=== PATIENT | male | born 1945 | race Caucasian/White ===

== ENCOUNTER 2017-05-28 13:53 | Emergency (ER) | payer MEDICARE, OTHER ==
[~2017-05-28] VITALS: Ht 185.4 cm; Wt 127.0 kg
[~2017-05-28 13:53] MED LIST: ACET500; ALBU3IS; ALBU90OI; ALBU90OI INH; ALBU90OI6 INH; ALPHA LIPOIC A200 MG; AMLO10; ASCO500 PO; ASPI325EC PO; ASPI81CH PO; ATOR40TA; ATOR40TA PO; AZELASTINE137 MCG/0.; AZELASTINE137 MCG/0. NS; Adipex-P37.5 MG PO; Afrin15 ML; Ambien10 MG; Amiodarone HCl200 MG PO; Aspir 8181 MG PO; BETA.05TC; BISA10S PR; BUPR100 PO; BUPR150ER PO; BUPR75 PO; CARV6.25 PO; CETI5 PO; CILO100 PO; CLIN1TS; CLIN1TS TOP; CLOB.05TC; CLON1 PO; CLOP75 PO; CYCL10 PO; Carvedilol6.25 MG PO; Celexa10 MG PO; Cipro500 MG PO; Cortisporin Ear10 M1; DOCU100 PO; DULO60 PO; Desyrel50 MG PO; Doxycycline Hy100 MG PO; EPIN.3I; EPIN.3I IM; EPIPEN0.3 MG/0.3 IM; ERGO50000 PO; ESCI10 PO; FAMO20 PO; FLUSAL2505 INH; FURO20 PO; FURO40 PO; Flonase 0.05% N16 GM; GAVILAX17 G1 PO; GLIM4 PO; Glimepiride2 MG PO; Glucophage1000 MG PO; HYDACE10B; Hytrin2 MG PO; INSDET100 SQ; INSUASPI INJ; INSUASPI SC; INSUGL100V INJ; Ipratr-Albuterol3 ML INH; JARDIANCE10 MG PO; KENALOG; LEVSOD100 PO; LIDO5TP TOP; LIRA0.6P INJ; LISI20 PO; Levemir Fl100 UNIT/M; MAGOXI400; MAGOXI400 PO; MEDI-PATCH WIT1 EACH TP; MELOXICAM; METF500; METO25ER PO; METTREX2.5 PO; MINO100 PO; MOME.1TC INH; MORP15ER PO; NAC600 MG; NITR.4SL SL; NYST100P TOP; NYST100TC; NYSTATIN1 EAC1 MC; Norco 5-325 Ta1 EACH PO; OSTERA TABLET1 EACH PO; OXYACE5T PO; OXYM.05NI; PANT40; PANT40 PO; PLETAL100 MG PO; POTCHL20ER PO; PREG75; PREG75 PO; PROM12.5S PO; PROM25 PO; Percocet 5-3251 EACH PO; Prednisone20 MG PO; ROPI.25; ROPI.25 PO; ROPI1 PO; SELENIUM SULFI120 ML TP; SENN187 PO; SITA100T2 PO; SOTO80 PO; Senna8.6 M1 PO; Senna8.6 MG PO; Sotalol120 MG PO; TAMS.4ER PO; TERA5 PO; TIOT18; TIOT18 INH; TORSE20; TORSE20 PO; TOUJEO SOL300 UNIT/1; TOUJEO SOL300 UNIT/1 SC; TRAM50 PO; TRAZ50 PO; VITAMIN D2000 UNIT PO; Ventolin Soln3 ML INH; XARELTO15 MG PO; XARELTO20 MG; XARELTO20 MG PO; ZOLP5 PO; Zithromax250 MG PO; Zofran Odt4 MG PO; [UNRECOGNIZED DRUG - OTHER]
[2017-05-28 14:56] LABS: BASOPHILS ABSOLUTE AUTO 0.06 K/mm3 (0.00-0.23); BASOPHILS PERCENT AUTO 1 % (0-2); EOSINOPHILS ABSOLUTE AUTO 0.09 K/mm3 (0.00-0.68); EOSINOPHILS PERCENT AUTO 1 % (0-6); Hematocrit 42.4 % (37.0-53.0); Hemoglobin 12.9 g/dL (13.5-17.5); IMMATURE GRAN ABSOLUTE AUTO 0.04 K/mm3 (0.00-0.10); IMMATURE GRAN PERCENT AUTO 1 % (0-1); LYMPHOCYTES ABSOLUTE AUTO 1.16 K/mm3 (0.84-5.20); LYMPHOCYTES PERCENT AUTO 16 % (21-46); MONOCYTES ABSOLUTE AUTO 0.37 K/mm3 (0.16-1.47); MONOCYTES PERCENT AUTO 5 % (4-13); Mean Corpuscular HGB 27.9 pg (26.0-34.0); Mean Corpuscular HGB Conc 30.4 g/dL (31.5-36.5); Mean Corpuscular Volume 92 fL (80-100); Mean Platelet Volume 11.1 fL (9.1-12.4); NEUTROPHILS ABSOLUTE AUTO 5.76 K/mm3 (1.96-9.15); NEUTROPHILS PERCENT AUTO 77 % (41-73); Platelet Count 163 K/mm3 (150-400); RDW Coefficient Variation 15.7 % (11.7-14.2); RDW Standard Deviation 52.4 fL (35.1-46.3); Red Blood Cell Count 4.62 M/mm3 (4.30-5.90); White Blood Cell Count 7.48 K/mm3 (4.00-11.30)
[2017-05-28 15:18] LABS: Alanine Aminotransfer (ALT/SGP 34 U/L (12-78); Albumin, Blood 3.5 g/dL (3.4-5.0); Albumin/Globulin Ratio 0.9 (0.8-1.8); Alk Phos 138 U/L (50-136); Anion Gap 7 mmol/L (6-16); Aspartate Aminotrans (AST/SGOT 25 U/L (12-37); Bilirubin, Total 0.5 mg/dL (0.1-1.0); Blood Urea Nitrogen 19 mg/dL (8-24); Bun/Creatinine Ratio 16.2 (12.0-20.0); CO2, Blood 24 mmol/L (21-32); Calcium, Blood 8.8 mg/dL (8.5-10.1); Chloride, Blood 111 mmol/L (98-108); Creatinine, Blood 1.17 mg/dL (0.60-1.20); Globulin, Blood 3.7 g/dL (2.2-4.0); Glomerular Filtration Rate >60 (60-); Glucose, Blood 156 mg/dL (70-99); Potassium, Blood 4.5 mmol/L (3.5-5.5); Sodium, Blood 142 mmol/L (136-145); Total Protein, Blood 7.2 g/dL (6.4-8.2); Troponin I <0.015 ng/mL (0.000-0.040)
== END 2017-05-28 16:07 | disposition home or self-care (01) ==
LOC: ER 13:53
PROVIDERS: Emergency Medicine
DX: E87.70 Fluid overload, unspecified (principal); I48.91 Unspecified atrial fibrillation; I12.9 Hypertensive chronic kidney disease with stage 1 through stage 4 chronic kidney disease, or unspecified chronic kidney disease; E11.22 Type 2 diabetes mellitus with diabetic chronic kidney disease; E66.01 Morbid (severe) obesity due to excess calories; N18.9 Chronic kidney disease, unspecified; E78.5 Hyperlipidemia, unspecified; Z87.891 Personal history of nicotine dependence
CPT/HCPCS: 36415; 71046; 80053; 83880; 84484; 85025; 93005; 93010; 93971; 99284

== ENCOUNTER 2018-04-17 14:38 | Emergency (ER) | payer MEDICARE, OTHER ==
[~2018-04-17] VITALS: Ht 182.9 cm; Wt 127.5 kg
[~2018-04-17 14:38] MED LIST changes: -INSUASPI SC; +Novolog100 UNIT/1 SC
[2018-04-17 15:06] LABS: BASOPHILS ABSOLUTE AUTO 0.04 K/mm3 (0.00-0.23); BASOPHILS PERCENT AUTO 0 % (0-2); EOSINOPHILS PERCENT AUTO 1 % (0-6); Hematocrit 50.3 % (37.0-53.0); Hemoglobin 16.2 g/dL (13.5-17.5); IMMATURE GRAN ABSOLUTE AUTO 0.04 K/mm3 (0.00-0.10); IMMATURE GRAN PERCENT AUTO 0 % (0-1); LYMPHOCYTES ABSOLUTE AUTO 1.76 K/mm3 (0.84-5.20); LYMPHOCYTES PERCENT AUTO 19 % (21-46); MONOCYTES ABSOLUTE AUTO 0.45 K/mm3 (0.16-1.47); MONOCYTES PERCENT AUTO 5 % (4-13); Mean Corpuscular HGB 30.6 pg (26.0-34.0); Mean Corpuscular HGB Conc 32.2 g/dL (31.5-36.5); Mean Corpuscular Volume 95 fL (80-100); Mean Platelet Volume 11.1 fL (9.1-12.4); NEUTROPHILS PERCENT AUTO 74 % (41-73); Platelet Count 208 K/mm3 (150-400); RDW Coefficient Variation 14.4 % (11.7-14.2); RDW Standard Deviation 50.6 fL (35.1-46.3); Red Blood Cell Count 5.29 M/mm3 (4.30-5.90); White Blood Cell Count 9.19 K/mm3 (4.00-11.30)
[2018-04-17 15:23] LABS: Alanine Aminotransfer (ALT/SGP 33 U/L (12-78); Albumin, Blood 3.6 g/dL (3.4-5.0); Albumin/Globulin Ratio 0.9 (0.8-1.8); Alk Phos 111 U/L (50-136); Anion Gap 8 mmol/L (6-16); Aspartate Aminotrans (AST/SGOT 32 U/L (12-37); Bilirubin, Total 0.6 mg/dL (0.1-1.0); Blood Urea Nitrogen 27 mg/dL (8-24); Bun/Creatinine Ratio 20.9 (12.0-20.0); CO2, Blood 25 mmol/L (21-32); Calcium, Blood 8.9 mg/dL (8.5-10.1); Chloride, Blood 108 mmol/L (98-108); Creatinine, Blood 1.29 mg/dL (0.60-1.20); Globulin, Blood 4.1 g/dL (2.2-4.0); Glomerular Filtration Rate 58 (60-); Glucose, Blood 141 mg/dL (70-99); Potassium, Blood 4.6 mmol/L (3.5-5.5); Sodium, Blood 141 mmol/L (136-145); Total Protein, Blood 7.7 g/dL (6.4-8.2); Troponin I <0.015 ng/mL (0.000-0.040)
[2018-04-17] MEDS ORDERED: DOCU100 PO (15:41)
[2018-04-17] MEDS ORDERED: TRAZ50 PO (15:47)
== END 2018-04-17 16:43 | disposition home or self-care (01) ==
LOC: ER 14:38
PROVIDERS: Emergency Medicine
DX: R07.9 Chest pain, unspecified (principal); R42 Dizziness and giddiness; R53.83 Other fatigue; R53.81 Other malaise; I48.91 Unspecified atrial fibrillation; I25.10 Atherosclerotic heart disease of native coronary artery without angina pectoris; I12.9 Hypertensive chronic kidney disease with stage 1 through stage 4 chronic kidney disease, or unspecified chronic kidney disease; E11.22 Type 2 diabetes mellitus with diabetic chronic kidney disease; N18.9 Chronic kidney disease, unspecified; E78.5 Hyperlipidemia, unspecified; Z88.8 Allergy status to other drugs, medicaments and biological substances; Z88.0 Allergy status to penicillin; Z79.899 Other long term (current) drug therapy; Z79.4 Long term (current) use of insulin; Z87.891 Personal history of nicotine dependence
CPT/HCPCS: 71046; 80053; 84484; 85025; 93005; 93010; 99284-25

== ENCOUNTER 2018-08-24 07:11 | Day surgery (SDC) | payer MEDICARE, OTHER ==
[~2018-08-24] VITALS: Ht 182.9 cm; Wt 132.0 kg
[2018-08-24] MEDS ORDERED: CEPH500 PO (07:48)
[2018-08-24] MEDS ORDERED: TRULICITY1.5 MG/0.5 SC (07:49)
--- NOTE | 2018-08-24 10:47 | NUR ---
DR MCGILL TO ROOM DISCUSSING PLAN OF CARE. VSS. SRIRAM. R FEM SITE REMAINS CLEAR. CALL LIGHT WITHIN REACH. FAMILY AT BEDSIDE
--- NOTE | 2018-08-24 13:15 | NUR ---
PT AND FAMILY VERBALIZES UNDERSTANDING WRITTEN AND VERBAL ORDERS. DENIES QUESTIONS. ROSALINO. SRIRAM. R FEMORAL SITE CLEAR.
== END 2018-08-24 12:17 | disposition home or self-care (01) ==
LOC: MHTC 07:11
DX: I73.9 Peripheral vascular disease, unspecified (principal); I48.0 Paroxysmal atrial fibrillation; I25.10 Atherosclerotic heart disease of native coronary artery without angina pectoris; I10 Essential (primary) hypertension; E11.40 Type 2 diabetes mellitus with diabetic neuropathy, unspecified; E78.5 Hyperlipidemia, unspecified; F32.9 Major depressive disorder, single episode, unspecified; G47.33 Obstructive sleep apnea (adult) (pediatric); E66.01 Morbid (severe) obesity due to excess calories; Z99.89 Dependence on other enabling machines and devices; Z88.8 Allergy status to other drugs, medicaments and biological substances; Z91.030 Bee allergy status; Z88.0 Allergy status to penicillin; Z79.899 Other long term (current) drug therapy
CPT/HCPCS: 85347; 99152; 99153; C1725; C1760; C1769; C1876; C1887; C1894; C2623; J1644; J2250; J2405; J2720; J3010; J7030; Q9967

== ENCOUNTER → 2018-09-17 | Day surgery (SDC) | payer MEDICARE, OTHER ==
[~2018-09-17] VITALS: Ht 182.9 cm; Wt 130.0 kg
[~2018-09-17] MED LIST changes: +CEPH500 PO; +Cephalexin500 MG PO; +Medi-Lyte Tabl1 EACH PO; +PRAZ1 PO; +Pedi-Dri 100,0060 GM; +STRIVERDI RESPIM4 GM INH; +TOUJEO MAX300 UNIT/1 SC; +TRULICITY0.75 MG/0. SC; +TRULICITY1.5 MG/0.5 SC; +Triamcinolone A15 G2 EXT
== END ==
LOC: MHTC 03:04
DX: I77.9 Disorder of arteries and arterioles, unspecified (principal); Z88.8 Allergy status to other drugs, medicaments and biological substances; Z88.0 Allergy status to penicillin
CPT/HCPCS: 85347; 99152; 99153; C1714; C1725; C1760; C1769; C1884; C1887; C1894; C2623; J0360; J1644; J2060; J2250; J2405; J2720; J3010; J7030; J7040; Q9967

== ENCOUNTER 2018-11-12 09:53 | Day surgery (SDC) | payer MEDICARE, OTHER ==
[~2018-11-12] VITALS: Ht 182.9 cm; Wt 125.5 kg
--- NOTE | 2018-11-12 20:49 | NUR ---
Assumed care of pt from ROXANN Ogden. Pt with VSS. R groin site without bleed, without hematoma, without tenderness. Site soft. Angioseal in place, no further bleeding from site during time in which this RN assumed care. Pt alert and oriented, conversing appropriately in conversation, denies chest pain, denies chest pressure, denies SOB, denies dizziness or lightheadedness. Pt states "I am ready to just go home". Pt at bedside conversing with pt without concerns. Education provided to patient regarding discharge. Questions answered, pt verbalized understanding. Pt instructed when to follow up with Shanae per DC plan. Pt put follow up appointment date into her phone calendar. Vitals remained stable at time of discharge. IV removed, tele removed, pt wheeled to exit by this RN at 2039.
== END 2018-11-12 20:40 | disposition home or self-care (01) ==
LOC: MHTC 09:53 → PCU 16:43 → MHTC 20:40
PROC: 047L3Z1 Dilation of Left Femoral Artery using Drug-Coated Balloon, Percutaneous Approach (ICD-10-PCS; principal; 2018-11-12)
PROC: 047S3Z1 Dilation of Left Posterior Tibial Artery using Drug-Coated Balloon, Percutaneous Approach (ICD-10-PCS; principal; 2018-11-12)
PROC: 04CL3ZZ Extirpation of Matter from Left Femoral Artery, Percutaneous Approach (ICD-10-PCS; principal; 2018-11-12)
PROC: 04CS3ZZ Extirpation of Matter from Left Posterior Tibial Artery, Percutaneous Approach (ICD-10-PCS; principal; 2018-11-12)
PROC: 047Q3ZZ Dilation of Left Anterior Tibial Artery, Percutaneous Approach (ICD-10-PCS; principal; 2018-11-12)
DX: E11.51 Type 2 diabetes mellitus with diabetic peripheral angiopathy without gangrene (principal); E78.5 Hyperlipidemia, unspecified; I48.0 Paroxysmal atrial fibrillation; I25.10 Atherosclerotic heart disease of native coronary artery without angina pectoris; I10 Essential (primary) hypertension; E66.01 Morbid (severe) obesity due to excess calories; G47.33 Obstructive sleep apnea (adult) (pediatric); E11.42 Type 2 diabetes mellitus with diabetic polyneuropathy; G89.29 Other chronic pain; M54.5 Low back pain; I69.928 Other speech and language deficits following unspecified cerebrovascular disease; I69.992 Facial weakness following unspecified cerebrovascular disease; F32.9 Major depressive disorder, single episode, unspecified; Z95.1 Presence of aortocoronary bypass graft; Z88.8 Allergy status to other drugs, medicaments and biological substances; Z88.0 Allergy status to penicillin; Z88.5 Allergy status to narcotic agent; Z79.899 Other long term (current) drug therapy; Z79.01 Long term (current) use of anticoagulants; Z79.4 Long term (current) use of insulin
CPT/HCPCS: 36247; 37225; 37229; 75710; 75774; 82947; 85347; 99152; 99153; C1714; C1724; C1725; C1760; C1769; C1884; C1887; C1894; C2623; J1644; J2250; J2405; J3010; J7030; J7040; Q9967

== ENCOUNTER → 2019-02-27 | Outpatient (CLI) | payer MEDICARE, OTHER ==
[2019-02-27 10:51] LABS: BASOPHILS ABSOLUTE AUTO 0.04 K/mm3 (0.00-0.23); BASOPHILS PERCENT AUTO 1 % (0-2); EOSINOPHILS PERCENT AUTO 1 % (0-6); Hematocrit 43.7 % (37.0-53.0); Hemoglobin 14.1 g/dL (13.5-17.5); IMMATURE GRAN ABSOLUTE AUTO 0.03 K/mm3 (0.00-0.10); IMMATURE GRAN PERCENT AUTO 0 % (0-1); LYMPHOCYTES ABSOLUTE AUTO 0.88 K/mm3 (0.84-5.20); LYMPHOCYTES PERCENT AUTO 10 % (21-46); MONOCYTES ABSOLUTE AUTO 0.24 K/mm3 (0.16-1.47); MONOCYTES PERCENT AUTO 3 % (4-13); Mean Corpuscular HGB 29.2 pg (26.0-34.0); Mean Corpuscular HGB Conc 32.3 g/dL (31.5-36.5); Mean Corpuscular Volume 91 fL (80-100); Mean Platelet Volume 10.8 fL (9.1-12.4); NEUTROPHILS ABSOLUTE AUTO 7.53 K/mm3 (1.96-9.15); NEUTROPHILS PERCENT AUTO 85 % (41-73); Platelet Count 192 K/mm3 (150-400); RDW Coefficient Variation 14.6 % (11.7-14.2); RDW Standard Deviation 47.4 fL (35.1-46.3); Red Blood Cell Count 4.83 M/mm3 (4.30-5.90); White Blood Cell Count 8.82 K/mm3 (4.00-11.30)
[2019-02-27 11:04] LABS: Alanine Aminotransfer (ALT/SGP 19 U/L (12-78); Albumin, Blood 3.4 g/dL (3.4-5.0); Albumin/Globulin Ratio 0.8 (0.8-1.8); Alk Phos 106 U/L (40-126); Anion Gap 12 mmol/L (6-16); Aspartate Aminotrans (AST/SGOT 17 U/L (12-37); Bilirubin, Total 0.8 mg/dL (0.1-1.0); Blood Urea Nitrogen 16 mg/dL (8-24); Bun/Creatinine Ratio 11.8 (12.0-20.0); CO2, Blood 26 mmol/L (21-32); Chloride, Blood 104 mmol/L (98-108); Creatinine, Blood 1.36 mg/dL (0.60-1.20); Globulin, Blood 4.3 g/dL (2.2-4.0); Glomerular Filtration Rate 51 (60-); Glucose, Blood 146 mg/dL (70-99); Potassium, Blood 4.2 mmol/L (3.5-5.5); Sodium, Blood 142 mmol/L (136-145); Total Protein, Blood 7.7 g/dL (6.4-8.2)
[2019-02-27 11:07] LABS: Troponin I <0.017 ng/mL (0.000-0.040)
== END | disposition home or self-care (01) ==
LOC: LAB SHORT 10:43 → LAB EV 10:43
PROVIDERS: Physician Assistant Surgical
DX: R07.89 Other chest pain (principal)
CPT/HCPCS: 80053; 84484; 85025

== ENCOUNTER → 2019-03-07 | Outpatient (CLI) | payer MEDICARE, OTHER ==
[2019-03-07 16:46] LABS: BASOPHILS ABSOLUTE AUTO 0.03 K/mm3 (0.00-0.23); BASOPHILS PERCENT AUTO 0 % (0-2); EOSINOPHILS PERCENT AUTO 0 % (0-6); Hematocrit 42.9 % (37.0-53.0); Hemoglobin 14.2 g/dL (13.5-17.5); IMMATURE GRAN PERCENT AUTO 1 % (0-1); LYMPHOCYTES PERCENT AUTO 7 % (21-46); MONOCYTES ABSOLUTE AUTO 0.36 K/mm3 (0.16-1.47); MONOCYTES PERCENT AUTO 2 % (4-13); Mean Corpuscular HGB 29.2 pg (26.0-34.0); Mean Corpuscular HGB Conc 33.1 g/dL (31.5-36.5); Mean Corpuscular Volume 88 fL (80-100); Mean Platelet Volume 10.4 fL (9.1-12.4); NEUTROPHILS ABSOLUTE AUTO 17.66 K/mm3 (1.96-9.15); NEUTROPHILS PERCENT AUTO 90 % (41-73); Platelet Count 260 K/mm3 (150-400); RDW Coefficient Variation 15.3 % (11.7-14.2); RDW Standard Deviation 48.1 fL (35.1-46.3); Red Blood Cell Count 4.86 M/mm3 (4.30-5.90); White Blood Cell Count 19.55 K/mm3 (4.00-11.30)
[2019-03-07 16:57] LABS: Alanine Aminotransfer (ALT/SGP 21 U/L (12-78); Albumin, Blood 3.6 g/dL (3.4-5.0); Albumin/Globulin Ratio 0.9 (0.8-1.8); Alk Phos 109 U/L (40-126); Anion Gap 13 mmol/L (6-16); Aspartate Aminotrans (AST/SGOT 16 U/L (12-37); Bilirubin, Total 0.8 mg/dL (0.1-1.0); Blood Urea Nitrogen 20 mg/dL (8-24); Bun/Creatinine Ratio 12.3 (12.0-20.0); CO2, Blood 22 mmol/L (21-32); Calcium, Blood 8.9 mg/dL (8.5-10.1); Chloride, Blood 104 mmol/L (98-108); Creatinine, Blood 1.62 mg/dL (0.60-1.20); Globulin, Blood 4.1 g/dL (2.2-4.0); Glomerular Filtration Rate 42 (60-); Glucose, Blood 236 mg/dL (70-99); Potassium, Blood 4.2 mmol/L (3.5-5.5); Sodium, Blood 139 mmol/L (136-145); Total Protein, Blood 7.7 g/dL (6.4-8.2)
[2019-03-07 16:59] LABS: Troponin I <0.017 ng/mL (0.000-0.040)
== END ==
LOC: LAB SHORT 16:39 → LAB EV 16:39
PROVIDERS: Emergency Medicine
DX: R07.9 Chest pain, unspecified (principal); J22 Unspecified acute lower respiratory infection
CPT/HCPCS: 80053; 83880; 84484; 85025

== ENCOUNTER → 2019-03-15 | Outpatient (CLI) | payer MEDICARE, OTHER ==
[~2019-03-15] MED LIST changes: +CEFD300 PO; +CIPDEXSU BOTHEARS; +CLOB.05TO; +DONEPEZIL HCL10 MG PO; +Minipress1 MG PO; -Pedi-Dri 100,0060 GM; +Pedi-Dri 100,0060 GM TOP; +STIOLTO RESPIMAT4 GM INH; +TRAZ150T57 PO; +Xyzal5 MG PO
[2019-03-15 16:34] LABS: BASOPHILS ABSOLUTE AUTO 0.06 K/mm3 (0.00-0.23); BASOPHILS PERCENT AUTO 1 % (0-2); EOSINOPHILS ABSOLUTE AUTO 0.09 K/mm3 (0.00-0.68); EOSINOPHILS PERCENT AUTO 1 % (0-6); Hematocrit 44.9 % (37.0-53.0); Hemoglobin 14.9 g/dL (13.5-17.5); IMMATURE GRAN ABSOLUTE AUTO 0.07 K/mm3 (0.00-0.10); IMMATURE GRAN PERCENT AUTO 1 % (0-1); LYMPHOCYTES ABSOLUTE AUTO 1.47 K/mm3 (0.84-5.20); LYMPHOCYTES PERCENT AUTO 16 % (21-46); MONOCYTES ABSOLUTE AUTO 0.29 K/mm3 (0.16-1.47); MONOCYTES PERCENT AUTO 3 % (4-13); Mean Corpuscular HGB 29.5 pg (26.0-34.0); Mean Corpuscular HGB Conc 33.2 g/dL (31.5-36.5); Mean Corpuscular Volume 89 fL (80-100); Mean Platelet Volume 11.1 fL (9.1-12.4); NEUTROPHILS PERCENT AUTO 78 % (41-73); Platelet Count 258 K/mm3 (150-400); RDW Coefficient Variation 16.2 % (11.7-14.2); Red Blood Cell Count 5.05 M/mm3 (4.30-5.90); White Blood Cell Count 9.08 K/mm3 (4.00-11.30)
[2019-03-15 16:59] LABS: Alanine Aminotransfer (ALT/SGP 18 U/L (12-78); Albumin, Blood 3.9 g/dL (3.4-5.0); Albumin/Globulin Ratio 1.1 (0.8-1.8); Alk Phos 122 U/L (40-126); Anion Gap 10 mmol/L (6-16); Aspartate Aminotrans (AST/SGOT 22 U/L (12-37); Bilirubin, Total 0.5 mg/dL (0.1-1.0); Blood Urea Nitrogen 18 mg/dL (8-24); Bun/Creatinine Ratio 15.7 (12.0-20.0); CO2, Blood 25 mmol/L (21-32); Calcium, Blood 9.1 mg/dL (8.5-10.1); Chloride, Blood 107 mmol/L (98-108); Creatinine, Blood 1.15 mg/dL (0.60-1.20); Globulin, Blood 3.7 g/dL (2.2-4.0); Glomerular Filtration Rate >60 (60-); Glucose, Blood 190 mg/dL (70-99); Potassium, Blood 4.6 mmol/L (3.5-5.5); Sodium, Blood 142 mmol/L (136-145); Total Protein, Blood 7.6 g/dL (6.4-8.2)
[2019-03-15 17:06] LABS: Troponin I <0.017 ng/mL (0.000-0.040)
== END | disposition home or self-care (01) ==
LOC: LAB EV 16:30 → LAB SHORT 16:30
PROVIDERS: Physician Assistant
DX: R53.83 Other fatigue (principal)
CPT/HCPCS: 80053; 83880; 84484; 85025

== ENCOUNTER 2019-05-14 13:03 | Observation (INO) | payer OTHER, MEDICARE ==
[~2019-05-14] VITALS: Ht 185.4 cm; Wt 122.4 kg
[~2019-05-14 13:03] MED LIST changes: -CEFD300 PO; -CIPDEXSU BOTHEARS; -CLOB.05TO; -DONEPEZIL HCL10 MG PO; -Minipress1 MG PO; -STIOLTO RESPIMAT4 GM INH; -TRAZ150T57 PO; -Xyzal5 MG PO
[2019-05-14] MEDS ORDERED: CEFD300 PO (13:35)
[2019-05-14] MEDS ORDERED: ALBU90OI INH (13:35)
[2019-05-14 13:36] LABS: BASOPHILS ABSOLUTE AUTO 0.04 K/mm3 (0.00-0.23); BASOPHILS PERCENT AUTO 1 % (0-2); EOSINOPHILS ABSOLUTE AUTO 0.07 K/mm3 (0.00-0.68); EOSINOPHILS PERCENT AUTO 1 % (0-6); Hematocrit 44.6 % (37.0-53.0); Hemoglobin 14.2 g/dL (13.5-17.5); IMMATURE GRAN ABSOLUTE AUTO 0.03 K/mm3 (0.00-0.10); IMMATURE GRAN PERCENT AUTO 0 % (0-1); LYMPHOCYTES ABSOLUTE AUTO 1.44 K/mm3 (0.84-5.20); LYMPHOCYTES PERCENT AUTO 17 % (21-46); MONOCYTES PERCENT AUTO 5 % (4-13); Mean Corpuscular HGB Conc 31.8 g/dL (31.5-36.5); Mean Corpuscular Volume 94 fL (80-100); NEUTROPHILS ABSOLUTE AUTO 6.29 K/mm3 (1.96-9.15); NEUTROPHILS PERCENT AUTO 76 % (41-73); Platelet Count 194 K/mm3 (150-400); RDW Coefficient Variation 15.4 % (11.7-14.2); RDW Standard Deviation 53.9 fL (35.1-46.3); Red Blood Cell Count 4.74 M/mm3 (4.30-5.90); White Blood Cell Count 8.27 K/mm3 (4.00-11.30)
[2019-05-14] MEDS ORDERED: Norco 5-325 Ta1 EACH PO (13:36)
[2019-05-14] MEDS ORDERED: DONEPEZIL HCL10 MG PO (13:36)
[2019-05-14] MEDS ORDERED: CIPDEXSU BOTHEARS (13:36)
[2019-05-14] MEDS ORDERED: CLOB.05TO (13:36)
[2019-05-14] MEDS ORDERED: STIOLTO RESPIMAT4 GM INH (13:37)
[2019-05-14] MEDS ORDERED: Xyzal5 MG PO (13:37)
[2019-05-14] MEDS ORDERED: POTCHL20ER PO ×2 (13:37→16:40)
[2019-05-14 13:45] LABS: Alanine Aminotransfer (ALT/SGP 30 U/L (12-78); Albumin, Blood 3.4 g/dL (3.4-5.0); Albumin/Globulin Ratio 0.9 (0.8-1.8); Alk Phos 110 U/L (50-136); Anion Gap 7 mmol/L (6-16); Aspartate Aminotrans (AST/SGOT 14 U/L (12-37); Bilirubin, Total 0.4 mg/dL (0.1-1.0); Blood Urea Nitrogen 18 mg/dL (8-24); Bun/Creatinine Ratio 14.5 (12.0-20.0); CO2, Blood 24 mmol/L (21-32); Calcium, Blood 9.3 mg/dL (8.5-10.1); Chloride, Blood 110 mmol/L (98-108); Creatinine, Blood 1.24 mg/dL (0.60-1.20); Globulin, Blood 3.6 g/dL (2.2-4.0); Glomerular Filtration Rate >60 (60-); Glucose, Blood 185 mg/dL (70-99); Potassium, Blood 4.3 mmol/L (3.5-5.5); Sodium, Blood 141 mmol/L (136-145)
[2019-05-14] MEDS ORDERED: TRULICITY1.5 MG/0.5 SC (16:25)
[2019-05-14] MEDS ORDERED: TRAZ150T57 PO (16:26)
[2019-05-14] MEDS ORDERED: Minipress1 MG PO (16:27)
[2019-05-14] MEDS ORDERED: CYCL10 PO (16:37)
[2019-05-14 17:03] LABS: Source, Urine Clean Catch
[2019-05-14 17:07] LABS: Bilirubin, Urine Neg (Neg); Blood, Urine Neg (Neg); Glucose Qualitative, Urine 4+ (Neg); Ketones, Urine Neg (Neg); Leukocyte Esterase, Urine Neg (Neg); Nitrite, Urine Neg (Neg); Protein, Urine Neg (Neg); Urobilinogen, Urine NORM (Normal)
[2019-05-14 17:14] LABS: Appearance, Urine Clear (Clear); Color, Urine Yellow (P-Yellow)
--- NOTE | 2019-05-14 18:38 | NUR ---
SHIFT SUMMARY PATIENT TO THE FLOOR AT 1830. HE HAS HIS CURRENT BLOOD SUGAR MACHINE ON HIM. NO ACUTE CONCERNS AT THIS TIME. HIS CBG WAS MONITORED AT 92 ON HIS BLOOD SUGAR MACHINE. PATIENT IS ON OBSERVATION STATUS AT THIS TIME.
--- NOTE | 2019-05-15 03:56 | NUR ---
SHIFT SUMMARY A/O, ABLE TO MAKE NEEDS KNOWN. COOPERATIVE WITH CARE. CALLS AND ANSWERS QUESTIONS APPROPRIATELY. NEURO CHECKS REMAIN WNL; PUPILS PERRLA, ROUTE SALES SPECIALIST EQUAL BILATERALLY, AND EXHIBITING A STEADY GAIT UPON AMBULATION. NO C/O PAIN/DISCOMFORT. EXTERNAL BLOOD SUGAR MACHINE SHOWED INSULIN @ 134; RECIEVED 70 UNITS OF HOME INSULIN TUJEO THAT WAS VERIFIED BY PHARMACY. USED HOME CPAP MACHINE WHILE SLEEPING. NO ACUTE CHANGES NOTED. VSS/AFEBRILE. HYPERTENSIVE, HOWEVER ON TREND WITH PREVIOUS PRESSURES. BED IN LOWEST POSITION. CALL LIGHT AND BELONGINGS WITHIN REACH. WCTM. REPORT TO ONCOMING RN.
[2019-05-15] MEDS ORDERED: ASPI81CH PO (13:40)
--- NOTE | 2019-05-15 14:26 | NUR ---
discharge summary patient is pleasant, alert and oriented. iv removed. all discharge instructions are spoken through with the and the patient. patient denies any questions at time of discharge. he was wheeled out by the aid.
== END 2019-05-15 13:56 | disposition home or self-care (01) ==
LOC: ER 13:03 → MEDS 13:04
PROVIDERS: Emergency Medicine; ADMIT Internal Medicine
DX: G45.9 Transient cerebral ischemic attack, unspecified (principal); I48.20 Chronic atrial fibrillation, unspecified; I25.10 Atherosclerotic heart disease of native coronary artery without angina pectoris; E03.9 Hypothyroidism, unspecified; J44.9 Chronic obstructive pulmonary disease, unspecified; E11.22 Type 2 diabetes mellitus with diabetic chronic kidney disease; I12.9 Hypertensive chronic kidney disease with stage 1 through stage 4 chronic kidney disease, or unspecified chronic kidney disease; N18.2 Chronic kidney disease, stage 2 (mild); E78.5 Hyperlipidemia, unspecified; Z79.01 Long term (current) use of anticoagulants; Z95.1 Presence of aortocoronary bypass graft; Z79.4 Long term (current) use of insulin; Z79.82 Long term (current) use of aspirin; Z79.899 Other long term (current) drug therapy; Z88.8 Allergy status to other drugs, medicaments and biological substances; Z88.5 Allergy status to narcotic agent; Z88.0 Allergy status to penicillin; Z87.891 Personal history of nicotine dependence; E66.01 Morbid (severe) obesity due to excess calories; Z98.890 Other specified postprocedural states; Z68.35 Body mass index [BMI] 35.0-35.9, adult
CPT/HCPCS: 36415; 70450; 80053; 81003; 85025; 93005; 93010; 96372; 97161; 97530; 99285-25; G0378; J1650; J1815

== ENCOUNTER → 2019-05-27 | Outpatient (CLI) | payer OTHER, MEDICARE ==
[~2019-05-27] MED LIST changes: +CEFD300 PO; +CIPDEXSU BOTHEARS; +CLOB.05TO; +DONEPEZIL HCL10 MG PO; +Minipress1 MG PO; +STIOLTO RESPIMAT4 GM INH; +TRAZ150T57 PO; +Xyzal5 MG PO
== END | disposition home or self-care (01) ==
LOC: LAB 16:55 → LAB SHORT 16:55
DX: L08.0 Pyoderma (principal)
CPT/HCPCS: 87070; 87205

== ENCOUNTER 2019-11-11 11:17 | Emergency (ER) | payer OTHER, MEDICARE ==
[~2019-11-11] VITALS: Ht 185.4 cm; Wt 124.3 kg
[2019-11-11 12:18] LABS: Source, Urine Catheter
[2019-11-11 12:25] LABS: Appearance, Urine Clear (Clear); Bilirubin, Urine Neg (Neg); Blood, Urine Neg (Neg); Color, Urine Yellow (P-Yellow); Glucose Qualitative, Urine 4+ (Neg); Ketones, Urine 3+ (Neg); Leukocyte Esterase, Urine Neg (Neg); Nitrite, Urine Neg (Neg); Protein, Urine 2+ (Neg); Urobilinogen, Urine NORM (Normal)
[2019-11-11 12:31] LABS: BASOPHILS ABSOLUTE AUTO 0.03 K/mm3 (0.00-0.23); BASOPHILS PERCENT AUTO 0 % (0-2); EOSINOPHILS ABSOLUTE AUTO 0.08 K/mm3 (0.00-0.68); EOSINOPHILS PERCENT AUTO 1 % (0-6); Hematocrit 41.7 % (37.0-53.0); IMMATURE GRAN ABSOLUTE AUTO 0.05 K/mm3 (0.00-0.10); IMMATURE GRAN PERCENT AUTO 1 % (0-1); LYMPHOCYTES ABSOLUTE AUTO 0.85 K/mm3 (0.84-5.20); LYMPHOCYTES PERCENT AUTO 8 % (21-46); MONOCYTES ABSOLUTE AUTO 0.66 K/mm3 (0.16-1.47); MONOCYTES PERCENT AUTO 6 % (4-13); Mean Corpuscular HGB 28.4 pg (26.0-34.0); Mean Corpuscular HGB Conc 31.2 g/dL (31.5-36.5); Mean Corpuscular Volume 91 fL (80-100); Mean Platelet Volume 11.6 fL (9.1-12.4); NEUTROPHILS ABSOLUTE AUTO 9.17 K/mm3 (1.96-9.15); NEUTROPHILS PERCENT AUTO 85 % (41-73); Platelet Count 190 K/mm3 (150-400); RDW Coefficient Variation 15.9 % (11.7-14.2); RDW Standard Deviation 53.8 fL (35.1-46.3); Red Blood Cell Count 4.57 M/mm3 (4.30-5.90); White Blood Cell Count 10.84 K/mm3 (4.00-11.30)
[2019-11-11 12:41] LABS: White Blood Cells, Urine 0-2 /hpf (0-5)
[2019-11-11 12:42] LABS: Red Blood Cells, Urine 0-2 /hpf (0-2); Squamous Epithelial Cells Rare /hpf (Few)
[2019-11-11 12:43] LABS: Amorphous Light (0-Heavy); Bacteria Few /hpf
[2019-11-11 12:46] LABS: Alanine Aminotransfer (ALT/SGP 61 U/L (12-78); Albumin/Globulin Ratio 0.7 (0.8-1.8); Alk Phos 134 U/L (50-136); Anion Gap 9 mmol/L (6-16); Aspartate Aminotrans (AST/SGOT 33 U/L (12-37); Bilirubin, Total 1.2 mg/dL (0.1-1.0); Blood Urea Nitrogen 20 mg/dL (8-24); CO2, Blood 22 mmol/L (21-32); Calcium, Blood 9.5 mg/dL (8.5-10.1); Chloride, Blood 105 mmol/L (98-108); Creatinine, Blood 1.11 mg/dL (0.60-1.20); Globulin, Blood 4.4 g/dL (2.2-4.0); Glomerular Filtration Rate >60 (60-); Glucose, Blood 126 mg/dL (70-99); Potassium, Blood 4.4 mmol/L (3.5-5.5); Sodium, Blood 136 mmol/L (136-145); Total Protein, Blood 7.4 g/dL (6.4-8.2); Troponin I <0.015 ng/mL (0.000-0.040)
[2019-11-11] MEDS ORDERED: MINO50 PO (13:48)
[2019-11-11] MEDS ORDERED: HYDR1TAB94 PO (13:48)
== END 2019-11-11 16:20 | disposition home or self-care (01) ==
LOC: ER 11:17
PROVIDERS: Emergency Medicine
DX: R33.9 Retention of urine, unspecified (principal); Z88.0 Allergy status to penicillin; Z88.8 Allergy status to other drugs, medicaments and biological substances; Z88.5 Allergy status to narcotic agent; Z79.899 Other long term (current) drug therapy; Z79.4 Long term (current) use of insulin; Z79.82 Long term (current) use of aspirin; I12.9 Hypertensive chronic kidney disease with stage 1 through stage 4 chronic kidney disease, or unspecified chronic kidney disease; N18.9 Chronic kidney disease, unspecified; E11.22 Type 2 diabetes mellitus with diabetic chronic kidney disease; J44.9 Chronic obstructive pulmonary disease, unspecified; E78.5 Hyperlipidemia, unspecified; E11.51 Type 2 diabetes mellitus with diabetic peripheral angiopathy without gangrene; I73.9 Peripheral vascular disease, unspecified; G73.3 Myasthenic syndromes in other diseases classified elsewhere; I25.810 Atherosclerosis of coronary artery bypass graft(s) without angina pectoris; Z87.891 Personal history of nicotine dependence
CPT/HCPCS: 36415; 51702; 51798; 71045; 74176; 80053; 81001; 84484; 85025; 93005; 93010; 96360; 99284-25; A9270-GY; J7030

== ENCOUNTER 2020-01-17 00:58 | Day surgery (SDC) | payer MEDICARE, OTHER ==
[~2020-01-17 00:58] MED LIST changes: +HYDR1TAB94 PO; +MINO50 PO
== END 2020-01-17 23:20 | disposition home or self-care (01) ==
LOC: WOUND 00:58
DX: E11.621 Type 2 diabetes mellitus with foot ulcer (principal); L97.502 Non-pressure chronic ulcer of other part of unspecified foot with fat layer exposed; L97.312 Non-pressure chronic ulcer of right ankle with fat layer exposed; E11.22 Type 2 diabetes mellitus with diabetic chronic kidney disease; N18.3 Chronic kidney disease, stage 3 (moderate)
CPT/HCPCS: G0463

== ENCOUNTER 2020-01-24 00:24 | Day surgery (SDC) | payer MEDICARE, OTHER | END 2020-01-24 22:53 | disposition home or self-care (01) | LOC: WOUND 00:24 | DX: E11.621 Type 2 diabetes mellitus with foot ulcer (principal); L97.512 Non-pressure chronic ulcer of other part of right foot with fat layer exposed; E11.52 Type 2 diabetes mellitus with diabetic peripheral angiopathy with gangrene; I96 Gangrene, not elsewhere classified; I12.0 Hypertensive chronic kidney disease with stage 5 chronic kidney disease or end stage renal disease; E11.22 Type 2 diabetes mellitus with diabetic chronic kidney disease; N18.6 End stage renal disease; D63.1 Anemia in chronic kidney disease; E11.69 Type 2 diabetes mellitus with other specified complication; M86.9 Osteomyelitis, unspecified; I48.0 Paroxysmal atrial fibrillation; G47.33 Obstructive sleep apnea (adult) (pediatric); G89.29 Other chronic pain; M54.5 Low back pain; E78.5 Hyperlipidemia, unspecified; F32.9 Major depressive disorder, single episode, unspecified; M19.90 Unspecified osteoarthritis, unspecified site; I25.10 Atherosclerotic heart disease of native coronary artery without angina pectoris; E21.3 Hyperparathyroidism, unspecified; E66.01 Morbid (severe) obesity due to excess calories; Z68.34 Body mass index [BMI] 34.0-34.9, adult; Z86.73 Personal history of transient ischemic attack (TIA), and cerebral infarction without residual deficits; Z87.891 Personal history of nicotine dependence; Z88.0 Allergy status to penicillin; Z88.5 Allergy status to narcotic agent; Z88.8 Allergy status to other drugs, medicaments and biological substances; Z79.01 Long term (current) use of anticoagulants; Z79.4 Long term (current) use of insulin; Z79.51 Long term (current) use of inhaled steroids; Z79.82 Long term (current) use of aspirin; Z79.891 Long term (current) use of opiate analgesic; Z79.899 Other long term (current) drug therapy; Z95.1 Presence of aortocoronary bypass graft; Z99.89 Dependence on other enabling machines and devices ==

== ENCOUNTER 2020-01-31 00:36 | Day surgery (SDC) | payer MEDICARE, OTHER | END 2020-01-31 23:06 | disposition home or self-care (01) | LOC: WOUND 00:36 | DX: E11.621 Type 2 diabetes mellitus with foot ulcer (principal); L97.512 Non-pressure chronic ulcer of other part of right foot with fat layer exposed; E11.52 Type 2 diabetes mellitus with diabetic peripheral angiopathy with gangrene; I96 Gangrene, not elsewhere classified; I12.9 Hypertensive chronic kidney disease with stage 1 through stage 4 chronic kidney disease, or unspecified chronic kidney disease; E11.22 Type 2 diabetes mellitus with diabetic chronic kidney disease; N18.30 Chronic kidney disease, stage 3 unspecified; D63.1 Anemia in chronic kidney disease; E11.69 Type 2 diabetes mellitus with other specified complication; M86.9 Osteomyelitis, unspecified; E11.42 Type 2 diabetes mellitus with diabetic polyneuropathy; E11.319 Type 2 diabetes mellitus with unspecified diabetic retinopathy without macular edema; E21.3 Hyperparathyroidism, unspecified; Z88.0 Allergy status to penicillin; Z88.5 Allergy status to narcotic agent; Z88.8 Allergy status to other drugs, medicaments and biological substances; Z87.891 Personal history of nicotine dependence ==

== ENCOUNTER 2020-02-07 00:28 | Day surgery (SDC) | payer MEDICARE, OTHER | END 2020-02-07 22:47 | disposition home or self-care (01) | LOC: WOUND 00:28 | DX: E11.621 Type 2 diabetes mellitus with foot ulcer (principal); L97.512 Non-pressure chronic ulcer of other part of right foot with fat layer exposed; L97.312 Non-pressure chronic ulcer of right ankle with fat layer exposed; E11.22 Type 2 diabetes mellitus with diabetic chronic kidney disease; I12.9 Hypertensive chronic kidney disease with stage 1 through stage 4 chronic kidney disease, or unspecified chronic kidney disease; N18.30 Chronic kidney disease, stage 3 unspecified; D63.1 Anemia in chronic kidney disease; Z79.01 Long term (current) use of anticoagulants; Z79.4 Long term (current) use of insulin; Z79.899 Other long term (current) drug therapy | CPT/HCPCS: G0463 ==

== ENCOUNTER 2020-02-14 00:37 | Day surgery (SDC) | payer MEDICARE, OTHER | END 2020-02-14 22:42 | disposition home or self-care (01) | LOC: WOUND 00:37 | DX: E11.621 Type 2 diabetes mellitus with foot ulcer (principal); L97.512 Non-pressure chronic ulcer of other part of right foot with fat layer exposed; E11.52 Type 2 diabetes mellitus with diabetic peripheral angiopathy with gangrene; I96 Gangrene, not elsewhere classified; I12.0 Hypertensive chronic kidney disease with stage 5 chronic kidney disease or end stage renal disease; E11.22 Type 2 diabetes mellitus with diabetic chronic kidney disease; N18.6 End stage renal disease; D63.1 Anemia in chronic kidney disease; E11.40 Type 2 diabetes mellitus with diabetic neuropathy, unspecified; E11.69 Type 2 diabetes mellitus with other specified complication; M86.8X9 Other osteomyelitis, unspecified sites; I49.9 Cardiac arrhythmia, unspecified; N25.81 Secondary hyperparathyroidism of renal origin; Z88.0 Allergy status to penicillin; Z88.5 Allergy status to narcotic agent; Z88.8 Allergy status to other drugs, medicaments and biological substances; Z79.4 Long term (current) use of insulin; Z79.01 Long term (current) use of anticoagulants; Z79.82 Long term (current) use of aspirin; Z79.899 Other long term (current) drug therapy | CPT/HCPCS: G0463 ==

== ENCOUNTER 2020-02-28 00:55 | Day surgery (SDC) | payer MEDICARE, OTHER | END 2020-02-28 23:47 | disposition home or self-care (01) | LOC: WOUND 00:55 | DX: E11.621 Type 2 diabetes mellitus with foot ulcer (principal); L97.512 Non-pressure chronic ulcer of other part of right foot with fat layer exposed; E11.52 Type 2 diabetes mellitus with diabetic peripheral angiopathy with gangrene; I96 Gangrene, not elsewhere classified; I12.0 Hypertensive chronic kidney disease with stage 5 chronic kidney disease or end stage renal disease; E11.22 Type 2 diabetes mellitus with diabetic chronic kidney disease; N18.6 End stage renal disease; D63.1 Anemia in chronic kidney disease; N25.81 Secondary hyperparathyroidism of renal origin; I49.9 Cardiac arrhythmia, unspecified; Z88.0 Allergy status to penicillin; Z88.5 Allergy status to narcotic agent; Z88.8 Allergy status to other drugs, medicaments and biological substances; Z79.01 Long term (current) use of anticoagulants; Z79.4 Long term (current) use of insulin; Z79.82 Long term (current) use of aspirin; Z79.899 Other long term (current) drug therapy ==

== ENCOUNTER 2020-03-06 00:36 | Day surgery (SDC) | payer MEDICARE, OTHER ==
[~2020-03-06 00:36] MED LIST changes: -Amiodarone HCl200 MG PO; -LEVSOD100 PO; -Minipress1 MG PO; -Novolog100 UNIT/1 SC; -STIOLTO RESPIMAT4 GM INH; -TOUJEO MAX300 UNIT/1 SC; -TRAZ150T57 PO; -Xyzal5 MG PO
[2020-03-07] MEDS ORDERED: Amiodarone HCl200 MG PO (15:34)
[2020-03-07] MEDS ORDERED: PRAZ2 PO (15:35)
[2020-03-07] MEDS ORDERED: TRULICITY1.5 MG/0.1 SC (15:36)
[2020-03-07] MEDS ORDERED: PROZAC20 M2 PO (15:37)
[2020-03-07] MEDS ORDERED: HUMIRA(CF)40 MG/0.4 SC (15:37)
[2020-03-07] MEDS ORDERED: MODAFINIL PO (15:38)
[2020-03-07] MEDS ORDERED: OTEZLA30 MG PO (15:40)
[2020-03-07] MEDS ORDERED: XARELTO20 MG PO (15:43)
[2020-03-07] MEDS ORDERED: TOUJEO MAX300 UNIT/2 SC (15:44)
[2020-03-07] MEDS ORDERED: PREG100 PO (16:35)
[2020-03-07] MEDS ORDERED: JARDIANCE10 MG PO (16:36)
[2020-03-07] MEDS ORDERED: ATOR40TA PO (16:36)
[2020-03-07] MEDS ORDERED: LEVSOD100 PO (16:37)
[2020-03-07] MEDS ORDERED: NOVOLOG FL100 UNIT/3 SS (16:37)
[2020-03-07] MEDS ORDERED: DOCU100 PO (16:37)
[2020-03-07] MEDS ORDERED: ALBU90OI INH (16:38)
[2020-03-07] MEDS ORDERED: Norco 5-325 Ta1 EACH PO (16:39)
[2020-03-07] MEDS ORDERED: LEVOCETIRIZINE D5 MG PO (16:40)
[2020-03-07] MEDS ORDERED: TRAZ100 PO (16:41)
[2020-03-07] MEDS ORDERED: POTCHL20ER PO (16:42)
[2020-03-07] MEDS ORDERED: Aspir 8181 MG PO (16:43)
[2020-03-07] MEDS ORDERED: TORSE20 PO (16:46)
[2020-03-07] MEDS ORDERED: STIOLTO RESPIMAT4 G1 INH (16:50)
[2020-03-07] MEDS ORDERED: LIDO5TO TOP (16:51)
[2020-03-07] MEDS ORDERED: CLOBEX TOP (16:53)
[2020-03-07] MEDS ORDERED: NEOMYCIN-POLYMY10 ML BOTHEARS (16:56)
== END 2020-03-06 23:21 | disposition home or self-care (01) ==
LOC: WOUND 00:36
DX: E11.621 Type 2 diabetes mellitus with foot ulcer (principal); E11.51 Type 2 diabetes mellitus with diabetic peripheral angiopathy without gangrene; L97.502 Non-pressure chronic ulcer of other part of unspecified foot with fat layer exposed; Z79.4 Long term (current) use of insulin

== ENCOUNTER 2020-03-07 13:31 | Inpatient (IN) | payer OTHER, MEDICARE ==
[~2020-03-07] VITALS: Ht 185.4 cm; Wt 124.3 kg
[2020-03-07 14:21] LABS: BASOPHILS ABSOLUTE AUTO 0.04 K/mm3 (0.00-0.23); BASOPHILS PERCENT AUTO 1 % (0-2); EOSINOPHILS ABSOLUTE AUTO 0.08 K/mm3 (0.00-0.68); EOSINOPHILS PERCENT AUTO 1 % (0-6); Hematocrit 26.4 % (37.0-53.0); Hemoglobin 7.8 g/dL (13.5-17.5); IMMATURE GRAN ABSOLUTE AUTO 0.01 K/mm3 (0.00-0.10); IMMATURE GRAN PERCENT AUTO 0 % (0-1); LYMPHOCYTES ABSOLUTE AUTO 1.09 K/mm3 (0.84-5.20); LYMPHOCYTES PERCENT AUTO 19 % (21-46); MONOCYTES ABSOLUTE AUTO 0.29 K/mm3 (0.16-1.47); MONOCYTES PERCENT AUTO 5 % (4-13); Mean Corpuscular HGB 28.6 pg (26.0-34.0); Mean Corpuscular HGB Conc 29.5 g/dL (31.5-36.5); Mean Corpuscular Volume 97 fL (80-100); Mean Platelet Volume 10.8 fL (9.1-12.4); NEUTROPHILS ABSOLUTE AUTO 4.37 K/mm3 (1.96-9.15); NEUTROPHILS PERCENT AUTO 74 % (41-73); Platelet Count 190 K/mm3 (150-400); RDW Coefficient Variation 16.5 % (11.7-14.2); RDW Standard Deviation 58.9 fL (35.1-46.3); Red Blood Cell Count 2.73 M/mm3 (4.30-5.90); White Blood Cell Count 5.88 K/mm3 (4.00-11.30)
[2020-03-07 15:05] LABS: Alanine Aminotransfer (ALT/SGP 21 U/L (12-78); Albumin, Blood 2.9 g/dL (3.4-5.0); Alk Phos 76 U/L (50-136); Anion Gap 4 mmol/L (6-16); Aspartate Aminotrans (AST/SGOT 16 U/L (12-37); Bilirubin, Total 0.3 mg/dL (0.1-1.0); Blood Urea Nitrogen 24 mg/dL (8-24); Bun/Creatinine Ratio 19.5 (12.0-20.0); CO2, Blood 26 mmol/L (21-32); Calcium, Blood 8.7 mg/dL (8.5-10.1); Chloride, Blood 115 mmol/L (98-108); Creatinine, Blood 1.23 mg/dL (0.60-1.20); Globulin, Blood 2.8 g/dL (2.2-4.0); Glomerular Filtration Rate >60 (60-); Glucose, Blood 163 mg/dL (70-99); Potassium, Blood 4.8 mmol/L (3.5-5.5); Sodium, Blood 145 mmol/L (136-145); Total Protein, Blood 5.7 g/dL (6.4-8.2)
[2020-03-07] MEDS ORDERED: Amiodarone HCl200 MG PO (15:34)
[2020-03-07] MEDS ORDERED: PRAZ2 PO (15:35)
[2020-03-07] MEDS ORDERED: TRULICITY1.5 MG/0.1 SC (15:36)
[2020-03-07] MEDS ORDERED: PROZAC20 M2 PO (15:37)
[2020-03-07] MEDS ORDERED: HUMIRA(CF)40 MG/0.4 SC (15:37)
[2020-03-07] MEDS ORDERED: MODAFINIL PO (15:38)
[2020-03-07] MEDS ORDERED: OTEZLA30 MG PO (15:40)
[2020-03-07] MEDS ORDERED: XARELTO20 MG PO (15:43)
[2020-03-07] MEDS ORDERED: TOUJEO MAX300 UNIT/2 SC (15:44)
[2020-03-07] MEDS ORDERED: PREG100 PO (16:35)
[2020-03-07] MEDS ORDERED: JARDIANCE10 MG PO (16:36)
[2020-03-07] MEDS ORDERED: ATOR40TA PO (16:36)
[2020-03-07] MEDS ORDERED: LEVSOD100 PO (16:37)
[2020-03-07] MEDS ORDERED: DOCU100 PO (16:37)
[2020-03-07] MEDS ORDERED: NOVOLOG FL100 UNIT/3 SS (16:37)
[2020-03-07] MEDS ORDERED: ALBU90OI INH (16:38)
[2020-03-07] MEDS ORDERED: Norco 5-325 Ta1 EACH PO (16:39)
[2020-03-07] MEDS ORDERED: LEVOCETIRIZINE D5 MG PO (16:40)
[2020-03-07] MEDS ORDERED: TRAZ100 PO (16:41)
[2020-03-07] MEDS ORDERED: POTCHL20ER PO (16:42)
[2020-03-07] MEDS ORDERED: Aspir 8181 MG PO (16:43)
[2020-03-07] MEDS ORDERED: TORSE20 PO (16:46)
[2020-03-07] MEDS ORDERED: STIOLTO RESPIMAT4 G1 INH (16:50)
[2020-03-07] MEDS ORDERED: LIDO5TO TOP (16:51)
[2020-03-07] MEDS ORDERED: CLOBEX TOP (16:53)
[2020-03-07] MEDS ORDERED: NEOMYCIN-POLYMY10 ML BOTHEARS (16:56)
--- NOTE | 2020-03-07 18:43 | NUR ---
PATIENT ARRIVED FROM ED THIS HALF OF SHIFT, ABLE TO TRANSFER WITH STANDBY ASSIST FROM GURNEY TO BED, PATIENT ENDORSES FEELING DIZZY. PATIENT HR IN 40S-50S, IN JUNCTIONAL RHYTHYM PER TELE MONITOR REPORT. PATIENT TYPE AND SCREEN DONE, NO ORDERS FOR TRANSFUSION AT THIS TIME. PATIENT'S AT BEDSIDE. DR. HENDERSON CONSULTED, PLAN IS CLEAR LIQUIDS FOR BREAKFAST FOR GI EVAL TOMORROW. PATIENT HAS WOUND ON R FOOT THAT HE SEES THE WOUND CLINIC FOR, DRESSING DUE TO BE CHANGED TOMORROW.
--- NOTE | 2020-03-07 19:30 | NUR ---
ASSUMED CARE OF PATIENT, REPORT RECEIVED FROM SARAH HACKETT. PT SITTING UP IN BED, VISITING WITH WITH. NO ACUTE DISTRESS OBSERVED, DENIES ANY CHEST PAIN.
[2020-03-07 20:03] LABS: Hemoglobin 8.4 g/dL (13.5-17.5)
[2020-03-08 04:18] LABS: BASOPHILS ABSOLUTE AUTO 0.04 K/mm3 (0.00-0.23); BASOPHILS PERCENT AUTO 1 % (0-2); EOSINOPHILS ABSOLUTE AUTO 0.09 K/mm3 (0.00-0.68); EOSINOPHILS PERCENT AUTO 2 % (0-6); Hematocrit 26.3 % (37.0-53.0); Hemoglobin 7.9 g/dL (13.5-17.5); IMMATURE GRAN ABSOLUTE AUTO 0.01 K/mm3 (0.00-0.10); IMMATURE GRAN PERCENT AUTO 0 % (0-1); LYMPHOCYTES ABSOLUTE AUTO 1.79 K/mm3 (0.84-5.20); LYMPHOCYTES PERCENT AUTO 31 % (21-46); MONOCYTES PERCENT AUTO 5 % (4-13); Mean Corpuscular HGB 28.6 pg (26.0-34.0); Mean Corpuscular Volume 95 fL (80-100); Mean Platelet Volume 11.2 fL (9.1-12.4); NEUTROPHILS ABSOLUTE AUTO 3.47 K/mm3 (1.96-9.15); NEUTROPHILS PERCENT AUTO 61 % (41-73); Platelet Count 205 K/mm3 (150-400); RDW Coefficient Variation 16.4 % (11.7-14.2); RDW Standard Deviation 57.8 fL (35.1-46.3); Red Blood Cell Count 2.76 M/mm3 (4.30-5.90)
[2020-03-08 04:38] LABS: Alanine Aminotransfer (ALT/SGP 20 U/L (12-78); Albumin, Blood 2.9 g/dL (3.4-5.0); Alk Phos 69 U/L (50-136); Anion Gap 4 mmol/L (6-16); Aspartate Aminotrans (AST/SGOT 20 U/L (12-37); Bilirubin, Total 0.4 mg/dL (0.1-1.0); Blood Urea Nitrogen 23 mg/dL (8-24); Bun/Creatinine Ratio 18.7 (12.0-20.0); CO2, Blood 27 mmol/L (21-32); Chloride, Blood 114 mmol/L (98-108); Creatinine, Blood 1.23 mg/dL (0.60-1.20); Globulin, Blood 2.8 g/dL (2.2-4.0); Glomerular Filtration Rate >60 (60-); Glucose, Blood 115 mg/dL (70-99); Sodium, Blood 145 mmol/L (136-145); Total Protein, Blood 5.7 g/dL (6.4-8.2)
[2020-03-08 04:48] LABS: Percent Saturation 8.6 % (20.0-50.0)
--- NOTE | 2020-03-08 13:13 | NUR ---
Patient is sitting up in bed and alert. Patient tells me about his medical history and the events that led to his hospitalization and the plans for a procedure today. Patient shows me pictures of his foot wound at several different periods of time. Patient's rm is very busy so my visit is cut short. I normalize patient's experience, reinforce helpful attitudes and practices and provide a calming presence. Patient voices appreciation for the visit.
--- NOTE | 2020-03-08 14:12 | NUR ---
PT TRANSFERED TO [facility]IA [facility] FROM PCU. History, Chart, Medications and Allergies reviewed before start of procedure. Lungs clear T/O to Auscultation. Patient confirms NPO status and agrees with scheduled surgery. Pre-Op teaching done. Pt verbalizes understanding.
--- NOTE | 2020-03-08 14:49 | NUR ---
03/08/20 1449 CHIRAG JENSEN History, Chart, Medications and Allergies reviewed before start of procedure. 3-LEAD EKG REVIEWED WITH PHYSICIAN PRIOR TO START OF PROCEDURE. O2 VIA N/C INTACT THROUGHOUT SEDATION/PROCEDURE. MONITOR INTACT WITH CONTINUOUS PULSE OXIMETRY AND INTERMITTENT BP. MAC WITH DR. LEE.
--- NOTE | 2020-03-08 15:37 | NUR ---
PATIENT RETURNED FROM EGD, VSS, NO SIGNS OF ACUTE DISTRESS. PATIENT ALERT AND ORIENTED, CONVERSING WITH NURSING STAFF. WCTM.
--- NOTE | 2020-03-08 17:51 | NUR ---
NO ACUTE EVENTS THIS SHIFT. PATIENT ON ROOM AIR, VSS. PATIENT WORKED WITH PT/OT, AMBULATED WITH WALKER AROUND ROOM AND TO BATHROOM. PATIENT WENT FOR EGD TODAY, PER DAY SURGERY NURSE REPORT PATIENT HAD ABLASION DONE BY DR. HENDERSON. PATIENT RESTARTED ON ADA DIET, ORDER FOR SOD FERRIC ORDERED AND GIVEN. H&H REMAINS BELOW DESIRED RANGE. NO STOOL TODAY FROM PATIENT, NO ADDITIONAL SIGNS OF BLOOD LOSS. [facility].
[2020-03-09 04:19] LABS: BASOPHILS ABSOLUTE AUTO 0.05 K/mm3 (0.00-0.23); BASOPHILS PERCENT AUTO 1 % (0-2); EOSINOPHILS PERCENT AUTO 2 % (0-6); Hematocrit 26.9 % (37.0-53.0); Hemoglobin 7.9 g/dL (13.5-17.5); IMMATURE GRAN ABSOLUTE AUTO 0.01 K/mm3 (0.00-0.10); IMMATURE GRAN PERCENT AUTO 0 % (0-1); LYMPHOCYTES ABSOLUTE AUTO 1.57 K/mm3 (0.84-5.20); LYMPHOCYTES PERCENT AUTO 26 % (21-46); MONOCYTES ABSOLUTE AUTO 0.38 K/mm3 (0.16-1.47); MONOCYTES PERCENT AUTO 6 % (4-13); Mean Corpuscular HGB 28.2 pg (26.0-34.0); Mean Corpuscular HGB Conc 29.4 g/dL (31.5-36.5); Mean Corpuscular Volume 96 fL (80-100); Mean Platelet Volume 11.1 fL (9.1-12.4); NEUTROPHILS ABSOLUTE AUTO 3.97 K/mm3 (1.96-9.15); NEUTROPHILS PERCENT AUTO 65 % (41-73); Platelet Count 212 K/mm3 (150-400); RDW Coefficient Variation 16.2 % (11.7-14.2); RDW Standard Deviation 57.8 fL (35.1-46.3); White Blood Cell Count 6.08 K/mm3 (4.00-11.30)
[2020-03-09 04:37] LABS: Albumin, Blood 2.8 g/dL (3.4-5.0); Bilirubin, Total 0.2 mg/dL (0.1-1.0); Bun/Creatinine Ratio 14.7 (12.0-20.0); Calcium, Blood 8.7 mg/dL (8.5-10.1); Creatinine, Blood 1.29 mg/dL (0.60-1.20); Globulin, Blood 2.9 g/dL (2.2-4.0); Total Protein, Blood 5.7 g/dL (6.4-8.2)
--- NOTE | 2020-03-09 05:17 | NUR ---
SHIFT SUMMARY PT RESTED THROUGH NIGHT. INITIALLY WAS COMPLAINING OF SOME PAIN IN BLE R/T NEUROPATHY. GAVE PRN PAIN MEDS X1 WITH RELIEF. PT CBG 96 - HELD GLARGINE PER PT REQUEST. CONT PULSE OX ON - SATS >90% ON RA, WEARS HOME CPAP AT HOURS OF SLEEP. TELE NSR. VOIDING TO URINAL. NO BM. NO FURTHER C/O PAIN AFTER INITIAL PAIN. ALERT AND ORIENTED - STATES HE IS FEELING MUCH BETTER. PT DOES ASK THAT IF HE IS TO BE DISCHARGED TODAY, HE WOULD LIKE A LATER DISCHARGE, HIS WILL BE UNAVAILABLE TO PICK HIM UP UNTIL AFTER 3PM. CALL LIGHT WITHIN REACH, BED IN LOWEST POSITION. WILL CONTINUE TO MONITOR.
--- NOTE | 2020-03-09 07:09 | NUR ---
ASSUMED PATIENT CARE. PATIENT RESTING COMFORTABLY IN BED, NO SIGNS OF ACUTE DISTRESS, WCTM.
--- NOTE | 2020-03-09 18:32 | NUR ---
NO ACUTE EVENTS THIS SHIFT. PATIENT RECEIVED X1 RBCs THIS SHIFT, TOLERATED WELL. PATIENT ENDORSED FEELING ANXIOUS THIS SHIFT, NEW ORDER FOR ATIVAN GIVEN FROM DR. RODRIGUEZ. PATIENT'S HOME MED INHALER BROUGHT IN BY THIS SHIFT, SENT TO PHARMACY FOR VERIFICATION. PATIENT HYPERTENSIVE AT TIMES, PRN BP CONTROL MEDS NOT INDICATED PER ORDER PARAMETERS GIVEN. PATIENT REFUSED WORK WITH PT/OT TODAY, THIS RN ENCOURAGED AMBULATION AND PO INTAKE THIS SHIFT. PATIENT DID NOT REQUIRE INSULIN DOSING TODAY PER SLIDING SCALE. NO SIGNS OF DISCHARGE FROM FOOT WOUND.
--- NOTE | 2020-03-10 05:28 | NUR ---
SHIFT SUMMARY PT RESTED COMFORTABLY THROUGH NIGHT. ALERT AND ORIENTED. BLOOD SUGAR 112 - HELD LONG ACTING INSULIN PER PT REQUEST. CPAP AT NIGHT. PT REFUSING TO WEAR THE CONTINUOUS PULSE OX, AND PER DAY RN, REFUSING TO WORK WITH PT WELL. VOIDING TO URINAL - >1000ML. NO BM. MORNING HGB 7.9. ATIVAN X1, PAIN MEDS X1. PLANS TO CHANGE R FOOT WOUND - WILL RELAY TO DAY RN. CALL LIGHT WITHIN REACH, BED IN LOWEST POSITION. WILL CONTINUE TO MONITOR.
--- NOTE | 2020-03-10 07:21 | NUR ---
Bedside report received from ROXANN Holly. The pt awakens easily, vital signs noted stable. He is wearing his home CPAP. RN reports that the continuous oxymetry was often alarming during the night for hypoxia. No oxygen bleed in to pt's home CPAP. When awakened, the hypoxia resolves, I am told in report. The pt eventually refused the continuous oxymetry to be on due to the constant noise and disruption to his sleep. I explained to the patient this morning this morning that the continuous oxymetry is a helpful tool to assess hypoxia which may occur during sleep, particularly due to the pt's anemia at this time. Explained that if oxygen is needed, we will apply it into the CPAP. The pt did not refuse it at this time. He is lying in a darkened room, still wearing the CPAP. was placed on at this time,
[2020-03-10 11:12] LABS: BASOPHILS ABSOLUTE AUTO 0.05 K/mm3 (0.00-0.23); BASOPHILS PERCENT AUTO 1 % (0-2); EOSINOPHILS ABSOLUTE AUTO 0.11 K/mm3 (0.00-0.68); EOSINOPHILS PERCENT AUTO 2 % (0-6); Hemoglobin 10.8 g/dL (13.5-17.5); IMMATURE GRAN ABSOLUTE AUTO 0.02 K/mm3 (0.00-0.10); IMMATURE GRAN PERCENT AUTO 0 % (0-1); LYMPHOCYTES ABSOLUTE AUTO 1.39 K/mm3 (0.84-5.20); LYMPHOCYTES PERCENT AUTO 19 % (21-46); MONOCYTES PERCENT AUTO 7 % (4-13); Mean Corpuscular HGB 28.8 pg (26.0-34.0); Mean Corpuscular HGB Conc 30.9 g/dL (31.5-36.5); Mean Corpuscular Volume 93 fL (80-100); NEUTROPHILS ABSOLUTE AUTO 5.23 K/mm3 (1.96-9.15); NEUTROPHILS PERCENT AUTO 72 % (41-73); RDW Coefficient Variation 16.6 % (11.7-14.2); RDW Standard Deviation 56.7 fL (35.1-46.3); Red Blood Cell Count 3.75 M/mm3 (4.30-5.90)
[2020-03-10 11:15] LABS: Mean Platelet Volume 11.5 fL (9.1-12.4); Platelet Count 204 K/mm3 (150-400)
--- NOTE | 2020-03-10 14:06 | NUR ---
Call from Dr. Valdez to confirm pt's home medications.
[2020-03-10] MEDS ORDERED: LORA.5 PO (15:10)
--- NOTE | 2020-03-10 15:32 | NUR ---
The pt has had been alert, oriented, and cooperative today. STates had a normal bowel movement this morning. Good appetite. Follow up labs were much improved this afternoon. Wound care dressing change on lateral side of right foot completed this morning. states he will be back at the wound clinic on Friday, and to see Dr. Jolly for a revascularization procedure. He is happy to be going home today. Spoke with Jhon Murillo regarding the possible desaturization of oxygen levels, and the pt's home CPAP machine is the type which automatically increases pressures if needed to respond to the pt's apnea. The pt was monitored today twice while napping, and noted that his hypoxemic episodes were to 86%, and very short lived as the machine was responding and brought his levels back up again quickly. Discharge instructions were reviewed with the patient and his . IV was removed, and his was assisting him with dressing. She will be driving him home, she said.
--- NOTE | 2020-03-10 19:33 | NUR ---
Pt was called and notified that he needs to take Ferrous Sulfate 325mg twice daily. Offered to call in Rx. Pt Lucy stated that she had just picked up some Iron at the [facility] and read it off over the phone to me. It was Ferrous 325mg tablets. Informed her and pt that he needs to take one tablet twice a day. Stated understanding. Denies questions.
[2020-03-11] MEDS ORDERED: Miralax17 GM PO (21:14)
[2020-03-15] MEDS ORDERED: XARELTO20 MG PO (15:56)
[2020-03-15] MEDS ORDERED: NYSTOP15 GM TOP (15:57)
[2020-03-15] MEDS ORDERED: MIRALAX17 GM PO (15:57)
[2020-03-15] MEDS ORDERED: TRAZ50 PO (15:58)
[2020-03-15] MEDS ORDERED: NOVOLOG FL100 UNIT/3 SC (15:59)
[2020-03-15] MEDS ORDERED: APREMILAST PO (15:59)
[2020-03-15] MEDS ORDERED: Nitrostat0.3 MG SL (16:01)
[2020-03-15] MEDS ORDERED: DOXY100 PO (16:02)
== END 2020-03-10 15:45 | disposition home health service (06) | DRG 378 ==
LOC: ER 13:31 → PCU 15:28
PROVIDERS: Emergency Medicine; Internal Medicine; Internal Medicine Gastroenterology; ADMIT Student in an Organized Health Care Education/Training Program
PROC: 0W3P8ZZ Control Bleeding in Gastrointestinal Tract, Via Natural or Artificial Opening Endoscopic (ICD-10-PCS; principal; 2020-03-08 14:30)
DX: K31.811 Angiodysplasia of stomach and duodenum with bleeding (principal); D62 Acute posthemorrhagic anemia; E66.2 Morbid (severe) obesity with alveolar hypoventilation; Z86.73 Personal history of transient ischemic attack (TIA), and cerebral infarction without residual deficits; Z79.4 Long term (current) use of insulin; Z95.1 Presence of aortocoronary bypass graft; I35.0 Nonrheumatic aortic (valve) stenosis; N18.30 Chronic kidney disease, stage 3 unspecified; E03.9 Hypothyroidism, unspecified; E78.5 Hyperlipidemia, unspecified; I48.0 Paroxysmal atrial fibrillation; I12.9 Hypertensive chronic kidney disease with stage 1 through stage 4 chronic kidney disease, or unspecified chronic kidney disease; K44.9 Diaphragmatic hernia without obstruction or gangrene; I25.10 Atherosclerotic heart disease of native coronary artery without angina pectoris; E11.51 Type 2 diabetes mellitus with diabetic peripheral angiopathy without gangrene; J44.9 Chronic obstructive pulmonary disease, unspecified; Z79.01 Long term (current) use of anticoagulants; Z68.36 Body mass index [BMI] 36.0-36.9, adult; Z87.891 Personal history of nicotine dependence
CPT/HCPCS: 36415; 36430; 70450; 80053; 82728; 82947; 83540; 83550; 84484; 85014; 85018; 85025; 86850; 86900; 86901; 86923; 93005; 93010; 94640; 94762; 97110; 97116; 97162; 97165; 97530; 99285-25; A9270-GY; J2405; J2704; J2916; J7120; P9016; U0004

== ENCOUNTER 2020-03-11 17:57 | Emergency (ER) | payer OTHER, MEDICARE ==
[~2020-03-11] VITALS: Ht 185.4 cm; Wt 124.3 kg
[~2020-03-11 17:57] MED LIST changes: +Amiodarone HCl200 MG PO; +CLOBEX TOP; +HUMIRA(CF)40 MG/0.4 SC; +LEVOCETIRIZINE D5 MG PO; +LEVSOD100 PO; +LIDO5TO TOP; +LORA.5 PO; +MODAFINIL PO; +NEOMYCIN-POLYMY10 ML BOTHEARS; +NOVOLOG FL100 UNIT/3 SS; +OTEZLA30 MG PO; +PRAZ2 PO; +PREG100 PO; +PROZAC20 M2 PO; +STIOLTO RESPIMAT4 G1 INH; +TOUJEO MAX300 UNIT/2 SC; +TRAZ100 PO; +TRULICITY1.5 MG/0.1 SC
[2020-03-11 18:51] LABS: BASOPHILS ABSOLUTE AUTO 0.03 K/mm3 (0.00-0.23); BASOPHILS PERCENT AUTO 0 % (0-2); EOSINOPHILS ABSOLUTE AUTO 0.05 K/mm3 (0.00-0.68); EOSINOPHILS PERCENT AUTO 1 % (0-6); Hematocrit 34.4 % (37.0-53.0); Hemoglobin 10.1 g/dL (13.5-17.5); IMMATURE GRAN ABSOLUTE AUTO 0.06 K/mm3 (0.00-0.10); IMMATURE GRAN PERCENT AUTO 1 % (0-1); LYMPHOCYTES ABSOLUTE AUTO 0.89 K/mm3 (0.84-5.20); LYMPHOCYTES PERCENT AUTO 10 % (21-46); MONOCYTES ABSOLUTE AUTO 0.55 K/mm3 (0.16-1.47); MONOCYTES PERCENT AUTO 6 % (4-13); Mean Corpuscular HGB 28.6 pg (26.0-34.0); Mean Corpuscular HGB Conc 29.4 g/dL (31.5-36.5); NEUTROPHILS ABSOLUTE AUTO 7.07 K/mm3 (1.96-9.15); NEUTROPHILS PERCENT AUTO 82 % (41-73); Platelet Count 226 K/mm3 (150-400); RDW Coefficient Variation 16.9 % (11.7-14.2); RDW Standard Deviation 59.9 fL (35.1-46.3); Red Blood Cell Count 3.53 M/mm3 (4.30-5.90); White Blood Cell Count 8.65 K/mm3 (4.00-11.30)
[2020-03-11 19:03] LABS: Mean Corpuscular Volume 98 fL (80-100)
[2020-03-11 19:05] LABS: International Normalized Ratio 1.01; Prothrombin Time Results 10.8 Sec (9.7-11.5)
[2020-03-11 19:15] LABS: Alanine Aminotransfer (ALT/SGP 21 U/L (12-78); Albumin, Blood 3.2 g/dL (3.4-5.0); Alk Phos 98 U/L (50-136); Anion Gap 3 mmol/L (6-16); Aspartate Aminotrans (AST/SGOT 16 U/L (12-37); Bilirubin, Total 0.3 mg/dL (0.1-1.0); Blood Urea Nitrogen 23 mg/dL (8-24); Bun/Creatinine Ratio 15.9 (12.0-20.0); CO2, Blood 29 mmol/L (21-32); Calcium, Blood 9.2 mg/dL (8.5-10.1); Chloride, Blood 114 mmol/L (98-108); Creatinine, Blood 1.45 mg/dL (0.60-1.20); Globulin, Blood 3.3 g/dL (2.2-4.0); Glomerular Filtration Rate 50 (60-); Glucose, Blood 197 mg/dL (70-99); Potassium, Blood 4.3 mmol/L (3.5-5.5); Sodium, Blood 146 mmol/L (136-145); Total Protein, Blood 6.5 g/dL (6.4-8.2); Troponin I <0.015 ng/mL (0.000-0.040)
[2020-03-11] MEDS ORDERED: Miralax17 GM PO (21:14)
[2020-03-15] MEDS ORDERED: XARELTO20 MG PO (15:56)
[2020-03-15] MEDS ORDERED: NYSTOP15 GM TOP (15:57)
[2020-03-15] MEDS ORDERED: MIRALAX17 GM PO (15:57)
[2020-03-15] MEDS ORDERED: TRAZ50 PO (15:58)
[2020-03-15] MEDS ORDERED: APREMILAST PO (15:59)
[2020-03-15] MEDS ORDERED: NOVOLOG FL100 UNIT/3 SC (15:59)
[2020-03-15] MEDS ORDERED: Nitrostat0.3 MG SL (16:01)
[2020-03-15] MEDS ORDERED: DOXY100 PO (16:02)
== END 2020-03-11 21:53 | disposition home or self-care (01) ==
LOC: ER 17:57
PROVIDERS: Physician Assistant
DX: D64.9 Anemia, unspecified (principal); Z79.4 Long term (current) use of insulin; Z79.82 Long term (current) use of aspirin; Z79.899 Other long term (current) drug therapy
CPT/HCPCS: 80053; 84484; 85025; 85610; 86850; 86900; 86901; 93005; 93010; 96360; 96361; 99285-25; J7030

== ENCOUNTER 2020-03-13 01:09 | Day surgery (SDC) | payer OTHER, MEDICARE ==
[~2020-03-13 01:09] MED LIST changes: +Miralax17 GM PO
[2020-03-15] MEDS ORDERED: XARELTO20 MG PO (15:56)
[2020-03-15] MEDS ORDERED: NYSTOP15 GM TOP (15:57)
[2020-03-15] MEDS ORDERED: MIRALAX17 GM PO (15:57)
[2020-03-15] MEDS ORDERED: TRAZ50 PO (15:58)
[2020-03-15] MEDS ORDERED: NOVOLOG FL100 UNIT/3 SC (15:59)
[2020-03-15] MEDS ORDERED: APREMILAST PO (15:59)
[2020-03-15] MEDS ORDERED: Nitrostat0.3 MG SL (16:01)
[2020-03-15] MEDS ORDERED: DOXY100 PO (16:02)
== END 2020-03-13 23:10 | disposition home or self-care (01) ==
LOC: WOUND 01:09
DX: E11.621 Type 2 diabetes mellitus with foot ulcer (principal); E11.51 Type 2 diabetes mellitus with diabetic peripheral angiopathy without gangrene; L97.512 Non-pressure chronic ulcer of other part of right foot with fat layer exposed; E11.22 Type 2 diabetes mellitus with diabetic chronic kidney disease; I12.9 Hypertensive chronic kidney disease with stage 1 through stage 4 chronic kidney disease, or unspecified chronic kidney disease; N18.30 Chronic kidney disease, stage 3 unspecified; E11.40 Type 2 diabetes mellitus with diabetic neuropathy, unspecified; Z79.4 Long term (current) use of insulin; Z87.891 Personal history of nicotine dependence; Z79.899 Other long term (current) drug therapy
CPT/HCPCS: G0463

== ENCOUNTER 2020-03-16 06:12 | Day surgery (SDC) | payer MEDICARE, OTHER ==
[~2020-03-16] VITALS: Ht 182.9 cm; Wt 125.0 kg
[~2020-03-16 06:12] MED LIST changes: +APREMILAST PO; +DOXY100 PO; +MIRALAX17 GM PO; +NOVOLOG FL100 UNIT/3 SC; +NYSTOP15 GM TOP; +Nitrostat0.3 MG SL
[2020-03-16] MEDS ORDERED: ELIQUIS5 M2 PO (11:25)
--- NOTE | 2020-03-16 12:49 | NUR ---
DISCHARGE PT REMAINED A&OX3 AND DENIED ANY PAIN DURING RECOVERY. LEFT GROIN SITE REMAINS CDI/NO HEMATOMA NOTED. IV DC'D WITH CANULA INTACT. PT ABLE TO DRESS WITH HELP FROM SPOUSE. DISCHARGE PAPERWORK GONE OVER WITH PT AND SPOUSE. PT AND SPOUSE VERBALLY STATED THE UNDERSTANDING OF THE DISCHARGE PAPERWORK AND DENIED ANY QUESTIONS ABOUT THE EDUCATION. PRESCRIPTIONS CALLED INTO [facility] ON [address]. PT WHEELED OUT BY CHARU Zaman RN.
== END 2020-03-16 12:00 | disposition home or self-care (01) ==
LOC: MHTC 06:12
DX: E11.51 Type 2 diabetes mellitus with diabetic peripheral angiopathy without gangrene (principal); I70.213 Atherosclerosis of native arteries of extremities with intermittent claudication, bilateral legs; E11.621 Type 2 diabetes mellitus with foot ulcer; L97.419 Non-pressure chronic ulcer of right heel and midfoot with unspecified severity; I70.234 Atherosclerosis of native arteries of right leg with ulceration of heel and midfoot; I25.10 Atherosclerotic heart disease of native coronary artery without angina pectoris; I10 Essential (primary) hypertension; E78.5 Hyperlipidemia, unspecified; I48.0 Paroxysmal atrial fibrillation; G47.33 Obstructive sleep apnea (adult) (pediatric); E11.40 Type 2 diabetes mellitus with diabetic neuropathy, unspecified; G89.29 Other chronic pain; M54.5 Low back pain; F32.9 Major depressive disorder, single episode, unspecified; E66.01 Morbid (severe) obesity due to excess calories; Z68.37 Body mass index [BMI] 37.0-37.9, adult; Z86.73 Personal history of transient ischemic attack (TIA), and cerebral infarction without residual deficits; Z95.1 Presence of aortocoronary bypass graft; Z87.891 Personal history of nicotine dependence; Z88.0 Allergy status to penicillin; Z88.5 Allergy status to narcotic agent; Z88.8 Allergy status to other drugs, medicaments and biological substances; Z91.030 Bee allergy status; Z79.01 Long term (current) use of anticoagulants; Z79.4 Long term (current) use of insulin; Z79.899 Other long term (current) drug therapy
CPT/HCPCS: 82947; 85347; 99152; 99153; C1725; C1760; C1769; C1874; C1885; C1887; C1894; J1644; J2250; J3010; J7030; J7042; Q9967

== ENCOUNTER 2020-03-20 02:10 | Day surgery (SDC) | payer OTHER, MEDICARE ==
[~2020-03-20 02:10] MED LIST changes: +ELIQUIS5 M2 PO
== END 2020-03-20 23:19 | disposition home or self-care (01) ==
LOC: WOUND 02:10
DX: E11.621 Type 2 diabetes mellitus with foot ulcer (principal); L97.512 Non-pressure chronic ulcer of other part of right foot with fat layer exposed; E11.52 Type 2 diabetes mellitus with diabetic peripheral angiopathy with gangrene; I96 Gangrene, not elsewhere classified; E11.40 Type 2 diabetes mellitus with diabetic neuropathy, unspecified; E11.69 Type 2 diabetes mellitus with other specified complication; M86.8X9 Other osteomyelitis, unspecified sites; I12.0 Hypertensive chronic kidney disease with stage 5 chronic kidney disease or end stage renal disease; E11.22 Type 2 diabetes mellitus with diabetic chronic kidney disease; N18.6 End stage renal disease; D63.1 Anemia in chronic kidney disease; N25.81 Secondary hyperparathyroidism of renal origin; Z88.0 Allergy status to penicillin; Z88.8 Allergy status to other drugs, medicaments and biological substances; Z79.82 Long term (current) use of aspirin; Z79.4 Long term (current) use of insulin; Z79.01 Long term (current) use of anticoagulants; Z79.899 Other long term (current) drug therapy

== ENCOUNTER 2020-04-03 00:21 | Day surgery (SDC) | payer MEDICARE, OTHER | END 2020-04-03 22:55 | disposition home or self-care (01) | LOC: WOUND 00:21 | DX: E11.621 Type 2 diabetes mellitus with foot ulcer (principal); L97.502 Non-pressure chronic ulcer of other part of unspecified foot with fat layer exposed; E11.51 Type 2 diabetes mellitus with diabetic peripheral angiopathy without gangrene; I12.9 Hypertensive chronic kidney disease with stage 1 through stage 4 chronic kidney disease, or unspecified chronic kidney disease; E11.22 Type 2 diabetes mellitus with diabetic chronic kidney disease; N18.30 Chronic kidney disease, stage 3 unspecified; Z79.899 Other long term (current) drug therapy; Z79.4 Long term (current) use of insulin | CPT/HCPCS: G0463 ==

== ENCOUNTER 2020-04-10 14:24 | Emergency (ER) | payer MEDICARE, OTHER ==
[~2020-04-10] VITALS: Ht 185.4 cm; Wt 122.5 kg
[2020-04-10 16:24] LABS: BASOPHILS ABSOLUTE AUTO 0.04 K/mm3 (0.00-0.23); BASOPHILS PERCENT AUTO 0 % (0-2); EOSINOPHILS ABSOLUTE AUTO 0.21 K/mm3 (0.00-0.68); EOSINOPHILS PERCENT AUTO 2 % (0-6); Hematocrit 40.3 % (37.0-53.0); Hemoglobin 12.2 g/dL (13.5-17.5); IMMATURE GRAN ABSOLUTE AUTO 0.05 K/mm3 (0.00-0.10); IMMATURE GRAN PERCENT AUTO 1 % (0-1); LYMPHOCYTES ABSOLUTE AUTO 0.89 K/mm3 (0.84-5.20); LYMPHOCYTES PERCENT AUTO 10 % (21-46); MONOCYTES ABSOLUTE AUTO 0.54 K/mm3 (0.16-1.47); MONOCYTES PERCENT AUTO 6 % (4-13); Mean Corpuscular HGB 29.3 pg (26.0-34.0); Mean Corpuscular HGB Conc 30.3 g/dL (31.5-36.5); Mean Corpuscular Volume 97 fL (80-100); Mean Platelet Volume 12.1 fL (9.1-12.4); NEUTROPHILS ABSOLUTE AUTO 7.64 K/mm3 (1.96-9.15); NEUTROPHILS PERCENT AUTO 82 % (41-73); Platelet Count 169 K/mm3 (150-400); RDW Coefficient Variation 16.1 % (11.7-14.2); RDW Standard Deviation 58.5 fL (35.1-46.3); Red Blood Cell Count 4.17 M/mm3 (4.30-5.90); White Blood Cell Count 9.37 K/mm3 (4.00-11.30)
[2020-04-10 16:41] LABS: Alanine Aminotransfer (ALT/SGP 40 U/L (12-78); Albumin/Globulin Ratio 0.8 (0.8-1.8); Alk Phos 102 U/L (50-136); Anion Gap 7 mmol/L (6-16); Aspartate Aminotrans (AST/SGOT 35 U/L (12-37); Bilirubin, Total 0.8 mg/dL (0.1-1.0); Blood Urea Nitrogen 18 mg/dL (8-24); CO2, Blood 25 mmol/L (21-32); Calcium, Blood 8.9 mg/dL (8.5-10.1); Chloride, Blood 109 mmol/L (98-108); Globulin, Blood 3.7 g/dL (2.2-4.0); Glomerular Filtration Rate >60 (60-); Glucose, Blood 158 mg/dL (70-99); Potassium, Blood 4.4 mmol/L (3.5-5.5); Sodium, Blood 141 mmol/L (136-145); Total Protein, Blood 6.7 g/dL (6.4-8.2)
[2020-04-10 18:45] LABS: Source, Urine Clean Catch
[2020-04-10 18:51] LABS: Appearance, Urine Clear (Clear); Bilirubin, Urine Neg (Neg); Blood, Urine Neg (Neg); Color, Urine Yellow (P-Yellow); Glucose Qualitative, Urine 4+ (Neg); Ketones, Urine 1+ (Neg); Leukocyte Esterase, Urine Neg (Neg); Nitrite, Urine Neg (Neg); Protein, Urine 1+ (Neg); Urobilinogen, Urine NORM (Normal)
== END 2020-04-10 19:55 | disposition home or self-care (01) ==
LOC: ER 14:24
PROVIDERS: Emergency Medicine
DX: M25.551 Pain in right hip (principal); M25.511 Pain in right shoulder; R55 Syncope and collapse; E11.22 Type 2 diabetes mellitus with diabetic chronic kidney disease; N18.30 Chronic kidney disease, stage 3 unspecified; I48.0 Paroxysmal atrial fibrillation; I25.10 Atherosclerotic heart disease of native coronary artery without angina pectoris; J44.9 Chronic obstructive pulmonary disease, unspecified; E11.51 Type 2 diabetes mellitus with diabetic peripheral angiopathy without gangrene; E03.9 Hypothyroidism, unspecified; E78.5 Hyperlipidemia, unspecified; Z79.01 Long term (current) use of anticoagulants; Z79.82 Long term (current) use of aspirin; Z79.4 Long term (current) use of insulin; Z79.899 Other long term (current) drug therapy; Z88.8 Allergy status to other drugs, medicaments and biological substances; Z88.0 Allergy status to penicillin; Z86.73 Personal history of transient ischemic attack (TIA), and cerebral infarction without residual deficits; Z87.891 Personal history of nicotine dependence; W18.30XA Fall on same level, unspecified, initial encounter
CPT/HCPCS: 36415; 51701; 70450; 72125; 73030; 73502; 74177; 80053; 85025; 93005; 93010; 96374-59; 96375-59; 99285-25; J1170; J2270; J2405; Q9967

== ENCOUNTER 2020-05-18 09:56 | Day surgery (SDC) | payer MEDICARE, OTHER ==
[~2020-05-18] VITALS: Ht 185.4 cm; Wt 120.0 kg
--- NOTE | 2020-05-18 16:32 | NUR ---
PT UP AND DRESSED WITH ASSIST. VOIDED 400 ML'S CLEAR YELLOW URINE. R FEM SITE STABLE. SALINE LOCK REMOVED WITH CATHETER INTACT. DISCHARGE GONE OVER WITH AND PT, BOTH VERBALIZE UNDERSTANING OF INSTRUCTIONS. PT TO PRIVATE VEHICLE PER W/C WITH ONE STAFF.
[2020-06-01] MEDS ORDERED: XARELTO20 MG PO (13:28)
== END 2020-05-18 16:00 | disposition home or self-care (01) ==
LOC: MHTC 09:56
DX: E11.51 Type 2 diabetes mellitus with diabetic peripheral angiopathy without gangrene (principal); L97.929 Non-pressure chronic ulcer of unspecified part of left lower leg with unspecified severity; L97.919 Non-pressure chronic ulcer of unspecified part of right lower leg with unspecified severity; I70.249 Atherosclerosis of native arteries of left leg with ulceration of unspecified site; I70.239 Atherosclerosis of native arteries of right leg with ulceration of unspecified site; I11.0 Hypertensive heart disease with heart failure; I50.9 Heart failure, unspecified; G47.30 Sleep apnea, unspecified; Z88.5 Allergy status to narcotic agent; Z88.0 Allergy status to penicillin; Z88.8 Allergy status to other drugs, medicaments and biological substances; Z79.82 Long term (current) use of aspirin; Z79.01 Long term (current) use of anticoagulants; Z79.4 Long term (current) use of insulin
CPT/HCPCS: 37224; 37229; 37232; 75716; 75774; 85347; 99152; 99153; C1714; C1725; C1760; C1769; C1887; C1894; C2623; J1644; J2250; J2405; J3010; J7030; J7050; Q9967

== ENCOUNTER 2020-06-09 10:48 | Day surgery (SDC) | payer MEDICARE, OTHER ==
[~2020-06-09] VITALS: Ht 185.4 cm; Wt 117.8 kg
== END 2020-06-09 12:51 | disposition home or self-care (01) ==
LOC: ORSCSDS 10:48
PROVIDERS: Internal Medicine Gastroenterology
PROC: 0DJD8ZZ Inspection of Lower Intestinal Tract, Via Natural or Artificial Opening Endoscopic (ICD-10-PCS; principal; 2020-06-09 12:00)
DX: D50.0 Iron deficiency anemia secondary to blood loss (chronic) (principal); G47.33 Obstructive sleep apnea (adult) (pediatric); E66.01 Morbid (severe) obesity due to excess calories; Z68.34 Body mass index [BMI] 34.0-34.9, adult; I48.91 Unspecified atrial fibrillation; I25.10 Atherosclerotic heart disease of native coronary artery without angina pectoris; J44.9 Chronic obstructive pulmonary disease, unspecified; I49.9 Cardiac arrhythmia, unspecified; N18.30 Chronic kidney disease, stage 3 unspecified; K21.9 Gastro-esophageal reflux disease without esophagitis; Z86.73 Personal history of transient ischemic attack (TIA), and cerebral infarction without residual deficits; E78.5 Hyperlipidemia, unspecified; I48.0 Paroxysmal atrial fibrillation; Z79.4 Long term (current) use of insulin; Z79.01 Long term (current) use of anticoagulants; Z79.82 Long term (current) use of aspirin; Z79.899 Other long term (current) drug therapy
CPT/HCPCS: 82947; J2704; J7120

== ENCOUNTER 2020-06-14 11:30 | Day surgery (SDC) | payer MEDICARE, OTHER ==
[~2020-06-14] VITALS: Ht 185.4 cm; Wt 119.8 kg
--- NOTE | 2020-06-14 13:13 | NUR ---
06/14/20 1313 JOLENE DICKSON PROCEDURE COMPLETED BY DR. LEE AFTER INFORMED CONSENT WAS OBTAINED, PATIENT VS REMAIN STABLE, PER DR. LEE ANATOMY OF THE PATIENT MADE THE NEEDLE PLACEMENT CHALLENGING HOWEVER PLACEMENT WAS SUCCESSFUL AND THE PATIENT TOLERATERD THE PROCEDURE WELL, DISCHARGE INSTRUCTIONS PROVIDED
== END 2020-06-14 12:56 | disposition home or self-care (01) ==
LOC: ORSCSDS 11:30
PROVIDERS: Anesthesiology
PROC: 3E0R33Z Introduction of Anti-inflammatory into Spinal Canal, Percutaneous Approach (ICD-10-PCS; principal; 2020-06-14 12:30)
DX: M51.16 Intervertebral disc disorders with radiculopathy, lumbar region (principal); I10 Essential (primary) hypertension; M54.5 Low back pain; I48.91 Unspecified atrial fibrillation; K21.9 Gastro-esophageal reflux disease without esophagitis; E11.9 Type 2 diabetes mellitus without complications; I25.10 Atherosclerotic heart disease of native coronary artery without angina pectoris; E66.01 Morbid (severe) obesity due to excess calories; Z68.35 Body mass index [BMI] 35.0-35.9, adult; Z79.01 Long term (current) use of anticoagulants; Z79.899 Other long term (current) drug therapy
CPT/HCPCS: J1040

== ENCOUNTER 2020-07-08 17:11 | Emergency (ER) | payer MEDICARE, OTHER ==
[~2020-07-08] VITALS: Ht 185.4 cm; Wt 120.2 kg
[2020-07-08] MEDS ORDERED: ELIQUIS5 MG PO (17:54)
[2020-07-08] MEDS ORDERED: Prozac20 MG PO (17:55)
[2020-07-08] MEDS ORDERED: HUMIRA PEN40 MG/0.2 IM (17:57)
[2020-07-08] MEDS ORDERED: FERSU300 PO (17:59)
[2020-07-08] MEDS ORDERED: STRIVERDI RESPIM4 G1 INH (18:00)
[2020-07-08] MEDS ORDERED: CEFD300 PO (18:37)
== END 2020-07-08 20:10 | disposition home or self-care (01) ==
LOC: ER 17:11
DX: T83.84XA Pain due to genitourinary prosthetic devices, implants and grafts, initial encounter (principal); J44.9 Chronic obstructive pulmonary disease, unspecified; E03.9 Hypothyroidism, unspecified; E11.22 Type 2 diabetes mellitus with diabetic chronic kidney disease; N18.30 Chronic kidney disease, stage 3 unspecified; I48.0 Paroxysmal atrial fibrillation; Z88.0 Allergy status to penicillin; Z88.4 Allergy status to anesthetic agent; Z88.5 Allergy status to narcotic agent; I25.810 Atherosclerosis of coronary artery bypass graft(s) without angina pectoris; Z95.1 Presence of aortocoronary bypass graft
CPT/HCPCS: 99283-25; J7030

== ENCOUNTER 2020-07-28 00:38 | Day surgery (SDC) | payer OTHER, MEDICARE ==
[~2020-07-28 00:38] MED LIST changes: +ELIQUIS5 MG PO; +FERSU300 PO; +HUMIRA PEN40 MG/0.2 IM; +Prozac20 MG PO; +STRIVERDI RESPIM4 G1 INH
== END 2020-07-28 22:49 | disposition home or self-care (01) ==
LOC: WOUND 00:38
DX: E11.621 Type 2 diabetes mellitus with foot ulcer (principal); L97.422 Non-pressure chronic ulcer of left heel and midfoot with fat layer exposed; L97.529 Non-pressure chronic ulcer of other part of left foot with unspecified severity; E11.51 Type 2 diabetes mellitus with diabetic peripheral angiopathy without gangrene; I73.9 Peripheral vascular disease, unspecified; Z88.0 Allergy status to penicillin; Z88.5 Allergy status to narcotic agent; Z87.891 Personal history of nicotine dependence
CPT/HCPCS: A9270; G0463

== ENCOUNTER 2020-08-04 00:33 | Day surgery (SDC) | payer MEDICARE, OTHER | END 2020-08-04 22:57 | disposition home or self-care (01) | LOC: WOUND 00:33 | DX: E11.621 Type 2 diabetes mellitus with foot ulcer (principal); L97.422 Non-pressure chronic ulcer of left heel and midfoot with fat layer exposed; L97.528 Non-pressure chronic ulcer of other part of left foot with other specified severity; L89.622 Pressure ulcer of left heel, stage 2; I73.9 Peripheral vascular disease, unspecified; S90.822D Blister (nonthermal), left foot, subsequent encounter; X58.XXXD Exposure to other specified factors, subsequent encounter | CPT/HCPCS: 87071; 87075; 87077; 87186; 87205; A9270 ==

== ENCOUNTER 2020-08-08 01:33 | Day surgery (SDC) | payer MEDICARE, OTHER | END 2020-08-08 23:15 | disposition home or self-care (01) | LOC: WOUND 01:33 | DX: E11.621 Type 2 diabetes mellitus with foot ulcer (principal); L97.422 Non-pressure chronic ulcer of left heel and midfoot with fat layer exposed; L97.522 Non-pressure chronic ulcer of other part of left foot with fat layer exposed; L89.622 Pressure ulcer of left heel, stage 2; S90.822D Blister (nonthermal), left foot, subsequent encounter; X58.XXXD Exposure to other specified factors, subsequent encounter; I73.9 Peripheral vascular disease, unspecified | CPT/HCPCS: A9270 ==

== ENCOUNTER 2020-09-01 02:05 | Day surgery (SDC) | payer OTHER, MEDICARE | END 2020-09-01 23:09 | disposition home or self-care (01) | LOC: WOUND 02:05 | DX: E11.621 Type 2 diabetes mellitus with foot ulcer (principal); L97.422 Non-pressure chronic ulcer of left heel and midfoot with fat layer exposed; L89.622 Pressure ulcer of left heel, stage 2; S90.822D Blister (nonthermal), left foot, subsequent encounter; X58.XXXD Exposure to other specified factors, subsequent encounter; I73.9 Peripheral vascular disease, unspecified | CPT/HCPCS: A9270 ==

== ENCOUNTER 2020-09-08 00:44 | Day surgery (SDC) | payer OTHER, MEDICARE | END 2020-09-08 23:06 | disposition home or self-care (01) | LOC: WOUND 00:44 | DX: E11.621 Type 2 diabetes mellitus with foot ulcer (principal); L97.422 Non-pressure chronic ulcer of left heel and midfoot with fat layer exposed; L97.522 Non-pressure chronic ulcer of other part of left foot with fat layer exposed; L89.622 Pressure ulcer of left heel, stage 2; S90.822D Blister (nonthermal), left foot, subsequent encounter; X58.XXXD Exposure to other specified factors, subsequent encounter; I73.9 Peripheral vascular disease, unspecified | CPT/HCPCS: A9270 ==

== ENCOUNTER 2020-09-15 00:24 | Day surgery (SDC) | payer OTHER, MEDICARE | END 2020-09-15 22:41 | disposition home or self-care (01) | LOC: WOUND 00:24 | DX: E11.621 Type 2 diabetes mellitus with foot ulcer (principal); L97.422 Non-pressure chronic ulcer of left heel and midfoot with fat layer exposed; L97.522 Non-pressure chronic ulcer of other part of left foot with fat layer exposed; L89.622 Pressure ulcer of left heel, stage 2; S90.822D Blister (nonthermal), left foot, subsequent encounter; X58.XXXD Exposure to other specified factors, subsequent encounter; I73.9 Peripheral vascular disease, unspecified | CPT/HCPCS: A9270 ==

== ENCOUNTER 2020-09-18 07:50 | Day surgery (SDC) | payer OTHER | END 2020-09-18 23:01 | disposition home or self-care (01) | LOC: HBO 07:50 | DX: L89.622 Pressure ulcer of left heel, stage 2 (principal); E11.621 Type 2 diabetes mellitus with foot ulcer; L97.509 Non-pressure chronic ulcer of other part of unspecified foot with unspecified severity; S90.822D Blister (nonthermal), left foot, subsequent encounter; X58.XXXD Exposure to other specified factors, subsequent encounter; I73.9 Peripheral vascular disease, unspecified | CPT/HCPCS: 82947; G0277 ==

== ENCOUNTER 2020-09-19 03:10 | Day surgery (SDC) | payer OTHER, MEDICARE | END 2020-09-19 23:05 | disposition home or self-care (01) | LOC: HBO 03:10 | DX: E11.621 Type 2 diabetes mellitus with foot ulcer (principal); L89.622 Pressure ulcer of left heel, stage 2; S90.822D Blister (nonthermal), left foot, subsequent encounter; X58.XXXD Exposure to other specified factors, subsequent encounter; I73.9 Peripheral vascular disease, unspecified | CPT/HCPCS: 82947; G0277 ==

== ENCOUNTER 2020-09-20 03:30 | Day surgery (SDC) | payer OTHER, MEDICARE | END 2020-09-20 23:27 | disposition home or self-care (01) | LOC: HBO 03:30 | DX: E11.621 Type 2 diabetes mellitus with foot ulcer (principal); L97.509 Non-pressure chronic ulcer of other part of unspecified foot with unspecified severity; L89.622 Pressure ulcer of left heel, stage 2; S90.822D Blister (nonthermal), left foot, subsequent encounter; X58.XXXD Exposure to other specified factors, subsequent encounter; I73.9 Peripheral vascular disease, unspecified | CPT/HCPCS: 82947; G0277 ==

== ENCOUNTER 2020-09-21 03:52 | Day surgery (SDC) | payer OTHER, MEDICARE | END 2020-09-21 23:45 | disposition home or self-care (01) | LOC: HBO 03:52 | DX: E11.621 Type 2 diabetes mellitus with foot ulcer (principal); L97.509 Non-pressure chronic ulcer of other part of unspecified foot with unspecified severity; L89.622 Pressure ulcer of left heel, stage 2; S90.822D Blister (nonthermal), left foot, subsequent encounter; X58.XXXD Exposure to other specified factors, subsequent encounter; I73.9 Peripheral vascular disease, unspecified | CPT/HCPCS: 82947; G0277 ==

== ENCOUNTER 2020-09-22 00:51 | Day surgery (SDC) | payer OTHER, MEDICARE | END 2020-09-22 23:10 | disposition home or self-care (01) | LOC: HBO 00:51 | DX: E11.621 Type 2 diabetes mellitus with foot ulcer (principal); L97.522 Non-pressure chronic ulcer of other part of left foot with fat layer exposed; L89.622 Pressure ulcer of left heel, stage 2; I73.9 Peripheral vascular disease, unspecified | CPT/HCPCS: 82947; G0277 ==

== ENCOUNTER 2020-09-22 00:54 | Day surgery (SDC) | payer OTHER, MEDICARE | END 2020-09-22 23:10 | disposition home or self-care (01) | LOC: WOUND 00:54 | DX: E11.621 Type 2 diabetes mellitus with foot ulcer (principal); L97.522 Non-pressure chronic ulcer of other part of left foot with fat layer exposed; L97.422 Non-pressure chronic ulcer of left heel and midfoot with fat layer exposed; L89.622 Pressure ulcer of left heel, stage 2; I73.9 Peripheral vascular disease, unspecified | CPT/HCPCS: A9270 ==

== ENCOUNTER 2020-09-26 04:45 | Day surgery (SDC) | payer OTHER, MEDICARE | END 2020-09-26 23:43 | disposition home or self-care (01) | LOC: HBO 04:45 | DX: E11.621 Type 2 diabetes mellitus with foot ulcer (principal); L97.522 Non-pressure chronic ulcer of other part of left foot with fat layer exposed; L89.622 Pressure ulcer of left heel, stage 2; I73.9 Peripheral vascular disease, unspecified; T70.0XXA Otitic barotrauma, initial encounter | CPT/HCPCS: 82947; G0277 ==

== ENCOUNTER 2020-09-29 04:14 | Day surgery (SDC) | payer OTHER, MEDICARE | END 2020-09-29 23:09 | disposition home or self-care (01) | LOC: WOUND 04:14 | DX: E11.621 Type 2 diabetes mellitus with foot ulcer (principal); L97.525 Non-pressure chronic ulcer of other part of left foot with muscle involvement without evidence of necrosis; L97.422 Non-pressure chronic ulcer of left heel and midfoot with fat layer exposed; L97.522 Non-pressure chronic ulcer of other part of left foot with fat layer exposed; I73.9 Peripheral vascular disease, unspecified; T70.0XXA Otitic barotrauma, initial encounter | CPT/HCPCS: A9270 ==

== ENCOUNTER 2020-09-29 04:16 | Day surgery (SDC) | payer OTHER, MEDICARE | END 2020-09-29 23:09 | disposition home or self-care (01) | LOC: HBO 04:16 | DX: E11.621 Type 2 diabetes mellitus with foot ulcer (principal); L97.522 Non-pressure chronic ulcer of other part of left foot with fat layer exposed; L89.622 Pressure ulcer of left heel, stage 2; I73.9 Peripheral vascular disease, unspecified; T70.0XXA Otitic barotrauma, initial encounter | CPT/HCPCS: 82947 ==

== ENCOUNTER 2020-10-02 00:32 | Day surgery (SDC) | payer OTHER, MEDICARE | END 2020-10-02 23:01 | disposition home or self-care (01) | LOC: HBO 00:32 | DX: E11.621 Type 2 diabetes mellitus with foot ulcer (principal); L97.522 Non-pressure chronic ulcer of other part of left foot with fat layer exposed; L89.622 Pressure ulcer of left heel, stage 2; I73.9 Peripheral vascular disease, unspecified; T70.0XXA Otitic barotrauma, initial encounter | CPT/HCPCS: 82947; G0277 ==

== ENCOUNTER 2020-10-03 02:09 | Day surgery (SDC) | payer OTHER, MEDICARE | END 2020-10-03 22:51 | disposition home or self-care (01) | LOC: HBO 02:09 | DX: E11.621 Type 2 diabetes mellitus with foot ulcer (principal); L97.522 Non-pressure chronic ulcer of other part of left foot with fat layer exposed; L89.622 Pressure ulcer of left heel, stage 2; I73.9 Peripheral vascular disease, unspecified; T70.0XXA Otitic barotrauma, initial encounter | CPT/HCPCS: 82947; G0277 ==

== ENCOUNTER 2020-10-04 02:17 | Day surgery (SDC) | payer OTHER, MEDICARE | END 2020-10-04 23:51 | disposition home or self-care (01) | LOC: HBO 02:17 | DX: E11.621 Type 2 diabetes mellitus with foot ulcer (principal); L97.522 Non-pressure chronic ulcer of other part of left foot with fat layer exposed; L89.622 Pressure ulcer of left heel, stage 2; I73.9 Peripheral vascular disease, unspecified; T70.0XXA Otitic barotrauma, initial encounter | CPT/HCPCS: 82947; G0277 ==

== ENCOUNTER 2020-10-05 03:45 | Day surgery (SDC) | payer OTHER, MEDICARE | END 2020-10-05 22:50 | disposition home or self-care (01) | LOC: HBO 03:45 | DX: E11.621 Type 2 diabetes mellitus with foot ulcer (principal); L89.622 Pressure ulcer of left heel, stage 2; L97.522 Non-pressure chronic ulcer of other part of left foot with fat layer exposed; I73.9 Peripheral vascular disease, unspecified; T70.0XXA Otitic barotrauma, initial encounter | CPT/HCPCS: 82947; G0277 ==

== ENCOUNTER 2020-10-06 04:07 | Day surgery (SDC) | payer OTHER, MEDICARE | END 2020-10-07 00:34 | disposition home or self-care (01) | LOC: HBO 04:07 | DX: E11.621 Type 2 diabetes mellitus with foot ulcer (principal); L97.525 Non-pressure chronic ulcer of other part of left foot with muscle involvement without evidence of necrosis; L97.522 Non-pressure chronic ulcer of other part of left foot with fat layer exposed; L89.522 Pressure ulcer of left ankle, stage 2; I73.9 Peripheral vascular disease, unspecified; T70.0XXA Otitic barotrauma, initial encounter | CPT/HCPCS: 82947; G0277 ==

== ENCOUNTER 2020-10-06 04:11 | Day surgery (SDC) | payer OTHER, MEDICARE | END 2020-10-07 00:34 | disposition home or self-care (01) | LOC: WOUND 04:11 | DX: E11.621 Type 2 diabetes mellitus with foot ulcer (principal); L97.525 Non-pressure chronic ulcer of other part of left foot with muscle involvement without evidence of necrosis; L97.522 Non-pressure chronic ulcer of other part of left foot with fat layer exposed; L89.622 Pressure ulcer of left heel, stage 2; I73.9 Peripheral vascular disease, unspecified; T70.0XXA Otitic barotrauma, initial encounter | CPT/HCPCS: A9270 ==

== ENCOUNTER 2020-10-09 00:20 | Day surgery (SDC) | payer OTHER, MEDICARE | END 2020-10-09 23:17 | disposition home or self-care (01) | LOC: HBO 00:20 | DX: E11.621 Type 2 diabetes mellitus with foot ulcer (principal); L97.522 Non-pressure chronic ulcer of other part of left foot with fat layer exposed; L97.525 Non-pressure chronic ulcer of other part of left foot with muscle involvement without evidence of necrosis; L89.622 Pressure ulcer of left heel, stage 2; I73.9 Peripheral vascular disease, unspecified; T70.0XXA Otitic barotrauma, initial encounter | CPT/HCPCS: 82947; G0277 ==

== ENCOUNTER 2020-10-10 00:16 | Day surgery (SDC) | payer OTHER, MEDICARE | END 2020-10-11 22:50 | disposition home or self-care (01) | LOC: HBO 00:16 | DX: E11.621 Type 2 diabetes mellitus with foot ulcer (principal); L97.525 Non-pressure chronic ulcer of other part of left foot with muscle involvement without evidence of necrosis; L89.622 Pressure ulcer of left heel, stage 2; E11.51 Type 2 diabetes mellitus with diabetic peripheral angiopathy without gangrene; T70.0XXA Otitic barotrauma, initial encounter | CPT/HCPCS: 82947; G0277 ==

== ENCOUNTER 2020-10-11 04:37 | Day surgery (SDC) | payer OTHER, MEDICARE | END 2020-10-11 22:50 | disposition home or self-care (01) | LOC: HBO 04:37 | DX: E11.621 Type 2 diabetes mellitus with foot ulcer (principal); L97.522 Non-pressure chronic ulcer of other part of left foot with fat layer exposed; L97.525 Non-pressure chronic ulcer of other part of left foot with muscle involvement without evidence of necrosis; L89.622 Pressure ulcer of left heel, stage 2; I73.9 Peripheral vascular disease, unspecified; T70.0XXA Otitic barotrauma, initial encounter | CPT/HCPCS: 82947; G0277 ==

== ENCOUNTER 2020-10-13 04:43 | Day surgery (SDC) | payer OTHER, MEDICARE | END 2020-10-13 23:51 | disposition home or self-care (01) | LOC: WOUND 04:43 | DX: E11.621 Type 2 diabetes mellitus with foot ulcer (principal); L97.525 Non-pressure chronic ulcer of other part of left foot with muscle involvement without evidence of necrosis; L89.622 Pressure ulcer of left heel, stage 2; L97.522 Non-pressure chronic ulcer of other part of left foot with fat layer exposed; I73.9 Peripheral vascular disease, unspecified; T70.0XXA Otitic barotrauma, initial encounter | CPT/HCPCS: A9270 ==

== ENCOUNTER 2020-10-20 01:50 | Day surgery (SDC) | payer OTHER, MEDICARE | END 2020-10-20 12:00 | disposition home or self-care (01) | LOC: WOUND 01:50 | DX: E11.621 Type 2 diabetes mellitus with foot ulcer (principal); L97.422 Non-pressure chronic ulcer of left heel and midfoot with fat layer exposed; L97.525 Non-pressure chronic ulcer of other part of left foot with muscle involvement without evidence of necrosis; L89.623 Pressure ulcer of left heel, stage 3; I73.9 Peripheral vascular disease, unspecified; T70.0XXA Otitic barotrauma, initial encounter; R07.9 Chest pain, unspecified | CPT/HCPCS: A9270 ==

== ENCOUNTER 2020-10-27 04:57 | Day surgery (SDC) | payer OTHER, MEDICARE | END 2020-10-27 23:42 | disposition home or self-care (01) | LOC: WOUND 04:57 | DX: E11.621 Type 2 diabetes mellitus with foot ulcer (principal); L97.422 Non-pressure chronic ulcer of left heel and midfoot with fat layer exposed; L97.522 Non-pressure chronic ulcer of other part of left foot with fat layer exposed; I73.9 Peripheral vascular disease, unspecified; R07.9 Chest pain, unspecified | CPT/HCPCS: A9270 ==

== ENCOUNTER 2020-11-03 00:42 | Day surgery (SDC) | payer OTHER, MEDICARE | END 2020-11-03 23:00 | disposition home or self-care (01) | LOC: WOUND 00:42 | DX: E11.621 Type 2 diabetes mellitus with foot ulcer (principal); L97.525 Non-pressure chronic ulcer of other part of left foot with muscle involvement without evidence of necrosis; L97.422 Non-pressure chronic ulcer of left heel and midfoot with fat layer exposed; L97.522 Non-pressure chronic ulcer of other part of left foot with fat layer exposed | CPT/HCPCS: A9270 ==

== ENCOUNTER 2020-11-10 01:22 | Day surgery (SDC) | payer OTHER, MEDICARE | END 2020-11-10 22:46 | disposition home or self-care (01) | LOC: WOUND 01:22 | DX: E11.621 Type 2 diabetes mellitus with foot ulcer (principal); L97.525 Non-pressure chronic ulcer of other part of left foot with muscle involvement without evidence of necrosis; L97.422 Non-pressure chronic ulcer of left heel and midfoot with fat layer exposed; E11.51 Type 2 diabetes mellitus with diabetic peripheral angiopathy without gangrene; R07.9 Chest pain, unspecified | CPT/HCPCS: A9270 ==

== ENCOUNTER 2020-11-14 08:00 | Day surgery (SDC) | payer OTHER, MEDICARE | END 2020-11-14 23:59 | disposition home or self-care (01) | LOC: HBO 08:00 | DX: E11.621 Type 2 diabetes mellitus with foot ulcer (principal); L89.622 Pressure ulcer of left heel, stage 2; L97.522 Non-pressure chronic ulcer of other part of left foot with fat layer exposed; L97.525 Non-pressure chronic ulcer of other part of left foot with muscle involvement without evidence of necrosis; R07.9 Chest pain, unspecified; E11.51 Type 2 diabetes mellitus with diabetic peripheral angiopathy without gangrene; Z79.4 Long term (current) use of insulin | CPT/HCPCS: 82947; G0277 ==

== ENCOUNTER 2020-11-17 01:32 | Day surgery (SDC) | payer OTHER, MEDICARE | END 2020-11-17 12:00 | disposition home or self-care (01) | LOC: HBO 01:32 | DX: E11.621 Type 2 diabetes mellitus with foot ulcer (principal); L97.525 Non-pressure chronic ulcer of other part of left foot with muscle involvement without evidence of necrosis; L97.522 Non-pressure chronic ulcer of other part of left foot with fat layer exposed; L89.622 Pressure ulcer of left heel, stage 2; R07.9 Chest pain, unspecified; I73.9 Peripheral vascular disease, unspecified | CPT/HCPCS: 82947; G0277 ==

== ENCOUNTER 2020-11-17 01:42 | Day surgery (SDC) | payer OTHER, MEDICARE | END 2020-11-17 12:00 | disposition home or self-care (01) | LOC: WOUND 01:42 | DX: E11.621 Type 2 diabetes mellitus with foot ulcer (principal); L97.525 Non-pressure chronic ulcer of other part of left foot with muscle involvement without evidence of necrosis; L89.622 Pressure ulcer of left heel, stage 2; L73.9 Follicular disorder, unspecified; R07.9 Chest pain, unspecified; Z88.0 Allergy status to penicillin; Z88.8 Allergy status to other drugs, medicaments and biological substances | CPT/HCPCS: A9270 ==

== ENCOUNTER 2020-11-20 02:39 | Day surgery (SDC) | payer OTHER, MEDICARE | END 2020-11-20 23:46 | disposition home or self-care (01) | LOC: HBO 02:39 | DX: E11.621 Type 2 diabetes mellitus with foot ulcer (principal); L97.528 Non-pressure chronic ulcer of other part of left foot with other specified severity; L89.622 Pressure ulcer of left heel, stage 2; I73.9 Peripheral vascular disease, unspecified; R07.9 Chest pain, unspecified | CPT/HCPCS: 82947; G0277 ==

== ENCOUNTER 2020-11-22 01:25 | Day surgery (SDC) | payer OTHER, MEDICARE | END 2020-11-22 22:46 | disposition home or self-care (01) | LOC: HBO 01:25 | DX: E11.621 Type 2 diabetes mellitus with foot ulcer (principal); L97.528 Non-pressure chronic ulcer of other part of left foot with other specified severity; L89.622 Pressure ulcer of left heel, stage 2; R07.9 Chest pain, unspecified; E11.51 Type 2 diabetes mellitus with diabetic peripheral angiopathy without gangrene | CPT/HCPCS: 82947; G0277 ==

== ENCOUNTER 2020-11-23 02:07 | Day surgery (SDC) | payer OTHER, MEDICARE | END 2020-11-23 22:42 | disposition home or self-care (01) | LOC: HBO 02:07 | DX: E11.621 Type 2 diabetes mellitus with foot ulcer (principal); L97.528 Non-pressure chronic ulcer of other part of left foot with other specified severity; L89.622 Pressure ulcer of left heel, stage 2; I73.9 Peripheral vascular disease, unspecified; R07.9 Chest pain, unspecified | CPT/HCPCS: 82947; G0277 ==

== ENCOUNTER 2020-11-24 01:06 | Day surgery (SDC) | payer OTHER | END 2020-11-24 23:17 | disposition home or self-care (01) | LOC: HBO 01:06 | DX: E11.621 Type 2 diabetes mellitus with foot ulcer (principal); L89.622 Pressure ulcer of left heel, stage 2; L97.528 Non-pressure chronic ulcer of other part of left foot with other specified severity; E11.51 Type 2 diabetes mellitus with diabetic peripheral angiopathy without gangrene; R07.9 Chest pain, unspecified | CPT/HCPCS: 82947; A9270; G0277 ==

== ENCOUNTER 2020-11-24 01:10 | Day surgery (SDC) | payer OTHER, MEDICARE | END 2020-11-24 23:17 | disposition home or self-care (01) | LOC: WOUND 01:10 | DX: E11.621 Type 2 diabetes mellitus with foot ulcer (principal); L97.422 Non-pressure chronic ulcer of left heel and midfoot with fat layer exposed; L97.525 Non-pressure chronic ulcer of other part of left foot with muscle involvement without evidence of necrosis; L97.522 Non-pressure chronic ulcer of other part of left foot with fat layer exposed; E11.51 Type 2 diabetes mellitus with diabetic peripheral angiopathy without gangrene; R07.9 Chest pain, unspecified | CPT/HCPCS: A9270 ==

== ENCOUNTER 2020-11-27 08:40 | Day surgery (SDC) | payer OTHER | END 2020-11-27 23:03 | disposition home or self-care (01) | LOC: HBO 08:40 | DX: E11.621 Type 2 diabetes mellitus with foot ulcer (principal); L97.528 Non-pressure chronic ulcer of other part of left foot with other specified severity; L89.622 Pressure ulcer of left heel, stage 2; E11.51 Type 2 diabetes mellitus with diabetic peripheral angiopathy without gangrene | CPT/HCPCS: 82947; G0277 ==

== ENCOUNTER 2020-11-28 04:14 | Day surgery (SDC) | payer OTHER, MEDICARE | END 2020-11-28 22:50 | disposition home or self-care (01) | LOC: HBO 04:14 | DX: E11.621 Type 2 diabetes mellitus with foot ulcer (principal); L97.528 Non-pressure chronic ulcer of other part of left foot with other specified severity; L89.622 Pressure ulcer of left heel, stage 2; E11.51 Type 2 diabetes mellitus with diabetic peripheral angiopathy without gangrene | CPT/HCPCS: 82947; G0277 ==

== ENCOUNTER 2020-11-29 01:19 | Day surgery (SDC) | payer OTHER | END 2020-11-29 23:07 | disposition home or self-care (01) | LOC: HBO 01:19 | DX: E11.621 Type 2 diabetes mellitus with foot ulcer (principal); L97.528 Non-pressure chronic ulcer of other part of left foot with other specified severity; L89.622 Pressure ulcer of left heel, stage 2; E11.51 Type 2 diabetes mellitus with diabetic peripheral angiopathy without gangrene | CPT/HCPCS: 82947; G0277 ==

== ENCOUNTER 2020-11-30 01:59 | Day surgery (SDC) | payer OTHER, MEDICARE | END 2020-11-30 23:00 | disposition home or self-care (01) | LOC: HBO 01:59 | DX: E11.621 Type 2 diabetes mellitus with foot ulcer (principal); L97.528 Non-pressure chronic ulcer of other part of left foot with other specified severity; L89.622 Pressure ulcer of left heel, stage 2; E11.51 Type 2 diabetes mellitus with diabetic peripheral angiopathy without gangrene | CPT/HCPCS: 82947; G0277 ==

== ENCOUNTER 2020-12-01 00:20 | Day surgery (SDC) | payer OTHER, MEDICARE | END 2020-12-01 23:00 | disposition home or self-care (01) | LOC: HBO 00:20 | DX: E11.621 Type 2 diabetes mellitus with foot ulcer (principal); L97.528 Non-pressure chronic ulcer of other part of left foot with other specified severity; L89.622 Pressure ulcer of left heel, stage 2; E11.51 Type 2 diabetes mellitus with diabetic peripheral angiopathy without gangrene | CPT/HCPCS: 82947; G0277 ==

== ENCOUNTER 2020-12-01 00:25 | Day surgery (SDC) | payer OTHER, MEDICARE | END 2020-12-01 23:00 | disposition home or self-care (01) | LOC: WOUND 00:25 | DX: E11.621 Type 2 diabetes mellitus with foot ulcer (principal); L97.528 Non-pressure chronic ulcer of other part of left foot with other specified severity; L89.622 Pressure ulcer of left heel, stage 2; E11.51 Type 2 diabetes mellitus with diabetic peripheral angiopathy without gangrene | CPT/HCPCS: A9270 ==

== ENCOUNTER 2020-12-04 00:08 | Day surgery (SDC) | payer OTHER | END 2020-12-04 22:55 | disposition home or self-care (01) | LOC: HBO 00:08 | DX: E11.621 Type 2 diabetes mellitus with foot ulcer (principal); L97.528 Non-pressure chronic ulcer of other part of left foot with other specified severity; L97.429 Non-pressure chronic ulcer of left heel and midfoot with unspecified severity; E11.51 Type 2 diabetes mellitus with diabetic peripheral angiopathy without gangrene; L89.622 Pressure ulcer of left heel, stage 2 | CPT/HCPCS: 82947; G0277 ==

== ENCOUNTER 2020-12-07 08:00 | Day surgery (SDC) | payer OTHER | END 2020-12-07 23:59 | disposition home or self-care (01) | LOC: HBO 08:00 → EDSTATUS 13:59 → HBO 23:59 | DX: E11.621 Type 2 diabetes mellitus with foot ulcer (principal); L97.528 Non-pressure chronic ulcer of other part of left foot with other specified severity; L89.622 Pressure ulcer of left heel, stage 2; E11.51 Type 2 diabetes mellitus with diabetic peripheral angiopathy without gangrene | CPT/HCPCS: 82947; G0277 ==

== ENCOUNTER 2020-12-08 01:11 | Day surgery (SDC) | payer OTHER | END 2020-12-08 23:40 | disposition home or self-care (01) | LOC: HBO 01:11 | DX: E11.621 Type 2 diabetes mellitus with foot ulcer (principal); L97.528 Non-pressure chronic ulcer of other part of left foot with other specified severity; L89.622 Pressure ulcer of left heel, stage 2; E11.51 Type 2 diabetes mellitus with diabetic peripheral angiopathy without gangrene | CPT/HCPCS: 82947; G0277 ==

== ENCOUNTER 2020-12-08 01:22 | Day surgery (SDC) | payer OTHER | END 2020-12-08 23:40 | disposition home or self-care (01) | LOC: WOUND 01:22 | DX: E11.621 Type 2 diabetes mellitus with foot ulcer (principal); L97.528 Non-pressure chronic ulcer of other part of left foot with other specified severity; L97.428 Non-pressure chronic ulcer of left heel and midfoot with other specified severity; L89.622 Pressure ulcer of left heel, stage 2; E11.51 Type 2 diabetes mellitus with diabetic peripheral angiopathy without gangrene | CPT/HCPCS: A9270 ==

== ENCOUNTER 2020-12-11 02:18 | Day surgery (SDC) | payer OTHER | END 2020-12-11 12:00 | disposition home or self-care (01) | LOC: HBO 02:18 | DX: E11.621 Type 2 diabetes mellitus with foot ulcer (principal); L97.528 Non-pressure chronic ulcer of other part of left foot with other specified severity; L89.622 Pressure ulcer of left heel, stage 2; E11.51 Type 2 diabetes mellitus with diabetic peripheral angiopathy without gangrene | CPT/HCPCS: 82947; G0277 ==

== ENCOUNTER 2020-12-12 02:02 | Day surgery (SDC) | payer OTHER | END 2020-12-12 23:00 | disposition home or self-care (01) | LOC: HBO 02:02 | DX: E11.621 Type 2 diabetes mellitus with foot ulcer (principal); L97.528 Non-pressure chronic ulcer of other part of left foot with other specified severity; L89.622 Pressure ulcer of left heel, stage 2; E11.51 Type 2 diabetes mellitus with diabetic peripheral angiopathy without gangrene | CPT/HCPCS: 82947; G0277 ==

== ENCOUNTER 2020-12-12 08:59 | Day surgery (SDC) | payer OTHER | END 2020-12-12 23:00 | disposition home or self-care (01) | LOC: WOUND 08:59 | DX: E11.621 Type 2 diabetes mellitus with foot ulcer (principal); L97.528 Non-pressure chronic ulcer of other part of left foot with other specified severity; L89.622 Pressure ulcer of left heel, stage 2; E11.51 Type 2 diabetes mellitus with diabetic peripheral angiopathy without gangrene | CPT/HCPCS: G0463 ==

== ENCOUNTER 2020-12-13 02:21 | Day surgery (SDC) | payer OTHER, MEDICARE | END 2020-12-13 23:15 | disposition home or self-care (01) | LOC: HBO 02:21 | DX: E11.621 Type 2 diabetes mellitus with foot ulcer (principal); L97.528 Non-pressure chronic ulcer of other part of left foot with other specified severity; L89.622 Pressure ulcer of left heel, stage 2; E11.51 Type 2 diabetes mellitus with diabetic peripheral angiopathy without gangrene | CPT/HCPCS: 82947; G0277 ==

== ENCOUNTER 2020-12-14 04:06 | Day surgery (SDC) | payer OTHER | END 2020-12-14 23:32 | disposition home or self-care (01) | LOC: HBO 04:06 | DX: E11.621 Type 2 diabetes mellitus with foot ulcer (principal); L97.528 Non-pressure chronic ulcer of other part of left foot with other specified severity; L89.622 Pressure ulcer of left heel, stage 2; E11.51 Type 2 diabetes mellitus with diabetic peripheral angiopathy without gangrene | CPT/HCPCS: 82947; G0277 ==

== ENCOUNTER 2020-12-15 00:53 | Day surgery (SDC) | payer OTHER, MEDICARE | END 2020-12-15 23:57 | disposition home or self-care (01) | LOC: HBO 00:53 | DX: E11.621 Type 2 diabetes mellitus with foot ulcer (principal); L97.528 Non-pressure chronic ulcer of other part of left foot with other specified severity; L89.622 Pressure ulcer of left heel, stage 2; E11.51 Type 2 diabetes mellitus with diabetic peripheral angiopathy without gangrene | CPT/HCPCS: 82947; G0277 ==

== ENCOUNTER 2020-12-15 00:58 | Day surgery (SDC) | payer OTHER, MEDICARE | END 2020-12-15 23:57 | disposition home or self-care (01) | LOC: WOUND 00:58 | DX: E11.621 Type 2 diabetes mellitus with foot ulcer (principal); L97.522 Non-pressure chronic ulcer of other part of left foot with fat layer exposed; L89.622 Pressure ulcer of left heel, stage 2; E11.51 Type 2 diabetes mellitus with diabetic peripheral angiopathy without gangrene | CPT/HCPCS: 82947; A9270 ==

== ENCOUNTER 2020-12-18 02:10 | Day surgery (SDC) | payer OTHER, MEDICARE | END 2020-12-18 23:44 | disposition home or self-care (01) | LOC: HBO 02:10 | DX: E11.621 Type 2 diabetes mellitus with foot ulcer (principal); L97.528 Non-pressure chronic ulcer of other part of left foot with other specified severity; L89.622 Pressure ulcer of left heel, stage 2; E11.51 Type 2 diabetes mellitus with diabetic peripheral angiopathy without gangrene | CPT/HCPCS: 82947; G0277 ==

== ENCOUNTER 2020-12-19 00:23 | Day surgery (SDC) | payer OTHER, MEDICARE | END 2020-12-19 22:47 | disposition home or self-care (01) | LOC: WOUND 00:23 → HBO 13:53 → WOUND 16:30 | DX: E11.621 Type 2 diabetes mellitus with foot ulcer (principal); L97.525 Non-pressure chronic ulcer of other part of left foot with muscle involvement without evidence of necrosis; E11.51 Type 2 diabetes mellitus with diabetic peripheral angiopathy without gangrene | CPT/HCPCS: A9270 ==

== ENCOUNTER 2020-12-25 02:51 | Day surgery (SDC) | payer OTHER, MEDICARE ==
[2020-12-25] MEDS ORDERED: CIPRODEX BOTHEYES (13:35)
[2020-12-25] MEDS ORDERED: CIPRODEX UD (13:36)
[2020-12-25] MEDS ORDERED: VOLTAREN UD (13:38)
[2020-12-25] MEDS ORDERED: GABA100 PO (13:40)
[2020-12-25] MEDS ORDERED: LINE600 PO (13:42)
[2020-12-25] MEDS ORDERED: Ativan1 MG PO (13:42)
[2020-12-25] MEDS ORDERED: METR500 PO (13:44)
[2020-12-25] MEDS ORDERED: [UNRECOGNIZED DRUG - OTHER] BOTHEYES (13:45)
[2020-12-25] MEDS ORDERED: NEOSPORIN BOTHEYES (13:46)
[2020-12-25] MEDS ORDERED: NITR.4SL SL (13:47)
[2020-12-25] MEDS ORDERED: Percocet 5-3251 EACH PO (13:48)
[2020-12-25] MEDS ORDERED: SENN187 PO (13:51)
[2020-12-25] MEDS ORDERED: Triamcinolone A15 G3 TOP (13:52)
[2020-12-25] MEDS ORDERED: SKYRIZI75 MG/0.81 SC (13:53)
== END 2020-12-25 23:19 | disposition home or self-care (01) ==
LOC: HBO 02:51
DX: E11.621 Type 2 diabetes mellitus with foot ulcer (principal); L97.528 Non-pressure chronic ulcer of other part of left foot with other specified severity; L89.622 Pressure ulcer of left heel, stage 2; E11.51 Type 2 diabetes mellitus with diabetic peripheral angiopathy without gangrene
CPT/HCPCS: 82947; G0277; G0463

== ENCOUNTER 2020-12-26 08:22 | Day surgery (SDC) | payer MEDICARE, OTHER ==
[~2020-12-26] VITALS: Ht 188 cm; Wt 124.5 kg
[~2020-12-26 08:22] MED LIST changes: +Ativan1 MG PO; +CIPRODEX BOTHEYES; +CIPRODEX UD; +GABA100 PO; +LINE600 PO; +METR500 PO; +NEOSPORIN BOTHEYES; +SKYRIZI75 MG/0.81 SC; +Triamcinolone A15 G3 TOP; +VOLTAREN UD; +[UNRECOGNIZED DRUG - OTHER] BOTHEYES
--- NOTE | 2020-12-26 08:45 | NUR ---
To recovery room via wheelchair.
--- NOTE | 2020-12-26 09:15 | NUR ---
c/o 08/05 left foot pain. oxycodone 10 mg po given per TAMIKO Jolly.
--- NOTE | 2020-12-26 09:59 | NUR ---
left foot pain 05/07.
--- NOTE | 2020-12-26 10:29 | NUR ---
CBG 145. PT TO PARER.
--- NOTE | 2020-12-26 13:25 | NUR ---
PT ARRIVED BACK TO RECOVERY ROOM IN BED. RIGHT FEMORAL GROIN SITE SOFT NON-TENDER WITH NO HEMATOMA, NO PULSATILE BLEEDING AND INTACT DRESSING. LEFT PT PEDAL ACCES SITE SOFT NON-TENDER WITH NO HEMATOMA AND NO PULSATILE BLEEDING AND INTACT DRESSING. PT DENIES CHEST PAIN. RIGHT DP PULSE DOPPLER. CALL LIGHT IN REACH.
--- NOTE | 2020-12-26 14:28 | NUR ---
FULL REPORT PROVIDED ROXANN CAPELLAN TO ASSUME CARE OF PT IN RECOVERY ROOM.
--- NOTE | 2020-12-26 15:18 | NUR ---
PT C/O PAIN IN LEFT FOOT AND ASKING FOR IT TO BE DRESSED. OXYCODONE GIVEN PER ORDER AND WOUND CENTER CALLED FOR INFORMATION AND SUPPLIES ON WHAT DRESSING PT USES.
--- NOTE | 2020-12-26 15:35 | NUR ---
NEW DRESSING PLACED ON LEFT FOOT PER WOUND CENTER ORDERS.
--- NOTE | 2020-12-26 16:17 | NUR ---
PT UP AND DRESSED WITH MINIMAL ASSISTANCE. SALINE LOCK REMOVED WITH CATHETER INTACT. PT TO PRIVATE VEHICLE PER W/C WITH ONE STAFF. DISCHARGE INSTRUCTIONS REVIEWED WITH PT AND WITH DAUGHTER AT VEHICLE. BOTH VERBALIZE UNDERSTANDING OF INSTRUCTIONS.
== END 2020-12-26 16:15 | disposition home or self-care (01) ==
LOC: MHTC 08:22
DX: E11.51 Type 2 diabetes mellitus with diabetic peripheral angiopathy without gangrene (principal); I70.245 Atherosclerosis of native arteries of left leg with ulceration of other part of foot; E11.621 Type 2 diabetes mellitus with foot ulcer; L97.526 Non-pressure chronic ulcer of other part of left foot with bone involvement without evidence of necrosis; I65.23 Occlusion and stenosis of bilateral carotid arteries; I65.03 Occlusion and stenosis of bilateral vertebral arteries; I11.0 Hypertensive heart disease with heart failure; I50.9 Heart failure, unspecified; E78.5 Hyperlipidemia, unspecified; I25.10 Atherosclerotic heart disease of native coronary artery without angina pectoris; E66.01 Morbid (severe) obesity due to excess calories; I48.0 Paroxysmal atrial fibrillation; Z86.73 Personal history of transient ischemic attack (TIA), and cerebral infarction without residual deficits; Z95.1 Presence of aortocoronary bypass graft; Z88.8 Allergy status to other drugs, medicaments and biological substances; Z88.0 Allergy status to penicillin; Z79.82 Long term (current) use of aspirin; Z79.4 Long term (current) use of insulin; Z79.01 Long term (current) use of anticoagulants; Z68.36 Body mass index [BMI] 36.0-36.9, adult
CPT/HCPCS: 76937; 82947; 85347; 99152; 99153; A9270; C1725; C1760; C1769; C1876; C1885; C1887; C1894; C2623; J0360; J1644; J2250; J2405; J3010; J7030; Q9967

== ENCOUNTER 2020-12-29 02:38 | Day surgery (SDC) | payer OTHER, MEDICARE | END 2020-12-29 23:31 | disposition home or self-care (01) | LOC: HBO 02:38 | DX: E11.621 Type 2 diabetes mellitus with foot ulcer (principal); L97.528 Non-pressure chronic ulcer of other part of left foot with other specified severity; L89.622 Pressure ulcer of left heel, stage 2; E11.51 Type 2 diabetes mellitus with diabetic peripheral angiopathy without gangrene | CPT/HCPCS: 82947; G0277 ==

== ENCOUNTER 2020-12-29 02:57 | Day surgery (SDC) | payer OTHER, MEDICARE | END 2020-12-29 23:32 | disposition home or self-care (01) | LOC: WOUND 02:57 | DX: E11.621 Type 2 diabetes mellitus with foot ulcer (principal); L97.528 Non-pressure chronic ulcer of other part of left foot with other specified severity; L89.622 Pressure ulcer of left heel, stage 2; E11.51 Type 2 diabetes mellitus with diabetic peripheral angiopathy without gangrene; Z88.0 Allergy status to penicillin; Z88.5 Allergy status to narcotic agent; Z88.8 Allergy status to other drugs, medicaments and biological substances | CPT/HCPCS: A9270 ==

== ENCOUNTER 2021-01-02 02:36 | Day surgery (SDC) | payer OTHER, MEDICARE | END 2021-01-02 23:00 | disposition home or self-care (01) | LOC: HBO 02:36 | DX: E11.621 Type 2 diabetes mellitus with foot ulcer (principal); L97.528 Non-pressure chronic ulcer of other part of left foot with other specified severity; L89.622 Pressure ulcer of left heel, stage 2; E11.51 Type 2 diabetes mellitus with diabetic peripheral angiopathy without gangrene | CPT/HCPCS: 82947; G0277 ==

== ENCOUNTER 2021-01-02 08:15 | Day surgery (SDC) | payer OTHER, MEDICARE | END 2021-01-02 23:00 | disposition home or self-care (01) | LOC: WOUND 08:15 | DX: E11.621 Type 2 diabetes mellitus with foot ulcer (principal); L97.528 Non-pressure chronic ulcer of other part of left foot with other specified severity; L89.622 Pressure ulcer of left heel, stage 2; E11.51 Type 2 diabetes mellitus with diabetic peripheral angiopathy without gangrene | CPT/HCPCS: G0463 ==

== ENCOUNTER 2021-01-03 02:16 | Day surgery (SDC) | payer OTHER, MEDICARE | END 2021-01-03 23:49 | disposition home or self-care (01) | LOC: HBO 02:16 | DX: E11.621 Type 2 diabetes mellitus with foot ulcer (principal); L97.528 Non-pressure chronic ulcer of other part of left foot with other specified severity; L89.622 Pressure ulcer of left heel, stage 2; E11.51 Type 2 diabetes mellitus with diabetic peripheral angiopathy without gangrene | CPT/HCPCS: 82947; G0277 ==

== ENCOUNTER 2021-01-04 01:37 | Day surgery (SDC) | payer OTHER, MEDICARE | END 2021-01-04 23:05 | disposition home or self-care (01) | LOC: HBO 01:37 | DX: E11.621 Type 2 diabetes mellitus with foot ulcer (principal); L97.528 Non-pressure chronic ulcer of other part of left foot with other specified severity; L89.622 Pressure ulcer of left heel, stage 2; E11.51 Type 2 diabetes mellitus with diabetic peripheral angiopathy without gangrene | CPT/HCPCS: 82947; G0277 ==

== ENCOUNTER 2021-01-05 01:10 | Day surgery (SDC) | payer OTHER, MEDICARE | END 2021-01-05 23:09 | disposition home or self-care (01) | LOC: HBO 01:10 | DX: E11.621 Type 2 diabetes mellitus with foot ulcer (principal); L97.528 Non-pressure chronic ulcer of other part of left foot with other specified severity; E11.51 Type 2 diabetes mellitus with diabetic peripheral angiopathy without gangrene; L89.622 Pressure ulcer of left heel, stage 2 | CPT/HCPCS: G0277 ==

== ENCOUNTER 2021-01-05 01:15 | Day surgery (SDC) | payer OTHER, MEDICARE | END 2021-01-05 23:09 | disposition home or self-care (01) | LOC: WOUND 01:15 | DX: E11.621 Type 2 diabetes mellitus with foot ulcer (principal); L97.528 Non-pressure chronic ulcer of other part of left foot with other specified severity; E11.51 Type 2 diabetes mellitus with diabetic peripheral angiopathy without gangrene; L89.622 Pressure ulcer of left heel, stage 2 | CPT/HCPCS: 82947; A9270 ==

== ENCOUNTER 2021-01-08 00:28 | Day surgery (SDC) | payer OTHER, MEDICARE | END 2021-01-08 23:06 | disposition home or self-care (01) | LOC: HBO 00:28 | DX: E11.621 Type 2 diabetes mellitus with foot ulcer (principal); L97.528 Non-pressure chronic ulcer of other part of left foot with other specified severity; E11.51 Type 2 diabetes mellitus with diabetic peripheral angiopathy without gangrene; L89.622 Pressure ulcer of left heel, stage 2 | CPT/HCPCS: 82947; G0277 ==

== ENCOUNTER 2021-01-09 01:48 | Day surgery (SDC) | payer OTHER, MEDICARE | END 2021-01-09 22:49 | disposition home or self-care (01) | LOC: HBO 01:48 | DX: E11.621 Type 2 diabetes mellitus with foot ulcer (principal); L89.622 Pressure ulcer of left heel, stage 2; L97.528 Non-pressure chronic ulcer of other part of left foot with other specified severity; I73.9 Peripheral vascular disease, unspecified | CPT/HCPCS: 82947; G0277 ==

== ENCOUNTER 2021-01-10 00:42 | Day surgery (SDC) | payer OTHER, MEDICARE | END 2021-01-10 23:55 | disposition home or self-care (01) | LOC: HBO 00:42 | DX: E11.621 Type 2 diabetes mellitus with foot ulcer (principal); L97.528 Non-pressure chronic ulcer of other part of left foot with other specified severity; L89.622 Pressure ulcer of left heel, stage 2; E11.51 Type 2 diabetes mellitus with diabetic peripheral angiopathy without gangrene | CPT/HCPCS: 82947; G0277 ==

== ENCOUNTER 2021-01-11 03:05 | Day surgery (SDC) | payer OTHER, MEDICARE | END 2021-01-11 23:15 | disposition home or self-care (01) | LOC: HBO 03:05 | DX: E11.621 Type 2 diabetes mellitus with foot ulcer (principal); L97.528 Non-pressure chronic ulcer of other part of left foot with other specified severity; L89.622 Pressure ulcer of left heel, stage 2; E11.51 Type 2 diabetes mellitus with diabetic peripheral angiopathy without gangrene | CPT/HCPCS: 82947; G0277 ==

== ENCOUNTER 2021-01-12 01:32 | Day surgery (SDC) | payer OTHER, MEDICARE | END 2021-01-12 23:25 | disposition home or self-care (01) | LOC: HBO 01:32 | DX: E11.621 Type 2 diabetes mellitus with foot ulcer (principal); L97.528 Non-pressure chronic ulcer of other part of left foot with other specified severity; L89.622 Pressure ulcer of left heel, stage 2; E11.51 Type 2 diabetes mellitus with diabetic peripheral angiopathy without gangrene | CPT/HCPCS: 82947; G0277 ==

== ENCOUNTER 2021-01-12 01:36 | Day surgery (SDC) | payer OTHER, MEDICARE | END 2021-01-12 23:25 | disposition home or self-care (01) | LOC: WOUND 01:36 | DX: E11.621 Type 2 diabetes mellitus with foot ulcer (principal); L97.525 Non-pressure chronic ulcer of other part of left foot with muscle involvement without evidence of necrosis; L89.622 Pressure ulcer of left heel, stage 2; E11.51 Type 2 diabetes mellitus with diabetic peripheral angiopathy without gangrene | CPT/HCPCS: 82947; A9270 ==

== ENCOUNTER 2021-01-18 01:13 | Day surgery (SDC) | payer OTHER, MEDICARE | END 2021-01-18 23:05 | disposition home or self-care (01) | LOC: HBO 01:13 | DX: E11.621 Type 2 diabetes mellitus with foot ulcer (principal); L97.528 Non-pressure chronic ulcer of other part of left foot with other specified severity; L89.622 Pressure ulcer of left heel, stage 2; E11.51 Type 2 diabetes mellitus with diabetic peripheral angiopathy without gangrene | CPT/HCPCS: 82947; G0277 ==

== ENCOUNTER 2021-01-19 04:21 | Day surgery (SDC) | payer OTHER, MEDICARE | END 2021-01-19 23:18 | disposition home or self-care (01) | LOC: WOUND 04:21 | DX: E11.621 Type 2 diabetes mellitus with foot ulcer (principal); L97.525 Non-pressure chronic ulcer of other part of left foot with muscle involvement without evidence of necrosis; L89.622 Pressure ulcer of left heel, stage 2; E11.51 Type 2 diabetes mellitus with diabetic peripheral angiopathy without gangrene | CPT/HCPCS: 82947; A9270 ==

== ENCOUNTER 2021-01-19 04:23 | Day surgery (SDC) | payer OTHER, MEDICARE | END 2021-01-19 23:19 | disposition home or self-care (01) | LOC: HBO 04:23 | DX: E11.621 Type 2 diabetes mellitus with foot ulcer (principal); L97.528 Non-pressure chronic ulcer of other part of left foot with other specified severity; L89.622 Pressure ulcer of left heel, stage 2; E11.51 Type 2 diabetes mellitus with diabetic peripheral angiopathy without gangrene | CPT/HCPCS: 82947; G0277 ==

== ENCOUNTER 2021-01-22 04:40 | Day surgery (SDC) | payer OTHER, MEDICARE | END 2021-01-22 23:37 | disposition home or self-care (01) | LOC: HBO 04:40 | DX: E11.621 Type 2 diabetes mellitus with foot ulcer (principal); L97.528 Non-pressure chronic ulcer of other part of left foot with other specified severity; L89.622 Pressure ulcer of left heel, stage 2; E11.51 Type 2 diabetes mellitus with diabetic peripheral angiopathy without gangrene | CPT/HCPCS: 82947; G0277 ==

== ENCOUNTER 2021-01-23 02:43 | Day surgery (SDC) | payer OTHER, MEDICARE | END 2021-01-23 22:44 | disposition home or self-care (01) | LOC: HBO 02:43 | DX: E11.621 Type 2 diabetes mellitus with foot ulcer (principal); L97.528 Non-pressure chronic ulcer of other part of left foot with other specified severity; L89.622 Pressure ulcer of left heel, stage 2; E11.51 Type 2 diabetes mellitus with diabetic peripheral angiopathy without gangrene | CPT/HCPCS: 82947; G0277 ==

== ENCOUNTER 2021-01-24 02:29 | Day surgery (SDC) | payer OTHER, MEDICARE | END 2021-01-24 22:57 | disposition home or self-care (01) | LOC: HBO 02:29 | DX: E11.621 Type 2 diabetes mellitus with foot ulcer (principal); L97.528 Non-pressure chronic ulcer of other part of left foot with other specified severity; L89.622 Pressure ulcer of left heel, stage 2; E11.51 Type 2 diabetes mellitus with diabetic peripheral angiopathy without gangrene | CPT/HCPCS: 82947; G0277 ==

== ENCOUNTER 2021-01-25 00:38 | Day surgery (SDC) | payer OTHER, MEDICARE | END 2021-01-25 23:04 | disposition home or self-care (01) | LOC: HBO 00:38 | DX: E11.621 Type 2 diabetes mellitus with foot ulcer (principal); L97.528 Non-pressure chronic ulcer of other part of left foot with other specified severity; E11.51 Type 2 diabetes mellitus with diabetic peripheral angiopathy without gangrene; L89.622 Pressure ulcer of left heel, stage 2 | CPT/HCPCS: 82947; G0277 ==

== ENCOUNTER 2021-01-26 00:34 | Day surgery (SDC) | payer OTHER, MEDICARE | END 2021-01-26 12:00 | disposition home or self-care (01) | LOC: HBO 00:34 | DX: E11.621 Type 2 diabetes mellitus with foot ulcer (principal); L97.528 Non-pressure chronic ulcer of other part of left foot with other specified severity; E11.51 Type 2 diabetes mellitus with diabetic peripheral angiopathy without gangrene; L89.622 Pressure ulcer of left heel, stage 2 | CPT/HCPCS: 82947; G0277 ==

== ENCOUNTER 2021-01-26 00:39 | Day surgery (SDC) | payer OTHER, MEDICARE | END 2021-01-26 12:00 | disposition home or self-care (01) | LOC: WOUND 00:39 | DX: E11.621 Type 2 diabetes mellitus with foot ulcer (principal); L97.525 Non-pressure chronic ulcer of other part of left foot with muscle involvement without evidence of necrosis; L89.622 Pressure ulcer of left heel, stage 2; E11.51 Type 2 diabetes mellitus with diabetic peripheral angiopathy without gangrene; Z88.0 Allergy status to penicillin; Z88.5 Allergy status to narcotic agent; Z88.8 Allergy status to other drugs, medicaments and biological substances | CPT/HCPCS: A9270 ==

== ENCOUNTER 2021-01-29 05:21 | Day surgery (SDC) | payer OTHER, MEDICARE | END 2021-01-29 22:52 | disposition home or self-care (01) | LOC: HBO 05:21 | DX: E11.621 Type 2 diabetes mellitus with foot ulcer (principal); L97.528 Non-pressure chronic ulcer of other part of left foot with other specified severity; L89.622 Pressure ulcer of left heel, stage 2; E11.51 Type 2 diabetes mellitus with diabetic peripheral angiopathy without gangrene | CPT/HCPCS: 82947; G0277 ==

== ENCOUNTER 2021-01-30 00:29 | Day surgery (SDC) | payer OTHER, MEDICARE | END 2021-01-30 23:28 | disposition home or self-care (01) | LOC: HBO 00:29 | DX: E11.621 Type 2 diabetes mellitus with foot ulcer (principal); L97.528 Non-pressure chronic ulcer of other part of left foot with other specified severity; L89.622 Pressure ulcer of left heel, stage 2; E11.51 Type 2 diabetes mellitus with diabetic peripheral angiopathy without gangrene | CPT/HCPCS: 82947; G0277 ==

== ENCOUNTER 2021-01-31 01:55 | Day surgery (SDC) | payer OTHER, MEDICARE | END 2021-01-31 23:05 | disposition home or self-care (01) | LOC: HBO 01:55 | DX: E11.621 Type 2 diabetes mellitus with foot ulcer (principal); L97.528 Non-pressure chronic ulcer of other part of left foot with other specified severity; L89.622 Pressure ulcer of left heel, stage 2; E11.51 Type 2 diabetes mellitus with diabetic peripheral angiopathy without gangrene | CPT/HCPCS: 82947; G0277 ==

== ENCOUNTER 2021-02-02 01:16 | Day surgery (SDC) | payer OTHER, MEDICARE | END 2021-02-02 23:48 | disposition home or self-care (01) | LOC: HBO 01:16 | DX: E11.621 Type 2 diabetes mellitus with foot ulcer (principal); L97.528 Non-pressure chronic ulcer of other part of left foot with other specified severity; L89.622 Pressure ulcer of left heel, stage 2; E11.51 Type 2 diabetes mellitus with diabetic peripheral angiopathy without gangrene | CPT/HCPCS: 82947; G0277 ==

== ENCOUNTER 2021-02-02 01:18 | Day surgery (SDC) | payer OTHER, MEDICARE | END 2021-02-02 23:49 | disposition home or self-care (01) | LOC: WOUND 01:18 | DX: E11.621 Type 2 diabetes mellitus with foot ulcer (principal); L97.525 Non-pressure chronic ulcer of other part of left foot with muscle involvement without evidence of necrosis; L89.622 Pressure ulcer of left heel, stage 2; E11.51 Type 2 diabetes mellitus with diabetic peripheral angiopathy without gangrene | CPT/HCPCS: A9270 ==

== ENCOUNTER 2021-02-05 02:51 | Day surgery (SDC) | payer OTHER, MEDICARE | END 2021-02-05 22:54 | disposition home or self-care (01) | LOC: HBO 02:51 | PROC: 5A05121 Extracorporeal Hyperbaric Oxygenation, Intermittent (ICD-10-PCS; principal; 2021-02-05) | DX: E11.621 Type 2 diabetes mellitus with foot ulcer (principal); L89.622 Pressure ulcer of left heel, stage 2; L97.528 Non-pressure chronic ulcer of other part of left foot with other specified severity; E11.51 Type 2 diabetes mellitus with diabetic peripheral angiopathy without gangrene | CPT/HCPCS: 82947; G0277 ==

== ENCOUNTER 2021-02-06 01:14 | Day surgery (SDC) | payer OTHER, MEDICARE | END 2021-02-06 23:04 | disposition home or self-care (01) | LOC: HBO 01:14 | DX: E11.621 Type 2 diabetes mellitus with foot ulcer (principal); L97.528 Non-pressure chronic ulcer of other part of left foot with other specified severity; L89.622 Pressure ulcer of left heel, stage 2; E11.51 Type 2 diabetes mellitus with diabetic peripheral angiopathy without gangrene | CPT/HCPCS: 82947; G0277 ==

== ENCOUNTER 2021-02-07 05:10 | Day surgery (SDC) | payer OTHER | END 2021-02-07 22:48 | disposition home or self-care (01) | LOC: HBO 05:10 | DX: E11.621 Type 2 diabetes mellitus with foot ulcer (principal); L97.528 Non-pressure chronic ulcer of other part of left foot with other specified severity; L89.622 Pressure ulcer of left heel, stage 2; E11.51 Type 2 diabetes mellitus with diabetic peripheral angiopathy without gangrene | CPT/HCPCS: 82947; G0277 ==

== ENCOUNTER 2021-02-08 00:55 | Day surgery (SDC) | payer OTHER, MEDICARE | END 2021-02-08 23:01 | disposition home or self-care (01) | LOC: HBO 00:55 | DX: E11.621 Type 2 diabetes mellitus with foot ulcer (principal); L97.528 Non-pressure chronic ulcer of other part of left foot with other specified severity; L89.622 Pressure ulcer of left heel, stage 2; E11.51 Type 2 diabetes mellitus with diabetic peripheral angiopathy without gangrene | CPT/HCPCS: 82947; G0277 ==

== ENCOUNTER 2021-02-09 04:16 | Day surgery (SDC) | payer OTHER, MEDICARE | END 2021-02-09 23:48 | disposition home or self-care (01) | LOC: WOUND 04:16 | DX: E11.621 Type 2 diabetes mellitus with foot ulcer (principal); L97.525 Non-pressure chronic ulcer of other part of left foot with muscle involvement without evidence of necrosis; L89.622 Pressure ulcer of left heel, stage 2; E11.51 Type 2 diabetes mellitus with diabetic peripheral angiopathy without gangrene | CPT/HCPCS: A9270; Q4133 ==

== ENCOUNTER 2021-02-12 03:47 | Day surgery (SDC) | payer OTHER, MEDICARE | END 2021-02-12 12:00 | disposition home or self-care (01) | LOC: HBO 03:47 | DX: E11.621 Type 2 diabetes mellitus with foot ulcer (principal); L97.528 Non-pressure chronic ulcer of other part of left foot with other specified severity; L89.622 Pressure ulcer of left heel, stage 2; E11.51 Type 2 diabetes mellitus with diabetic peripheral angiopathy without gangrene | CPT/HCPCS: 82947; G0277 ==

== ENCOUNTER 2021-02-14 04:34 | Day surgery (SDC) | payer OTHER, MEDICARE | END 2021-02-14 23:00 | disposition home or self-care (01) | LOC: HBO 04:34 | DX: E11.621 Type 2 diabetes mellitus with foot ulcer (principal); L89.622 Pressure ulcer of left heel, stage 2; L97.528 Non-pressure chronic ulcer of other part of left foot with other specified severity; I73.9 Peripheral vascular disease, unspecified | CPT/HCPCS: 82947; G0277 ==

== ENCOUNTER 2021-02-16 03:11 | Day surgery (SDC) | payer OTHER, MEDICARE | END 2021-02-16 22:55 | disposition home or self-care (01) | LOC: HBO 03:11 | DX: E11.621 Type 2 diabetes mellitus with foot ulcer (principal); L97.528 Non-pressure chronic ulcer of other part of left foot with other specified severity; L89.622 Pressure ulcer of left heel, stage 2; E11.51 Type 2 diabetes mellitus with diabetic peripheral angiopathy without gangrene | CPT/HCPCS: 82947; G0277 ==

== ENCOUNTER 2021-02-19 05:35 | Day surgery (SDC) | payer OTHER, MEDICARE | END 2021-02-19 22:51 | disposition home or self-care (01) | LOC: HBO 05:35 | DX: E11.621 Type 2 diabetes mellitus with foot ulcer (principal); L97.528 Non-pressure chronic ulcer of other part of left foot with other specified severity; L89.622 Pressure ulcer of left heel, stage 2; E11.51 Type 2 diabetes mellitus with diabetic peripheral angiopathy without gangrene | CPT/HCPCS: 82947; G0277 ==

== ENCOUNTER 2021-02-20 04:38 | Day surgery (SDC) | payer OTHER, MEDICARE ==
[2021-03-06] MEDS ORDERED: TRULICITY0.75 MG/01 (22:29)
[2021-03-06] MEDS ORDERED: FEROUS SULFATE PO (22:34)
[2021-03-06] MEDS ORDERED: PROAIR DIGIHAL90 MCG INH (22:42)
== END 2021-02-20 22:43 | disposition home or self-care (01) ==
LOC: HBO 04:38
DX: E11.621 Type 2 diabetes mellitus with foot ulcer (principal); L97.528 Non-pressure chronic ulcer of other part of left foot with other specified severity; L89.622 Pressure ulcer of left heel, stage 2; E11.51 Type 2 diabetes mellitus with diabetic peripheral angiopathy without gangrene
CPT/HCPCS: 82947; G0277

== ENCOUNTER 2021-02-23 05:22 | Day surgery (SDC) | payer OTHER, MEDICARE ==
[2021-03-06] MEDS ORDERED: TRULICITY0.75 MG/01 (22:29)
[2021-03-06] MEDS ORDERED: FEROUS SULFATE PO (22:34)
[2021-03-06] MEDS ORDERED: PROAIR DIGIHAL90 MCG INH (22:42)
== END 2021-02-23 23:36 | disposition home or self-care (01) ==
LOC: HBO 05:22
DX: E11.621 Type 2 diabetes mellitus with foot ulcer (principal); L97.528 Non-pressure chronic ulcer of other part of left foot with other specified severity; L89.622 Pressure ulcer of left heel, stage 2; E11.51 Type 2 diabetes mellitus with diabetic peripheral angiopathy without gangrene
CPT/HCPCS: 82947; G0277

== ENCOUNTER 2021-02-23 05:32 | Day surgery (SDC) | payer OTHER, MEDICARE ==
[2021-03-06] MEDS ORDERED: TRULICITY0.75 MG/01 (22:29)
[2021-03-06] MEDS ORDERED: FEROUS SULFATE PO (22:34)
[2021-03-06] MEDS ORDERED: PROAIR DIGIHAL90 MCG INH (22:42)
== END 2021-02-23 23:37 | disposition home or self-care (01) ==
LOC: WOUND 05:32
DX: E11.621 Type 2 diabetes mellitus with foot ulcer (principal); L97.528 Non-pressure chronic ulcer of other part of left foot with other specified severity; L89.622 Pressure ulcer of left heel, stage 2; E11.51 Type 2 diabetes mellitus with diabetic peripheral angiopathy without gangrene
CPT/HCPCS: A9270; G0463

== ENCOUNTER 2021-02-28 08:55 | Day surgery (SDC) | payer OTHER, MEDICARE ==
[2021-03-06] MEDS ORDERED: TRULICITY0.75 MG/01 (22:29)
[2021-03-06] MEDS ORDERED: FEROUS SULFATE PO (22:34)
[2021-03-06] MEDS ORDERED: PROAIR DIGIHAL90 MCG INH (22:42)
== END 2021-02-28 12:00 | disposition home or self-care (01) ==
LOC: HBO 08:55
DX: E11.621 Type 2 diabetes mellitus with foot ulcer (principal); L97.528 Non-pressure chronic ulcer of other part of left foot with other specified severity; L89.622 Pressure ulcer of left heel, stage 2; E11.51 Type 2 diabetes mellitus with diabetic peripheral angiopathy without gangrene
CPT/HCPCS: 82947; G0277

== ENCOUNTER 2021-03-02 05:27 | Day surgery (SDC) | payer OTHER, MEDICARE ==
[2021-03-06] MEDS ORDERED: TRULICITY0.75 MG/01 (22:29)
[2021-03-06] MEDS ORDERED: FEROUS SULFATE PO (22:34)
[2021-03-06] MEDS ORDERED: PROAIR DIGIHAL90 MCG INH (22:42)
== END 2021-03-02 23:37 | disposition home or self-care (01) ==
LOC: HBO 05:27
DX: E11.621 Type 2 diabetes mellitus with foot ulcer (principal); L97.528 Non-pressure chronic ulcer of other part of left foot with other specified severity; L89.622 Pressure ulcer of left heel, stage 2; E11.51 Type 2 diabetes mellitus with diabetic peripheral angiopathy without gangrene
CPT/HCPCS: 82947; G0277

== ENCOUNTER 2021-03-02 05:33 | Day surgery (SDC) | payer OTHER, MEDICARE ==
[2021-03-06] MEDS ORDERED: TRULICITY0.75 MG/01 (22:29)
[2021-03-06] MEDS ORDERED: FEROUS SULFATE PO (22:34)
[2021-03-06] MEDS ORDERED: PROAIR DIGIHAL90 MCG INH (22:42)
== END 2021-03-02 23:37 | disposition home or self-care (01) ==
LOC: WOUND 05:33
DX: E11.621 Type 2 diabetes mellitus with foot ulcer (principal); L97.525 Non-pressure chronic ulcer of other part of left foot with muscle involvement without evidence of necrosis; L89.622 Pressure ulcer of left heel, stage 2; E11.51 Type 2 diabetes mellitus with diabetic peripheral angiopathy without gangrene
CPT/HCPCS: A9270; Q4133

== ENCOUNTER 2021-03-08 05:29 | Day surgery (SDC) | payer OTHER, MEDICARE ==
[~2021-03-08 05:29] MED LIST changes: +FEROUS SULFATE PO; +PROAIR DIGIHAL90 MCG INH; +TRULICITY0.75 MG/01
== END 2021-03-08 23:30 | disposition home or self-care (01) ==
LOC: HBO 05:29
DX: E11.621 Type 2 diabetes mellitus with foot ulcer (principal); L97.528 Non-pressure chronic ulcer of other part of left foot with other specified severity; E11.51 Type 2 diabetes mellitus with diabetic peripheral angiopathy without gangrene; L89.622 Pressure ulcer of left heel, stage 2
CPT/HCPCS: 82947; G0277

== ENCOUNTER 2021-03-09 04:31 | Day surgery (SDC) | payer OTHER, MEDICARE | END 2021-03-09 23:33 | disposition home or self-care (01) | LOC: WOUND 04:31 | PROC: XHRPXF7 Replacement of Skin with Bioengineered Allogeneic Construct, External Approach, New Technology Group 7 (ICD-10-PCS; principal; 2021-03-09) | DX: E11.51 Type 2 diabetes mellitus with diabetic peripheral angiopathy without gangrene (principal); L97.525 Non-pressure chronic ulcer of other part of left foot with muscle involvement without evidence of necrosis; L98.495 Non-pressure chronic ulcer of skin of other sites with muscle involvement without evidence of necrosis; I70.25 Atherosclerosis of native arteries of other extremities with ulceration; L89.622 Pressure ulcer of left heel, stage 2 | CPT/HCPCS: A9270; Q4133 ==

== ENCOUNTER 2021-03-09 04:32 | Day surgery (SDC) | payer OTHER, MEDICARE | END 2021-03-09 23:33 | disposition home or self-care (01) | LOC: HBO 04:32 | DX: E11.621 Type 2 diabetes mellitus with foot ulcer (principal); L97.528 Non-pressure chronic ulcer of other part of left foot with other specified severity; L89.622 Pressure ulcer of left heel, stage 2; E11.51 Type 2 diabetes mellitus with diabetic peripheral angiopathy without gangrene | CPT/HCPCS: 82947; G0277 ==

== ENCOUNTER 2021-03-13 03:18 | Day surgery (SDC) | payer OTHER, MEDICARE | END 2021-03-13 23:38 | disposition home or self-care (01) | LOC: HBO 03:18 | DX: E11.621 Type 2 diabetes mellitus with foot ulcer (principal); L97.528 Non-pressure chronic ulcer of other part of left foot with other specified severity; L89.622 Pressure ulcer of left heel, stage 2; E11.51 Type 2 diabetes mellitus with diabetic peripheral angiopathy without gangrene | CPT/HCPCS: 82947; G0277 ==

== ENCOUNTER 2021-03-14 03:15 | Day surgery (SDC) | payer OTHER, MEDICARE | END 2021-03-14 23:51 | disposition home or self-care (01) | LOC: HBO 03:15 | DX: E11.621 Type 2 diabetes mellitus with foot ulcer (principal); L97.528 Non-pressure chronic ulcer of other part of left foot with other specified severity; L89.622 Pressure ulcer of left heel, stage 2; E11.51 Type 2 diabetes mellitus with diabetic peripheral angiopathy without gangrene | CPT/HCPCS: 82947; G0277 ==

== ENCOUNTER 2021-03-15 03:44 | Day surgery (SDC) | payer OTHER, MEDICARE | END 2021-03-15 22:50 | disposition home or self-care (01) | LOC: HBO 03:44 | DX: E11.621 Type 2 diabetes mellitus with foot ulcer (principal); L97.528 Non-pressure chronic ulcer of other part of left foot with other specified severity; L89.622 Pressure ulcer of left heel, stage 2; E11.51 Type 2 diabetes mellitus with diabetic peripheral angiopathy without gangrene | CPT/HCPCS: 82947; G0277 ==

== ENCOUNTER 2021-03-16 04:22 | Day surgery (SDC) | payer OTHER, MEDICARE | END 2021-03-16 22:57 | disposition home or self-care (01) | LOC: HBO 04:22 | DX: E11.621 Type 2 diabetes mellitus with foot ulcer (principal); L97.528 Non-pressure chronic ulcer of other part of left foot with other specified severity; L89.622 Pressure ulcer of left heel, stage 2; E11.51 Type 2 diabetes mellitus with diabetic peripheral angiopathy without gangrene | CPT/HCPCS: 82947; G0277 ==

== ENCOUNTER 2021-03-16 05:19 | Day surgery (SDC) | payer OTHER, MEDICARE | END 2021-03-16 22:57 | disposition home or self-care (01) | LOC: WOUND 05:19 | DX: E11.621 Type 2 diabetes mellitus with foot ulcer (principal); L97.528 Non-pressure chronic ulcer of other part of left foot with other specified severity; L89.622 Pressure ulcer of left heel, stage 2; E11.51 Type 2 diabetes mellitus with diabetic peripheral angiopathy without gangrene | CPT/HCPCS: A9270; Q4133 ==

== ENCOUNTER 2021-03-26 03:00 | Day surgery (SDC) | payer OTHER | END 2021-03-26 22:53 | disposition home or self-care (01) | LOC: HBO 03:00 | DX: E11.621 Type 2 diabetes mellitus with foot ulcer (principal); L89.622 Pressure ulcer of left heel, stage 2; L97.528 Non-pressure chronic ulcer of other part of left foot with other specified severity; I73.9 Peripheral vascular disease, unspecified | CPT/HCPCS: 82947; G0277; G0463 ==

== ENCOUNTER 2021-03-27 08:28 | Day surgery (SDC) | payer OTHER, MEDICARE | END 2021-03-27 22:56 | disposition home or self-care (01) | LOC: HBO 08:28 | DX: E11.621 Type 2 diabetes mellitus with foot ulcer (principal); L97.528 Non-pressure chronic ulcer of other part of left foot with other specified severity; L89.622 Pressure ulcer of left heel, stage 2; E11.51 Type 2 diabetes mellitus with diabetic peripheral angiopathy without gangrene | CPT/HCPCS: 82947; G0277 ==

== ENCOUNTER 2021-03-28 02:12 | Day surgery (SDC) | payer OTHER, MEDICARE | END 2021-03-28 23:11 | disposition home or self-care (01) | LOC: HBO 02:12 | DX: E11.621 Type 2 diabetes mellitus with foot ulcer (principal); L97.528 Non-pressure chronic ulcer of other part of left foot with other specified severity; L89.622 Pressure ulcer of left heel, stage 2; E11.51 Type 2 diabetes mellitus with diabetic peripheral angiopathy without gangrene | CPT/HCPCS: 82947; G0277 ==

== ENCOUNTER 2021-03-29 01:02 | Day surgery (SDC) | payer OTHER, MEDICARE | END 2021-03-29 23:35 | disposition home or self-care (01) | LOC: HBO 01:02 | DX: E11.621 Type 2 diabetes mellitus with foot ulcer (principal); L97.528 Non-pressure chronic ulcer of other part of left foot with other specified severity; L89.622 Pressure ulcer of left heel, stage 2; E11.51 Type 2 diabetes mellitus with diabetic peripheral angiopathy without gangrene | CPT/HCPCS: 82947; G0277 ==

== ENCOUNTER 2021-03-30 01:33 | Day surgery (SDC) | payer OTHER, MEDICARE | END 2021-03-30 12:00 | disposition home or self-care (01) | LOC: HBO 01:33 | DX: E11.621 Type 2 diabetes mellitus with foot ulcer (principal); L97.525 Non-pressure chronic ulcer of other part of left foot with muscle involvement without evidence of necrosis; L89.622 Pressure ulcer of left heel, stage 2; E11.51 Type 2 diabetes mellitus with diabetic peripheral angiopathy without gangrene | CPT/HCPCS: 82947; A9270; G0277; Q4133 ==

== ENCOUNTER 2021-03-30 08:00 | Day surgery (SDC) | payer OTHER, MEDICARE | END 2021-03-30 23:59 | disposition home or self-care (01) | LOC: WOUND 08:00 | DX: E11.621 Type 2 diabetes mellitus with foot ulcer (principal); L97.528 Non-pressure chronic ulcer of other part of left foot with other specified severity; L89.622 Pressure ulcer of left heel, stage 2; E11.51 Type 2 diabetes mellitus with diabetic peripheral angiopathy without gangrene | CPT/HCPCS: A9270; Q4133 ==

== ENCOUNTER 2021-04-02 03:47 | Day surgery (SDC) | payer OTHER, MEDICARE | END 2021-04-02 12:00 | disposition home or self-care (01) | LOC: HBO 03:47 | DX: E11.621 Type 2 diabetes mellitus with foot ulcer (principal); L97.528 Non-pressure chronic ulcer of other part of left foot with other specified severity; L89.622 Pressure ulcer of left heel, stage 2; E11.51 Type 2 diabetes mellitus with diabetic peripheral angiopathy without gangrene | CPT/HCPCS: 82947; G0277 ==

== ENCOUNTER 2021-04-03 05:49 | Day surgery (SDC) | payer OTHER, MEDICARE | END 2021-04-03 22:53 | disposition home or self-care (01) | LOC: HBO 05:49 | DX: E11.621 Type 2 diabetes mellitus with foot ulcer (principal); L97.528 Non-pressure chronic ulcer of other part of left foot with other specified severity; L89.622 Pressure ulcer of left heel, stage 2; E11.51 Type 2 diabetes mellitus with diabetic peripheral angiopathy without gangrene | CPT/HCPCS: 82947; G0277 ==

== ENCOUNTER 2021-04-06 03:03 | Day surgery (SDC) | payer OTHER, MEDICARE | END 2021-04-06 23:04 | disposition home or self-care (01) | LOC: WOUND 03:03 | DX: E11.621 Type 2 diabetes mellitus with foot ulcer (principal); L97.528 Non-pressure chronic ulcer of other part of left foot with other specified severity; L89.622 Pressure ulcer of left heel, stage 2; E11.51 Type 2 diabetes mellitus with diabetic peripheral angiopathy without gangrene | CPT/HCPCS: G0463 ==

== ENCOUNTER 2021-04-09 02:44 | Day surgery (SDC) | payer OTHER, MEDICARE | END 2021-04-09 22:51 | disposition home or self-care (01) | LOC: HBO 02:44 | DX: E11.621 Type 2 diabetes mellitus with foot ulcer (principal); L97.528 Non-pressure chronic ulcer of other part of left foot with other specified severity; L89.622 Pressure ulcer of left heel, stage 2; E11.51 Type 2 diabetes mellitus with diabetic peripheral angiopathy without gangrene | CPT/HCPCS: 82947; G0277 ==

== ENCOUNTER 2021-04-10 00:45 | Day surgery (SDC) | payer OTHER, MEDICARE | END 2021-04-10 23:06 | disposition home or self-care (01) | LOC: HBO 00:45 | DX: E11.621 Type 2 diabetes mellitus with foot ulcer (principal); L97.528 Non-pressure chronic ulcer of other part of left foot with other specified severity; L89.622 Pressure ulcer of left heel, stage 2; E11.51 Type 2 diabetes mellitus with diabetic peripheral angiopathy without gangrene | CPT/HCPCS: 82947; G0277 ==

== ENCOUNTER 2021-04-11 02:45 | Day surgery (SDC) | payer OTHER, MEDICARE | END 2021-04-11 23:06 | disposition home or self-care (01) | LOC: HBO 02:45 | DX: E11.621 Type 2 diabetes mellitus with foot ulcer (principal); L97.528 Non-pressure chronic ulcer of other part of left foot with other specified severity; L89.622 Pressure ulcer of left heel, stage 2; E11.51 Type 2 diabetes mellitus with diabetic peripheral angiopathy without gangrene | CPT/HCPCS: 82947; G0277 ==

== ENCOUNTER 2021-04-12 01:20 | Day surgery (SDC) | payer OTHER, MEDICARE | END 2021-04-12 23:31 | disposition home or self-care (01) | LOC: HBO 01:20 | DX: E11.621 Type 2 diabetes mellitus with foot ulcer (principal); L97.528 Non-pressure chronic ulcer of other part of left foot with other specified severity; L89.622 Pressure ulcer of left heel, stage 2; E11.51 Type 2 diabetes mellitus with diabetic peripheral angiopathy without gangrene | CPT/HCPCS: 82947; G0277 ==

== ENCOUNTER 2021-04-13 04:49 | Day surgery (SDC) | payer OTHER, MEDICARE | END 2021-04-13 23:54 | disposition home or self-care (01) | LOC: HBO 04:49 | DX: E11.621 Type 2 diabetes mellitus with foot ulcer (principal); L97.528 Non-pressure chronic ulcer of other part of left foot with other specified severity; L89.622 Pressure ulcer of left heel, stage 2; E11.51 Type 2 diabetes mellitus with diabetic peripheral angiopathy without gangrene | CPT/HCPCS: 82947; G0277 ==

== ENCOUNTER 2021-04-13 05:09 | Day surgery (SDC) | payer OTHER, MEDICARE | END 2021-04-13 23:54 | disposition home or self-care (01) | LOC: WOUND 05:09 | DX: E11.621 Type 2 diabetes mellitus with foot ulcer (principal); L97.522 Non-pressure chronic ulcer of other part of left foot with fat layer exposed; L89.622 Pressure ulcer of left heel, stage 2; E11.51 Type 2 diabetes mellitus with diabetic peripheral angiopathy without gangrene | CPT/HCPCS: A9270 ==

== ENCOUNTER 2021-04-16 03:25 | Day surgery (SDC) | payer OTHER, MEDICARE | END 2021-04-16 22:43 | disposition home or self-care (01) | LOC: HBO 03:25 | DX: E11.621 Type 2 diabetes mellitus with foot ulcer (principal); L97.528 Non-pressure chronic ulcer of other part of left foot with other specified severity; L89.622 Pressure ulcer of left heel, stage 2; E11.51 Type 2 diabetes mellitus with diabetic peripheral angiopathy without gangrene | CPT/HCPCS: 82947; G0277 ==

== ENCOUNTER 2021-04-17 04:14 | Day surgery (SDC) | payer OTHER, MEDICARE | END 2021-04-17 12:00 | disposition home or self-care (01) | LOC: HBO 04:14 | DX: E11.621 Type 2 diabetes mellitus with foot ulcer (principal); L97.528 Non-pressure chronic ulcer of other part of left foot with other specified severity; L89.622 Pressure ulcer of left heel, stage 2; E11.51 Type 2 diabetes mellitus with diabetic peripheral angiopathy without gangrene | CPT/HCPCS: 82947; G0277 ==

== ENCOUNTER 2021-04-19 00:42 | Day surgery (SDC) | payer OTHER, MEDICARE | END 2021-04-19 22:43 | disposition home or self-care (01) | LOC: HBO 00:42 | DX: E11.621 Type 2 diabetes mellitus with foot ulcer (principal); L97.528 Non-pressure chronic ulcer of other part of left foot with other specified severity; L89.622 Pressure ulcer of left heel, stage 2; E11.51 Type 2 diabetes mellitus with diabetic peripheral angiopathy without gangrene | CPT/HCPCS: 82947; G0277 ==

== ENCOUNTER 2021-05-04 07:35 | Day surgery (SDC) | payer OTHER, MEDICARE | END 2021-05-04 23:57 | disposition home or self-care (01) | LOC: WOUND 07:35 | DX: E11.621 Type 2 diabetes mellitus with foot ulcer (principal); L97.529 Non-pressure chronic ulcer of other part of left foot with unspecified severity; L89.622 Pressure ulcer of left heel, stage 2; E11.51 Type 2 diabetes mellitus with diabetic peripheral angiopathy without gangrene | CPT/HCPCS: A9270; G0463 ==

== ENCOUNTER 2021-05-14 02:52 | Day surgery (SDC) | payer OTHER, MEDICARE | END 2021-05-14 22:43 | disposition home or self-care (01) | LOC: HBO 02:52 | DX: E11.621 Type 2 diabetes mellitus with foot ulcer (principal); L97.528 Non-pressure chronic ulcer of other part of left foot with other specified severity; L89.622 Pressure ulcer of left heel, stage 2; E11.51 Type 2 diabetes mellitus with diabetic peripheral angiopathy without gangrene | CPT/HCPCS: 82947; G0277 ==

== ENCOUNTER 2021-05-15 05:44 | Day surgery (SDC) | payer OTHER, MEDICARE | END 2021-05-15 22:40 | disposition home or self-care (01) | LOC: HBO 05:44 | DX: E11.621 Type 2 diabetes mellitus with foot ulcer (principal); L97.528 Non-pressure chronic ulcer of other part of left foot with other specified severity; E11.51 Type 2 diabetes mellitus with diabetic peripheral angiopathy without gangrene; L89.622 Pressure ulcer of left heel, stage 2 | CPT/HCPCS: 82947; G0277 ==

== ENCOUNTER 2021-05-16 00:32 | Day surgery (SDC) | payer OTHER, MEDICARE | END 2021-05-16 22:51 | disposition home or self-care (01) | LOC: HBO 00:32 | DX: E11.621 Type 2 diabetes mellitus with foot ulcer (principal); L97.528 Non-pressure chronic ulcer of other part of left foot with other specified severity; E11.51 Type 2 diabetes mellitus with diabetic peripheral angiopathy without gangrene | CPT/HCPCS: 82947; G0277 ==

== ENCOUNTER 2021-05-17 00:28 | Day surgery (SDC) | payer OTHER, MEDICARE | END 2021-05-18 12:00 | disposition home or self-care (01) | LOC: HBO 00:28 | DX: E11.621 Type 2 diabetes mellitus with foot ulcer (principal); L97.528 Non-pressure chronic ulcer of other part of left foot with other specified severity; L89.622 Pressure ulcer of left heel, stage 2; E11.51 Type 2 diabetes mellitus with diabetic peripheral angiopathy without gangrene | CPT/HCPCS: 82947; G0277 ==

== ENCOUNTER 2021-05-18 05:06 | Day surgery (SDC) | payer OTHER, MEDICARE | END 2021-05-18 12:00 | disposition home or self-care (01) | LOC: HBO 05:06 | DX: E11.621 Type 2 diabetes mellitus with foot ulcer (principal); L89.622 Pressure ulcer of left heel, stage 2; L97.528 Non-pressure chronic ulcer of other part of left foot with other specified severity; I73.9 Peripheral vascular disease, unspecified | CPT/HCPCS: 82947; G0277 ==

== ENCOUNTER 2021-05-18 05:15 | Day surgery (SDC) | payer OTHER, MEDICARE | END 2021-05-18 12:00 | disposition home or self-care (01) | LOC: WOUND 05:15 | DX: E11.621 Type 2 diabetes mellitus with foot ulcer (principal); L97.529 Non-pressure chronic ulcer of other part of left foot with unspecified severity; E11.51 Type 2 diabetes mellitus with diabetic peripheral angiopathy without gangrene | CPT/HCPCS: A9270; G0463 ==

== ENCOUNTER 2021-05-21 03:14 | Day surgery (SDC) | payer OTHER, MEDICARE | END 2021-05-21 23:30 | disposition home or self-care (01) | LOC: HBO 03:14 | DX: E11.621 Type 2 diabetes mellitus with foot ulcer (principal); L97.528 Non-pressure chronic ulcer of other part of left foot with other specified severity; L89.622 Pressure ulcer of left heel, stage 2; E11.51 Type 2 diabetes mellitus with diabetic peripheral angiopathy without gangrene | CPT/HCPCS: 82947; G0277 ==

== ENCOUNTER 2021-05-22 03:59 | Day surgery (SDC) | payer OTHER, MEDICARE | END 2021-05-22 23:21 | disposition home or self-care (01) | LOC: HBO 03:59 | DX: E11.621 Type 2 diabetes mellitus with foot ulcer (principal); L97.528 Non-pressure chronic ulcer of other part of left foot with other specified severity; E11.51 Type 2 diabetes mellitus with diabetic peripheral angiopathy without gangrene; L89.622 Pressure ulcer of left heel, stage 2 | CPT/HCPCS: 82947; G0277 ==

== ENCOUNTER 2021-05-23 01:16 | Day surgery (SDC) | payer OTHER, MEDICARE | END 2021-05-23 23:08 | disposition home or self-care (01) | LOC: WOUND 01:16 | DX: E11.621 Type 2 diabetes mellitus with foot ulcer (principal); L97.528 Non-pressure chronic ulcer of other part of left foot with other specified severity; L89.622 Pressure ulcer of left heel, stage 2; I73.9 Peripheral vascular disease, unspecified | CPT/HCPCS: G0463 ==

== ENCOUNTER 2021-05-23 01:17 | Day surgery (SDC) | payer OTHER, MEDICARE | END 2021-05-23 23:08 | disposition home or self-care (01) | LOC: HBO 01:17 | DX: E11.621 Type 2 diabetes mellitus with foot ulcer (principal); L97.528 Non-pressure chronic ulcer of other part of left foot with other specified severity; E11.51 Type 2 diabetes mellitus with diabetic peripheral angiopathy without gangrene; L89.622 Pressure ulcer of left heel, stage 2 | CPT/HCPCS: 82947; G0277 ==

== ENCOUNTER 2021-06-08 02:01 | Day surgery (SDC) | payer OTHER | END 2021-06-08 12:00 | disposition home or self-care (01) | LOC: WOUND 02:01 | DX: E11.621 Type 2 diabetes mellitus with foot ulcer (principal); L97.522 Non-pressure chronic ulcer of other part of left foot with fat layer exposed; L89.622 Pressure ulcer of left heel, stage 2; E11.51 Type 2 diabetes mellitus with diabetic peripheral angiopathy without gangrene | CPT/HCPCS: A9270 ==

== ENCOUNTER 2021-06-15 02:56 | Day surgery (SDC) | payer OTHER | END 2021-06-15 23:15 | disposition home or self-care (01) | LOC: WOUND 02:56 | DX: E11.621 Type 2 diabetes mellitus with foot ulcer (principal); L97.522 Non-pressure chronic ulcer of other part of left foot with fat layer exposed; L89.622 Pressure ulcer of left heel, stage 2; E11.51 Type 2 diabetes mellitus with diabetic peripheral angiopathy without gangrene | CPT/HCPCS: A9270; G0463 ==

== ENCOUNTER 2021-06-22 00:38 | Day surgery (SDC) | payer OTHER | END 2021-06-22 23:58 | disposition home or self-care (01) | LOC: WOUND 00:38 | DX: E11.621 Type 2 diabetes mellitus with foot ulcer (principal); L97.522 Non-pressure chronic ulcer of other part of left foot with fat layer exposed; L89.622 Pressure ulcer of left heel, stage 2; E11.51 Type 2 diabetes mellitus with diabetic peripheral angiopathy without gangrene | CPT/HCPCS: A9270; G0463 ==

== ENCOUNTER 2021-06-25 02:48 | Day surgery (SDC) | payer OTHER | END 2021-06-25 23:39 | disposition home or self-care (01) | LOC: HBO 02:48 | DX: E11.621 Type 2 diabetes mellitus with foot ulcer (principal); L97.528 Non-pressure chronic ulcer of other part of left foot with other specified severity; L89.622 Pressure ulcer of left heel, stage 2; E11.51 Type 2 diabetes mellitus with diabetic peripheral angiopathy without gangrene | CPT/HCPCS: 82947; G0277 ==

== ENCOUNTER 2021-06-26 14:40 | Day surgery (SDC) | payer OTHER | END 2021-06-26 22:57 | disposition home or self-care (01) | LOC: HBO 14:40 | DX: E11.621 Type 2 diabetes mellitus with foot ulcer (principal); L97.528 Non-pressure chronic ulcer of other part of left foot with other specified severity; L89.622 Pressure ulcer of left heel, stage 2; E11.51 Type 2 diabetes mellitus with diabetic peripheral angiopathy without gangrene | CPT/HCPCS: 82947; G0277 ==

== ENCOUNTER 2021-06-27 02:00 | Day surgery (SDC) | payer OTHER | END 2021-06-27 23:22 | disposition home or self-care (01) | LOC: HBO 02:00 | DX: E11.621 Type 2 diabetes mellitus with foot ulcer (principal); L97.528 Non-pressure chronic ulcer of other part of left foot with other specified severity; L89.622 Pressure ulcer of left heel, stage 2; E11.51 Type 2 diabetes mellitus with diabetic peripheral angiopathy without gangrene | CPT/HCPCS: 82947; G0277 ==

== ENCOUNTER 2021-06-28 00:19 | Day surgery (SDC) | payer OTHER | END 2021-06-28 23:35 | disposition home or self-care (01) | LOC: HBO 00:19 | DX: E11.621 Type 2 diabetes mellitus with foot ulcer (principal); L97.528 Non-pressure chronic ulcer of other part of left foot with other specified severity; L89.622 Pressure ulcer of left heel, stage 2; E11.51 Type 2 diabetes mellitus with diabetic peripheral angiopathy without gangrene | CPT/HCPCS: 82947; G0277 ==

== ENCOUNTER 2021-06-29 00:54 | Day surgery (SDC) | payer OTHER | END 2021-06-29 22:54 | disposition home or self-care (01) | LOC: HBO 00:54 | DX: E11.621 Type 2 diabetes mellitus with foot ulcer (principal); L97.528 Non-pressure chronic ulcer of other part of left foot with other specified severity; E11.51 Type 2 diabetes mellitus with diabetic peripheral angiopathy without gangrene; L89.622 Pressure ulcer of left heel, stage 2 | CPT/HCPCS: 82947; G0277 ==

== ENCOUNTER 2021-06-29 01:12 | Day surgery (SDC) | payer OTHER | END 2021-06-29 22:54 | disposition home or self-care (01) | LOC: WOUND 01:12 | DX: E11.621 Type 2 diabetes mellitus with foot ulcer (principal); L97.522 Non-pressure chronic ulcer of other part of left foot with fat layer exposed; L89.622 Pressure ulcer of left heel, stage 2; E11.51 Type 2 diabetes mellitus with diabetic peripheral angiopathy without gangrene; H92.21 Otorrhagia, right ear | CPT/HCPCS: A9270; G0463 ==

== ENCOUNTER 2021-07-03 05:54 | Day surgery (SDC) | payer OTHER | END 2021-07-03 23:57 | disposition home or self-care (01) | LOC: HBO 05:54 | DX: E11.621 Type 2 diabetes mellitus with foot ulcer (principal); L97.528 Non-pressure chronic ulcer of other part of left foot with other specified severity; L89.622 Pressure ulcer of left heel, stage 2; E11.51 Type 2 diabetes mellitus with diabetic peripheral angiopathy without gangrene | CPT/HCPCS: 82947; G0277 ==

== ENCOUNTER 2021-07-04 03:17 | Day surgery (SDC) | payer OTHER | END 2021-07-04 23:03 | disposition home or self-care (01) | LOC: HBO 03:17 | DX: E11.621 Type 2 diabetes mellitus with foot ulcer (principal); L97.528 Non-pressure chronic ulcer of other part of left foot with other specified severity; E11.51 Type 2 diabetes mellitus with diabetic peripheral angiopathy without gangrene; L89.622 Pressure ulcer of left heel, stage 2 | CPT/HCPCS: 82947; G0277 ==

== ENCOUNTER 2021-07-05 00:24 | Day surgery (SDC) | payer OTHER | END 2021-07-05 23:17 | disposition home or self-care (01) | LOC: HBO 00:24 | DX: E11.621 Type 2 diabetes mellitus with foot ulcer (principal); L97.528 Non-pressure chronic ulcer of other part of left foot with other specified severity; E11.51 Type 2 diabetes mellitus with diabetic peripheral angiopathy without gangrene; L89.622 Pressure ulcer of left heel, stage 2 | CPT/HCPCS: 82947; G0277 ==

== ENCOUNTER 2021-07-06 00:27 | Day surgery (SDC) | payer OTHER | END 2021-07-06 23:59 | disposition home or self-care (01) | LOC: HBO 00:27 | DX: E11.621 Type 2 diabetes mellitus with foot ulcer (principal); L97.528 Non-pressure chronic ulcer of other part of left foot with other specified severity; L89.622 Pressure ulcer of left heel, stage 2; E11.51 Type 2 diabetes mellitus with diabetic peripheral angiopathy without gangrene | CPT/HCPCS: 82947; G0277 ==

== ENCOUNTER 2021-07-06 00:32 | Day surgery (SDC) | payer OTHER | END 2021-07-06 23:59 | disposition home or self-care (01) | LOC: WOUND 00:32 | DX: E11.621 Type 2 diabetes mellitus with foot ulcer (principal); L97.522 Non-pressure chronic ulcer of other part of left foot with fat layer exposed; L89.622 Pressure ulcer of left heel, stage 2; L97.528 Non-pressure chronic ulcer of other part of left foot with other specified severity; E11.51 Type 2 diabetes mellitus with diabetic peripheral angiopathy without gangrene | CPT/HCPCS: A9270; G0463 ==

== ENCOUNTER 2021-07-09 02:15 | Day surgery (SDC) | payer OTHER ==
[2021-07-10] MEDS ORDERED: ONDA4 PO (12:22)
[2021-07-10] MEDS ORDERED: LINE600 PO (12:22)
[2021-07-10] MEDS ORDERED: Ativan1 MG PO (12:23)
[2021-07-10] MEDS ORDERED: TOUJEO SOL300 UNIT/2 SC (12:24)
[2021-07-10] MEDS ORDERED: ASCO500 PO (12:25)
[2021-07-10] MEDS ORDERED: ZINC220 PO (12:25)
[2021-07-10] MEDS ORDERED: Vitamin D1000 UNI1 (12:26)
[2021-07-10] MEDS ORDERED: MECL25 PO (16:27)
== END 2021-07-09 22:44 | disposition home or self-care (01) ==
LOC: HBO 02:15
DX: E11.621 Type 2 diabetes mellitus with foot ulcer (principal); L89.622 Pressure ulcer of left heel, stage 2; L97.528 Non-pressure chronic ulcer of other part of left foot with other specified severity; E11.51 Type 2 diabetes mellitus with diabetic peripheral angiopathy without gangrene
CPT/HCPCS: 82947; G0277

== ENCOUNTER 2021-07-10 04:53 | Day surgery (SDC) | payer OTHER ==
[2021-07-10] MEDS ORDERED: LINE600 PO (12:22)
[2021-07-10] MEDS ORDERED: ONDA4 PO (12:22)
[2021-07-10] MEDS ORDERED: Ativan1 MG PO (12:23)
[2021-07-10] MEDS ORDERED: TOUJEO SOL300 UNIT/2 SC (12:24)
[2021-07-10] MEDS ORDERED: ASCO500 PO (12:25)
[2021-07-10] MEDS ORDERED: ZINC220 PO (12:25)
[2021-07-10] MEDS ORDERED: Vitamin D1000 UNI1 PO (12:26)
[2021-07-10] MEDS ORDERED: MECL25 PO (16:27)
== END 2021-07-10 23:53 | disposition home or self-care (01) ==
LOC: HBO 04:53
DX: E11.621 Type 2 diabetes mellitus with foot ulcer (principal); L97.528 Non-pressure chronic ulcer of other part of left foot with other specified severity; L89.622 Pressure ulcer of left heel, stage 2; E11.51 Type 2 diabetes mellitus with diabetic peripheral angiopathy without gangrene
CPT/HCPCS: 36415; 71046; 80053; 82947; 83735; 83880; 84484; 85025; 93005; 93010; 99284-25; G0277; J7030; J7120

== ENCOUNTER 2021-07-10 10:13 | Emergency (ER) | payer OTHER ==
[~2021-07-10] VITALS: Ht 185.4 cm; Wt 104.3 kg
[2021-07-10 10:53] LABS: BASOPHILS ABSOLUTE AUTO 0.06 K/mm3 (0.00-0.23); BASOPHILS PERCENT AUTO 1 % (0-2); EOSINOPHILS PERCENT AUTO 2 % (0-6); Hematocrit 40.6 % (37.0-53.0); Hemoglobin 12.8 g/dL (13.5-17.5); IMMATURE GRAN ABSOLUTE AUTO 0.03 K/mm3 (0.00-0.10); IMMATURE GRAN PERCENT AUTO 0 % (0-1); LYMPHOCYTES ABSOLUTE AUTO 1.38 K/mm3 (0.84-5.20); LYMPHOCYTES PERCENT AUTO 20 % (21-46); MONOCYTES ABSOLUTE AUTO 0.43 K/mm3 (0.16-1.47); MONOCYTES PERCENT AUTO 6 % (4-13); Mean Corpuscular HGB 29.8 pg (26.0-34.0); Mean Corpuscular HGB Conc 31.5 g/dL (31.5-36.5); Mean Corpuscular Volume 94 fL (80-100); Mean Platelet Volume 11.8 fL (9.1-12.4); NEUTROPHILS ABSOLUTE AUTO 4.82 K/mm3 (1.96-9.15); NEUTROPHILS PERCENT AUTO 71 % (41-73); Platelet Count 159 K/mm3 (150-400); RDW Coefficient Variation 14.9 % (11.7-14.2); RDW Standard Deviation 51.8 fL (35.1-46.3); White Blood Cell Count 6.82 K/mm3 (4.00-11.30)
[2021-07-10 11:13] LABS: Albumin, Blood 3.3 g/dL (3.4-5.0); Albumin/Globulin Ratio 0.9 (0.8-1.8); Bilirubin, Total 0.5 mg/dL (0.1-1.0); Bun/Creatinine Ratio 24.1 (12.0-20.0); Calcium, Blood 9.1 mg/dL (8.5-10.1); Creatinine, Blood 1.62 mg/dL (0.60-1.20); Globulin, Blood 3.6 g/dL (2.2-4.0); Potassium, Blood 4.6 mmol/L (3.5-5.5); Total Protein, Blood 6.9 g/dL (6.4-8.2)
[2021-07-10 11:23] LABS: Magnesium, Blood 2.6 mg/dL (1.6-2.4)
[2021-07-10] MEDS ORDERED: ONDA4 PO (12:22)
[2021-07-10] MEDS ORDERED: LINE600 PO (12:22)
[2021-07-10] MEDS ORDERED: Ativan1 MG PO (12:23)
[2021-07-10] MEDS ORDERED: TOUJEO SOL300 UNIT/2 SC (12:24)
[2021-07-10] MEDS ORDERED: ASCO500 PO (12:25)
[2021-07-10] MEDS ORDERED: ZINC220 PO (12:25)
[2021-07-10] MEDS ORDERED: Vitamin D1000 UNI1 PO (12:26)
[2021-07-10] MEDS ORDERED: MECL25 PO (16:27)
== END 2021-07-10 17:00 | disposition home or self-care (01) ==
LOC: ER 10:13
PROVIDERS: Student in an Organized Health Care Education/Training Program
DX: N17.9 Acute kidney failure, unspecified (principal); E86.0 Dehydration; R00.1 Bradycardia, unspecified; E03.9 Hypothyroidism, unspecified; E78.5 Hyperlipidemia, unspecified; E11.22 Type 2 diabetes mellitus with diabetic chronic kidney disease; N18.30 Chronic kidney disease, stage 3 unspecified; J44.9 Chronic obstructive pulmonary disease, unspecified; Z79.899 Other long term (current) drug therapy; Z88.0 Allergy status to penicillin; Z88.8 Allergy status to other drugs, medicaments and biological substances
CPT/HCPCS: 36415; 71046; 80053; 83735; 83880; 84484; 85025; 93005; 93010; 99284-25; J7030; J7120

== ENCOUNTER 2021-07-13 02:25 | Day surgery (SDC) | payer OTHER ==
[~2021-07-13 02:25] MED LIST changes: +MECL25 PO; +ONDA4 PO; +TOUJEO SOL300 UNIT/2 SC; +Vitamin D1000 UNI1 PO; +ZINC220 PO
== END 2021-07-13 23:29 | disposition home or self-care (01) ==
LOC: HBO 02:25
DX: E11.621 Type 2 diabetes mellitus with foot ulcer (principal); L97.528 Non-pressure chronic ulcer of other part of left foot with other specified severity; L89.622 Pressure ulcer of left heel, stage 2; E11.51 Type 2 diabetes mellitus with diabetic peripheral angiopathy without gangrene
CPT/HCPCS: 82947; G0277

== ENCOUNTER 2021-07-13 02:28 | Day surgery (SDC) | payer OTHER | END 2021-07-13 23:29 | disposition home or self-care (01) | LOC: WOUND 02:28 | DX: E11.621 Type 2 diabetes mellitus with foot ulcer (principal); L97.522 Non-pressure chronic ulcer of other part of left foot with fat layer exposed; E11.51 Type 2 diabetes mellitus with diabetic peripheral angiopathy without gangrene | CPT/HCPCS: A9270; G0463 ==

== ENCOUNTER 2021-07-16 01:11 | Day surgery (SDC) | payer OTHER ==
[~2021-07-16 01:11] MED LIST changes: +Vitamin D1000 UNI1; -Vitamin D1000 UNI1 PO
== END 2021-07-16 23:39 | disposition home or self-care (01) ==
LOC: HBO 01:11
DX: E11.621 Type 2 diabetes mellitus with foot ulcer (principal); L97.528 Non-pressure chronic ulcer of other part of left foot with other specified severity; E11.51 Type 2 diabetes mellitus with diabetic peripheral angiopathy without gangrene; L89.622 Pressure ulcer of left heel, stage 2
CPT/HCPCS: 82947; G0277

== ENCOUNTER 2021-07-17 15:07 | Emergency (ER) | payer MEDICARE, OTHER ==
[~2021-07-17] VITALS: Ht 182.9 cm; Wt 120.2 kg
== END 2021-07-17 17:50 | disposition home or self-care (01) ==
LOC: ER 15:07
DX: S09.90XA Unspecified injury of head, initial encounter (principal); S33.5XXA Sprain of ligaments of lumbar spine, initial encounter; E11.22 Type 2 diabetes mellitus with diabetic chronic kidney disease; N18.30 Chronic kidney disease, stage 3 unspecified; J44.9 Chronic obstructive pulmonary disease, unspecified; E03.9 Hypothyroidism, unspecified; E78.5 Hyperlipidemia, unspecified; Z88.0 Allergy status to penicillin; Z79.899 Other long term (current) drug therapy; W18.30XA Fall on same level, unspecified, initial encounter
CPT/HCPCS: 70450; 72100; 99284-25; A9270

== ENCOUNTER 2021-07-24 02:17 | Day surgery (SDC) | payer OTHER | END 2021-07-24 22:59 | disposition home or self-care (01) | LOC: HBO 02:17 | DX: E11.621 Type 2 diabetes mellitus with foot ulcer (principal); L89.622 Pressure ulcer of left heel, stage 2; L97.528 Non-pressure chronic ulcer of other part of left foot with other specified severity; E11.51 Type 2 diabetes mellitus with diabetic peripheral angiopathy without gangrene | CPT/HCPCS: 82947; G0277 ==

== ENCOUNTER 2021-07-25 00:36 | Day surgery (SDC) | payer OTHER, MEDICARE | END 2021-07-25 23:02 | disposition home or self-care (01) | LOC: HBO 00:36 | DX: E11.621 Type 2 diabetes mellitus with foot ulcer (principal); L97.528 Non-pressure chronic ulcer of other part of left foot with other specified severity; L89.622 Pressure ulcer of left heel, stage 2; E11.51 Type 2 diabetes mellitus with diabetic peripheral angiopathy without gangrene | CPT/HCPCS: 82947; G0277 ==

== ENCOUNTER 2021-07-26 03:32 | Day surgery (SDC) | payer OTHER | END 2021-07-26 23:34 | disposition home or self-care (01) | LOC: HBO 03:32 | DX: E11.621 Type 2 diabetes mellitus with foot ulcer (principal); L97.528 Non-pressure chronic ulcer of other part of left foot with other specified severity; L89.622 Pressure ulcer of left heel, stage 2; E11.51 Type 2 diabetes mellitus with diabetic peripheral angiopathy without gangrene | CPT/HCPCS: 82947; G0277 ==

== ENCOUNTER 2021-07-27 01:13 | Day surgery (SDC) | payer OTHER | END 2021-07-27 23:35 | disposition home or self-care (01) | LOC: HBO 01:13 | DX: E11.621 Type 2 diabetes mellitus with foot ulcer (principal); L97.528 Non-pressure chronic ulcer of other part of left foot with other specified severity; L89.622 Pressure ulcer of left heel, stage 2; E11.51 Type 2 diabetes mellitus with diabetic peripheral angiopathy without gangrene | CPT/HCPCS: 82947; G0277 ==

== ENCOUNTER 2021-07-27 01:24 | Day surgery (SDC) | payer OTHER, MEDICARE | END 2021-07-27 23:36 | disposition home or self-care (01) | LOC: WOUND 01:24 | DX: E11.621 Type 2 diabetes mellitus with foot ulcer (principal); L97.522 Non-pressure chronic ulcer of other part of left foot with fat layer exposed; L89.622 Pressure ulcer of left heel, stage 2; E11.51 Type 2 diabetes mellitus with diabetic peripheral angiopathy without gangrene | CPT/HCPCS: A9270; G0463 ==

== ENCOUNTER 2021-08-10 02:38 | Day surgery (SDC) | payer OTHER | END 2021-08-10 23:22 | disposition home or self-care (01) | LOC: WOUND 02:38 | DX: E11.621 Type 2 diabetes mellitus with foot ulcer (principal); L97.522 Non-pressure chronic ulcer of other part of left foot with fat layer exposed; L89.622 Pressure ulcer of left heel, stage 2; E11.51 Type 2 diabetes mellitus with diabetic peripheral angiopathy without gangrene | CPT/HCPCS: 82947; G0463 ==

== ENCOUNTER 2021-08-10 11:41 | Inpatient (IN) | payer OTHER ==
[~2021-08-10] VITALS: Ht 185.4 cm; Wt 124.3 kg
[2021-08-10 12:37] LABS: BASOPHILS ABSOLUTE AUTO 0.03 K/mm3 (0.00-0.23); BASOPHILS PERCENT AUTO 1 % (0-2); EOSINOPHILS ABSOLUTE AUTO 0.06 K/mm3 (0.00-0.68); EOSINOPHILS PERCENT AUTO 1 % (0-6); Hematocrit 21.7 % (37.0-53.0); Hemoglobin 6.4 g/dL (13.5-17.5); IMMATURE GRAN ABSOLUTE AUTO 0.09 K/mm3 (0.00-0.10); IMMATURE GRAN PERCENT AUTO 1 % (0-1); LYMPHOCYTES ABSOLUTE AUTO 0.89 K/mm3 (0.84-5.20); LYMPHOCYTES PERCENT AUTO 14 % (21-46); MONOCYTES PERCENT AUTO 5 % (4-13); Mean Corpuscular HGB 32.8 pg (26.0-34.0); Mean Corpuscular HGB Conc 29.5 g/dL (31.5-36.5); Mean Corpuscular Volume 111 fL (80-100); Mean Platelet Volume 11.2 fL (9.1-12.4); NEUTROPHILS ABSOLUTE AUTO 5.24 K/mm3 (1.96-9.15); NEUTROPHILS PERCENT AUTO 79 % (41-73); NRBC ABSOLUTE 0.03 K/mm3 (0.00-0.02); NRBC Auto 0.5 /100 WBC (0.0-0.2); Platelet Count 183 K/mm3 (150-400); RDW Coefficient Variation 22.8 % (11.7-14.2); RDW Standard Deviation 86.8 fL (35.1-46.3); Red Blood Cell Count 1.95 M/mm3 (4.30-5.90); White Blood Cell Count 6.61 K/mm3 (4.00-11.30)
[2021-08-10 13:02] LABS: Albumin, Blood 2.9 g/dL (3.4-5.0); Albumin/Globulin Ratio 0.9 (0.8-1.8); Bilirubin, Total 0.6 mg/dL (0.1-1.0); Bun/Creatinine Ratio 27.3 (12.0-20.0); Calcium, Blood 8.6 mg/dL (8.5-10.1); Creatinine, Blood 1.32 mg/dL (0.60-1.20); Globulin, Blood 3.2 g/dL (2.2-4.0); Total Protein, Blood 6.1 g/dL (6.4-8.2)
[2021-08-10 14:58] LABS: Influenza A, PCR NEGATIVE (NEGATIVE); Influenza B, PCR NEGATIVE (NEGATIVE); Resp Syncytial Virus, PCR NEGATIVE (NEGATIVE); SARS-Cov-2 (COVID-19) PCR, MMC NEGATIVE (NEGATIVE)
[2021-08-10 19:40] LABS: Source, Urine Clean Catch
[2021-08-10 19:46] LABS: Appearance, Urine Clear (Clear); Bilirubin, Urine Neg (Neg); Blood, Urine Neg (Neg); Color, Urine Yellow (P-Yellow); Glucose Qualitative, Urine 4+ (Neg); Ketones, Urine 2+ (Neg); Leukocyte Esterase, Urine Neg (Neg); Nitrite, Urine Neg (Neg); Protein, Urine Neg (Neg); Specific Gravity, Urine 1.015 (1.003-1.022); Urobilinogen, Urine NORM (Normal)
[2021-08-11 05:06] LABS: BASOPHILS ABSOLUTE AUTO 0.04 K/mm3 (0.00-0.23); BASOPHILS PERCENT AUTO 1 % (0-2); EOSINOPHILS ABSOLUTE AUTO 0.07 K/mm3 (0.00-0.68); EOSINOPHILS PERCENT AUTO 1 % (0-6); Hematocrit 19.9 % (37.0-53.0); IMMATURE GRAN ABSOLUTE AUTO 0.07 K/mm3 (0.00-0.10); IMMATURE GRAN PERCENT AUTO 1 % (0-1); LYMPHOCYTES ABSOLUTE AUTO 1.45 K/mm3 (0.84-5.20); LYMPHOCYTES PERCENT AUTO 25 % (21-46); MONOCYTES ABSOLUTE AUTO 0.33 K/mm3 (0.16-1.47); MONOCYTES PERCENT AUTO 6 % (4-13); Mean Corpuscular HGB 31.2 pg (26.0-34.0); Mean Corpuscular HGB Conc 29.1 g/dL (31.5-36.5); Mean Corpuscular Volume 107 fL (80-100); Mean Platelet Volume 11.1 fL (9.1-12.4); NEUTROPHILS ABSOLUTE AUTO 3.77 K/mm3 (1.96-9.15); NEUTROPHILS PERCENT AUTO 66 % (41-73); NRBC ABSOLUTE 0.03 K/mm3 (0.00-0.02); NRBC Auto 0.5 /100 WBC (0.0-0.2); Platelet Count 164 K/mm3 (150-400); RDW Coefficient Variation 24.1 % (11.7-14.2); RDW Standard Deviation 89.1 fL (35.1-46.3); Red Blood Cell Count 1.86 M/mm3 (4.30-5.90); White Blood Cell Count 5.73 K/mm3 (4.00-11.30)
[2021-08-11 05:11] LABS: Hemoglobin 5.8 g/dL (13.5-17.5)
[2021-08-11 05:51] LABS: Alanine Aminotransfer (ALT/SGP 19 U/L (12-78); Albumin, Blood 2.5 g/dL (3.4-5.0); Alk Phos 48 U/L (50-136); Anion Gap 4 mmol/L (6-16); Aspartate Aminotrans (AST/SGOT 18 U/L (12-37); Bilirubin, Total 0.4 mg/dL (0.1-1.0); Blood Urea Nitrogen 30 mg/dL (8-24); Bun/Creatinine Ratio 26.8 (12.0-20.0); CO2, Blood 24 mmol/L (21-32); Calcium, Blood 7.9 mg/dL (8.5-10.1); Chloride, Blood 113 mmol/L (98-108); Creatinine, Blood 1.12 mg/dL (0.60-1.20); Globulin, Blood 2.6 g/dL (2.2-4.0); Glomerular Filtration Rate >60 (60-); Glucose, Blood 109 mg/dL (70-99); Potassium, Blood 3.7 mmol/L (3.5-5.5); Sodium, Blood 141 mmol/L (136-145); Total Protein, Blood 5.1 g/dL (6.4-8.2)
--- NOTE | 2021-08-11 06:33 | NUR ---
SHIFT SUMMARY PT ADMITTED TO ROOM 341 FROM ER. PT A/O X 4, LUNGS CLEAR, MIAN ROOM AIR, CPAP AT NIGHT USING HOME MACHINE. NO BM OR RECTAL BLEEDING NOTED THIS SHIFT, PT STATES LAST BM WAS SEVERAL DAYS AGO. NO C/O NAUSEA OR EMESIS. MED PER MAR FOR C/O CHRONIC PAIN TO L FOOT AND BACK. DRSG C/D/I TO L FOOT, HGB 5.8 THIS AM, PT HAD RECEIVED 1 UNIT PRBC'S IN ER YESTERDAY FOR HGB OF 6.4. MD NOTIFIED AND ORDER FOR 1 MORE UNIT PRBC'S RECEIVED. TRANSFUSION STARTED AT 0555, NO S/S OF REACTION, MIAN WELL SO FAR. VSS, PLANNED GI SCOPE FRIDAY, ANTICIPATE D/C WHEN MEDICALLY STABLE.
[2021-08-11 11:21] LABS: Hematocrit 22.6 % (37.0-53.0); Hemoglobin 6.8 g/dL (13.5-17.5)
[2021-08-11 17:49] LABS: Hematocrit 20.8 % (37.0-53.0); Hemoglobin 6.4 g/dL (13.5-17.5)
[2021-08-12 02:04] LABS: Anion Gap 4 mmol/L (6-16); Blood Urea Nitrogen 24 mg/dL (8-24); Bun/Creatinine Ratio 23.8 (12.0-20.0); CO2, Blood 24 mmol/L (21-32); Calcium, Blood 8.2 mg/dL (8.5-10.1); Chloride, Blood 113 mmol/L (98-108); Creatinine, Blood 1.01 mg/dL (0.60-1.20); Glomerular Filtration Rate >60 (60-); Glucose, Blood 137 mg/dL (70-99); Hematocrit 23.3 % (37.0-53.0); Hemoglobin 7.2 g/dL (13.5-17.5); Sodium, Blood 141 mmol/L (136-145)
--- NOTE | 2021-08-12 06:19 | NUR ---
SHIFT SUMMARY PT RESTED WELL, RECEIVED 1 UNIT PRBC'S AT BEGINNING OF SHIFT FOR HGB OF 6.4. HGB IMPROVED TO 7.2 THIS AM. VSS, VOIDING WITHOUT DIFFICULTY, PT MIAN H20 DURING THE NIGHT, UGI SCOPE SCHEDULED FOR THIS AM TO CHECK FOR BLEEDING. DRSG TO L FOOT C/D/I, MED PER JUN FOR C/O CHRONIC FOOT PAIN. ANTICIPATE D/C WHEN MEDICALLY STABLE.
--- NOTE | 2021-08-12 09:03 | NUR ---
08/12/21 0903 Ky Khan See Anesthesia record DR PARHAM.
[2021-08-12 09:56] LABS: Hematocrit 25.5 % (37.0-53.0)
[2021-08-12] MEDS ORDERED: PANT40 PO (15:54)
== END 2021-08-12 17:27 | disposition home or self-care (01) | DRG 394 ==
LOC: ER 11:41 → MEDS 18:56
PROVIDERS: Emergency Medicine; Internal Medicine Gastroenterology; Physician Assistant; ADMIT Internal Medicine
PROC: 30233N1 Transfusion of Nonautologous Red Blood Cells into Peripheral Vein, Percutaneous Approach (ICD-10-PCS; principal; 2021-08-10)
PROC: 0W3P8ZZ Control Bleeding in Gastrointestinal Tract, Via Natural or Artificial Opening Endoscopic (ICD-10-PCS; 2021-08-12)
PROC: 0DB68ZX Excision of Stomach, Via Natural or Artificial Opening Endoscopic, Diagnostic (ICD-10-PCS; 2021-08-12 08:00)
DX: K31.7 Polyp of stomach and duodenum (principal); D62 Acute posthemorrhagic anemia; N17.9 Acute kidney failure, unspecified; K59.00 Constipation, unspecified; I48.0 Paroxysmal atrial fibrillation; I25.10 Atherosclerotic heart disease of native coronary artery without angina pectoris; E78.5 Hyperlipidemia, unspecified; Z20.822 Contact with and (suspected) exposure to COVID-19; E03.9 Hypothyroidism, unspecified; E11.51 Type 2 diabetes mellitus with diabetic peripheral angiopathy without gangrene; J44.9 Chronic obstructive pulmonary disease, unspecified; E11.42 Type 2 diabetes mellitus with diabetic polyneuropathy; E11.622 Type 2 diabetes mellitus with other skin ulcer; M54.16 Radiculopathy, lumbar region; F32.A Depression, unspecified; I12.9 Hypertensive chronic kidney disease with stage 1 through stage 4 chronic kidney disease, or unspecified chronic kidney disease; E66.01 Morbid (severe) obesity due to excess calories; G47.33 Obstructive sleep apnea (adult) (pediatric); N18.30 Chronic kidney disease, stage 3 unspecified; E11.22 Type 2 diabetes mellitus with diabetic chronic kidney disease; I35.0 Nonrheumatic aortic (valve) stenosis; Z79.890 Hormone replacement therapy; Z86.73 Personal history of transient ischemic attack (TIA), and cerebral infarction without residual deficits; Z79.01 Long term (current) use of anticoagulants; Z86.010 Personal history of colon polyps; Z68.36 Body mass index [BMI] 36.0-36.9, adult; Z79.899 Other long term (current) drug therapy; Z79.4 Long term (current) use of insulin; Z98.890 Other specified postprocedural states; Z79.82 Long term (current) use of aspirin; Z87.891 Personal history of nicotine dependence; Z88.0 Allergy status to penicillin; Z88.8 Allergy status to other drugs, medicaments and biological substances; Z88.5 Allergy status to narcotic agent; Z95.1 Presence of aortocoronary bypass graft; Z95.820 Peripheral vascular angioplasty status with implants and grafts
CPT/HCPCS: 0241U; 36415; 36430; 74177; 80048; 80053; 81003; 82947; 83605; 85014; 85018; 85025; 86850; 86900; 86901; 86923; 87040; 87086; 88305; 88342; 93005; 93010; 94640; 94660; 94664; 94760; 94762; 96374; 96375; 97161; 97530; 99285-25; A9270; C9113; J1815; J2704; J3010; J7030; J7120; P9016; Q9967

== ENCOUNTER 2021-08-17 20:34 | Inpatient (IN) | payer OTHER ==
[~2021-08-17] VITALS: Ht 185.4 cm; Wt 114.9 kg
[~2021-08-17 20:34] MED LIST changes: -Vitamin D1000 UNI1; +Vitamin D1000 UNI1 PO
[2021-08-17 21:13] LABS: BASOPHILS ABSOLUTE AUTO 0.03 K/mm3 (0.00-0.23); BASOPHILS PERCENT AUTO 0 % (0-2); EOSINOPHILS ABSOLUTE AUTO 0.03 K/mm3 (0.00-0.68); EOSINOPHILS PERCENT AUTO 0 % (0-6); Hemoglobin 6.9 g/dL (13.5-17.5); IMMATURE GRAN ABSOLUTE AUTO 0.06 K/mm3 (0.00-0.10); IMMATURE GRAN PERCENT AUTO 1 % (0-1); LYMPHOCYTES PERCENT AUTO 12 % (21-46); MONOCYTES ABSOLUTE AUTO 0.37 K/mm3 (0.16-1.47); MONOCYTES PERCENT AUTO 5 % (4-13); Mean Corpuscular HGB 29.9 pg (26.0-34.0); Mean Corpuscular HGB Conc 28.8 g/dL (31.5-36.5); Mean Corpuscular Volume 104 fL (80-100); Mean Platelet Volume 10.8 fL (9.1-12.4); NEUTROPHILS ABSOLUTE AUTO 6.46 K/mm3 (1.96-9.15); NEUTROPHILS PERCENT AUTO 82 % (41-73); Platelet Count 238 K/mm3 (150-400); RDW Standard Deviation 71.3 fL (35.1-46.3); Red Blood Cell Count 2.31 M/mm3 (4.30-5.90); White Blood Cell Count 7.85 K/mm3 (4.00-11.30)
[2021-08-17] MEDS ORDERED: ATOR40TA PO (21:35)
[2021-08-17 21:36] LABS: Alanine Aminotransfer (ALT/SGP 24 U/L (12-78); Albumin, Blood 3.1 g/dL (3.4-5.0); Alk Phos 58 U/L (50-136); Anion Gap 7 mmol/L (6-16); Aspartate Aminotrans (AST/SGOT 31 U/L (12-37); Bilirubin, Total 0.5 mg/dL (0.1-1.0); Blood Urea Nitrogen 31 mg/dL (8-24); Bun/Creatinine Ratio 27.7 (12.0-20.0); CO2, Blood 24 mmol/L (21-32); Calcium, Blood 8.9 mg/dL (8.5-10.1); Chloride, Blood 108 mmol/L (98-108); Creatinine, Blood 1.12 mg/dL (0.60-1.20); Globulin, Blood 3.2 g/dL (2.2-4.0); Glomerular Filtration Rate >60 (60-); Glucose, Blood 152 mg/dL (70-99); Potassium, Blood 4.3 mmol/L (3.5-5.5); Sodium, Blood 139 mmol/L (136-145); Total Protein, Blood 6.3 g/dL (6.4-8.2)
[2021-08-17] MEDS ORDERED: CIPRODEX OTIC7.5 M1 (21:36)
[2021-08-17] MEDS ORDERED: DICLOFENAC SOD100 GM (21:37)
[2021-08-17] MEDS ORDERED: POTCHL20ER PO (21:42)
[2021-08-17] MEDS ORDERED: PREG100 PO (21:42)
[2021-08-17] MEDS ORDERED: TRULICITY0.75 MG/01 SQ (21:44)
[2021-08-17] MEDS ORDERED: TORSE20 PO (21:44)
[2021-08-17] MEDS ORDERED: TOUJEO MAX300 UNIT/2 SC (21:45)
[2021-08-18 01:24] LABS: Hematocrit 22.9 % (37.0-53.0); Hemoglobin 6.8 g/dL (13.5-17.5)
--- NOTE | 2021-08-18 03:14 | NUR ---
ADMISSION: ASSUMED CARE OF PATIENT FROM ER. SECOND UNIT OF BLOOD IS INFUSING. PATIENT IS ABLE TO AMB. FOR STRETCHER TO BED. VSS PATIENT REPORTS WEAKNESS AND DIZZINESS. PATIENT IS ORIENTED TO ROOM AND CALL AREVALO. BED ALARM IS ON FOR SAFETY.
[2021-08-18 05:26] LABS: BASOPHILS ABSOLUTE AUTO 0.05 K/mm3 (0.00-0.23); BASOPHILS PERCENT AUTO 1 % (0-2); EOSINOPHILS ABSOLUTE AUTO 0.03 K/mm3 (0.00-0.68); EOSINOPHILS PERCENT AUTO 1 % (0-6); Hematocrit 25.2 % (37.0-53.0); Hemoglobin 7.6 g/dL (13.5-17.5); IMMATURE GRAN ABSOLUTE AUTO 0.04 K/mm3 (0.00-0.10); IMMATURE GRAN PERCENT AUTO 1 % (0-1); LYMPHOCYTES ABSOLUTE AUTO 1.26 K/mm3 (0.84-5.20); LYMPHOCYTES PERCENT AUTO 23 % (21-46); MONOCYTES ABSOLUTE AUTO 0.35 K/mm3 (0.16-1.47); MONOCYTES PERCENT AUTO 6 % (4-13); Mean Corpuscular HGB 30.3 pg (26.0-34.0); Mean Corpuscular HGB Conc 30.2 g/dL (31.5-36.5); Mean Corpuscular Volume 100 fL (80-100); Mean Platelet Volume 10.7 fL (9.1-12.4); NEUTROPHILS ABSOLUTE AUTO 3.88 K/mm3 (1.96-9.15); NEUTROPHILS PERCENT AUTO 69 % (41-73); Platelet Count 168 K/mm3 (150-400); RDW Coefficient Variation 19.7 % (11.7-14.2); RDW Standard Deviation 70.1 fL (35.1-46.3); Red Blood Cell Count 2.51 M/mm3 (4.30-5.90); White Blood Cell Count 5.61 K/mm3 (4.00-11.30)
[2021-08-18 05:52] LABS: Alanine Aminotransfer (ALT/SGP 24 U/L (12-78); Albumin, Blood 2.6 g/dL (3.4-5.0); Alk Phos 54 U/L (50-136); Anion Gap 8 mmol/L (6-16); Aspartate Aminotrans (AST/SGOT 24 U/L (12-37); Bilirubin, Total 0.9 mg/dL (0.1-1.0); Blood Urea Nitrogen 30 mg/dL (8-24); CO2, Blood 23 mmol/L (21-32); Calcium, Blood 8.6 mg/dL (8.5-10.1); Chloride, Blood 110 mmol/L (98-108); Creatinine, Blood 0.97 mg/dL (0.60-1.20); Globulin, Blood 2.6 g/dL (2.2-4.0); Glomerular Filtration Rate >60 (60-); Glucose, Blood 133 mg/dL (70-99); Potassium, Blood 3.8 mmol/L (3.5-5.5); Sodium, Blood 141 mmol/L (136-145); Total Protein, Blood 5.2 g/dL (6.4-8.2)
--- NOTE | 2021-08-18 07:58 | NUR ---
SHIFT SUMMARY: PATIENT TOLERATED THE 2 UNITS WELL. BP DROP WAS OBSERVED AT END ON SECOND UNIT SBP REMAINS ABOVE 120. PATIENT HAD NEUROPATHY AT BASELINE AND CHRONIC BACK PAIN THAT HE USES PERCOCET FOR AT HOME. NEUROPATHIC PAIN IS TREATED WITH LYRICA SCHEDULED AND PRN LIDOCANE CREAM. PHARM REPORTS THE CREAM IS OUT OF STOCK. AN EXTRA NOW DOSE OF PERCOCET WAS GIVEN. SCD' APPLIED. BOTH GAVE GOOD EFFECT. PATIENT IS UNABLE TO COMPLETE MED REC, "MY TAKES CARE OF ALL THAT". PATIENT ALSO HAS AN INHALER NOT AVAILABLE FROM PHARMACY. INHALER WAS SENT TO PHARMACY FOR BARCODE APPLICATION. ORDER WAS OBTAINED FOR PATIENT TO USE OWN INHALER AT HOSPITAL WAS OBTAINED.
[2021-08-18 10:00] LABS: Influenza A, PCR NEGATIVE (NEGATIVE); Influenza B, PCR NEGATIVE (NEGATIVE); Resp Syncytial Virus, PCR NEGATIVE (NEGATIVE); SARS-Cov-2 (COVID-19) PCR, MMC NEGATIVE (NEGATIVE)
--- NOTE | 2021-08-18 14:42 | NUR ---
PT TRANSPORTED TO [facility]. AGREES WITH PLANNED PROCEDURE.
--- NOTE | 2021-08-18 14:50 | NUR ---
08/18/21 1450 Rima Denson History, Chart, Medications and Allergies reviewed before start of procedure. Patient confirms NPO status and agrees with scheduled surgery. 3-LEAD EKG REVIEWED WITH PHYSICIAN PRIOR TO START OF PROCEDURE. MONITOR INTACT WITH CONTINUOUS PULSE OXIMETRY AND INTERMITTENT BP. PATIENT DETERMINED TO BE ASA APPROPRIATE FOR MAC. ANESTHESIA PROVIDED BY DR GONZALEZ, BITE BLOCK AND POM MASK PLACED JUST PRIOR TO START OF PROCEDURE
--- NOTE | 2021-08-18 16:51 | NUR ---
DAY SHIFT SUMMARY 76 YR OLD MALE HERE FOR BLOOD LOSS ANEMIA. A/O X4. GI CONSULT TODAY WITH COLONOSCOPY. PT ON RA, WORKING WITH PT/OT/RT. PT ON TELE WITH SR AT 65 WITH 1ST DEGREE HEART BLOCK AND BUNDLE BRANCH BLOCK. . CALL LIGHT WITHIN REACH AND ABLE TO CALL APPROPRIATE. FAMILY AT BEDSIDE.
--- NOTE | 2021-08-19 04:55 | NUR ---
SHIFT SUMMARY: PATIENT REPORTS CHRONIC BILAT FOOT/LEG PAIN, PRN PERCOCET IS GIVEN WITH GOOD EFFECT, VSS. PATIENT SLEPT WELL WITH CPAP IN PLACE WITH NO ACUTE CHANGES.
[2021-08-19 05:05] LABS: BASOPHILS ABSOLUTE AUTO 0.02 K/mm3 (0.00-0.23); BASOPHILS PERCENT AUTO 0 % (0-2); EOSINOPHILS ABSOLUTE AUTO 0.08 K/mm3 (0.00-0.68); EOSINOPHILS PERCENT AUTO 2 % (0-6); Hematocrit 24.5 % (37.0-53.0); Hemoglobin 7.5 g/dL (13.5-17.5); IMMATURE GRAN ABSOLUTE AUTO 0.02 K/mm3 (0.00-0.10); IMMATURE GRAN PERCENT AUTO 0 % (0-1); LYMPHOCYTES ABSOLUTE AUTO 0.82 K/mm3 (0.84-5.20); LYMPHOCYTES PERCENT AUTO 15 % (21-46); MONOCYTES ABSOLUTE AUTO 0.32 K/mm3 (0.16-1.47); MONOCYTES PERCENT AUTO 6 % (4-13); Mean Corpuscular HGB 30.2 pg (26.0-34.0); Mean Corpuscular HGB Conc 30.6 g/dL (31.5-36.5); Mean Corpuscular Volume 99 fL (80-100); Mean Platelet Volume 10.7 fL (9.1-12.4); NEUTROPHILS ABSOLUTE AUTO 4.08 K/mm3 (1.96-9.15); NEUTROPHILS PERCENT AUTO 76 % (41-73); Platelet Count 169 K/mm3 (150-400); RDW Coefficient Variation 19.7 % (11.7-14.2); RDW Standard Deviation 69.8 fL (35.1-46.3); Red Blood Cell Count 2.48 M/mm3 (4.30-5.90); White Blood Cell Count 5.34 K/mm3 (4.00-11.30)
[2021-08-19 05:56] LABS: Alanine Aminotransfer (ALT/SGP 22 U/L (12-78); Albumin, Blood 2.7 g/dL (3.4-5.0); Albumin/Globulin Ratio 1.1 (0.8-1.8); Alk Phos 50 U/L (50-136); Anion Gap 5 mmol/L (6-16); Aspartate Aminotrans (AST/SGOT 28 U/L (12-37); Bilirubin, Total 0.6 mg/dL (0.1-1.0); Blood Urea Nitrogen 23 mg/dL (8-24); Bun/Creatinine Ratio 28.2 (12.0-20.0); CO2, Blood 24 mmol/L (21-32); Calcium, Blood 8.6 mg/dL (8.5-10.1); Chloride, Blood 113 mmol/L (98-108); Creatinine, Blood 0.82 mg/dL (0.60-1.20); Globulin, Blood 2.5 g/dL (2.2-4.0); Glomerular Filtration Rate >60 (60-); Glucose, Blood 114 mg/dL (70-99); Potassium, Blood 4.1 mmol/L (3.5-5.5); Sodium, Blood 142 mmol/L (136-145); Total Protein, Blood 5.2 g/dL (6.4-8.2)
--- NOTE | 2021-08-19 16:38 | NUR ---
DAY SHIFT SUMMARY 76 YR OLD MALE ADMITTED WITH BLOOD LOSS ANEMIA. 1 UNIT PRBC GIVEN THIS SHIFT, TOLERATED WELL. A/O X4. PT ON TELE WITH SR AT 69 WITH A 1ST DEGREE HB. CALL LIGHT WITHIN REACH AND ABLE TO CALL APPROPRIATELY.
[2021-08-19] MEDS ORDERED: SKYRIZI150 MG/1 M SC (19:13)
--- NOTE | 2021-08-20 05:13 | NUR ---
SUMMARY: PT A/OX4, CALLS APPROPRIATELY TO SPECIFY NEEDS AND IS PLEASANT AND COOPERATIVE W/CARE. HE'S UP W/1PA TO BSC AND USES URINAL INDEPENDENTLY AT EOB. PT IS AWARE TO ALERT STAFF IF HE BECOMES DIZZY, SOB OR EXHIBITS ANY S/S ANEMIA THOUGH HE WAS ASYPMTOMATIC T/O NOCTE. PT WEARS CPAP AD ROWENA BUT WEARS IT THE MAJORITY OF TIME FOR COMFORT. NO S/S RESP DISTRESS OR SOB OBSERVED. PT USES GLUCOMETER FOR CBG CHECKS, NO SLIDING SCALE INSULIN REQUIRED TONIGHT. PRN PERCOCET RECIEVED FOR RELIEF OF BLE PAIN. HE REMAINED NSR W/1ST DEGREE BLOCK AT 60'S BPM. VSS/AFEBRILE AND NO ACUTE CHAGNES. WCTM AND REPORT TO DAY RN.
[2021-08-20 05:40] LABS: BASOPHILS ABSOLUTE AUTO 0.03 K/mm3 (0.00-0.23); BASOPHILS PERCENT AUTO 1 % (0-2); EOSINOPHILS ABSOLUTE AUTO 0.09 K/mm3 (0.00-0.68); EOSINOPHILS PERCENT AUTO 2 % (0-6); Hematocrit 28.7 % (37.0-53.0); Hemoglobin 8.6 g/dL (13.5-17.5); IMMATURE GRAN ABSOLUTE AUTO 0.03 K/mm3 (0.00-0.10); IMMATURE GRAN PERCENT AUTO 1 % (0-1); LYMPHOCYTES ABSOLUTE AUTO 0.97 K/mm3 (0.84-5.20); LYMPHOCYTES PERCENT AUTO 20 % (21-46); MONOCYTES ABSOLUTE AUTO 0.28 K/mm3 (0.16-1.47); MONOCYTES PERCENT AUTO 6 % (4-13); Mean Corpuscular HGB 29.3 pg (26.0-34.0); Mean Corpuscular Volume 98 fL (80-100); Mean Platelet Volume 10.9 fL (9.1-12.4); NEUTROPHILS ABSOLUTE AUTO 3.56 K/mm3 (1.96-9.15); NEUTROPHILS PERCENT AUTO 72 % (41-73); Platelet Count 207 K/mm3 (150-400); RDW Coefficient Variation 19.8 % (11.7-14.2); RDW Standard Deviation 68.2 fL (35.1-46.3); Red Blood Cell Count 2.94 M/mm3 (4.30-5.90); White Blood Cell Count 4.96 K/mm3 (4.00-11.30)
[2021-08-20 06:31] LABS: Alanine Aminotransfer (ALT/SGP 26 U/L (12-78); Albumin, Blood 2.7 g/dL (3.4-5.0); Alk Phos 62 U/L (50-136); Anion Gap 7 mmol/L (6-16); Aspartate Aminotrans (AST/SGOT 24 U/L (12-37); Bilirubin, Total 0.6 mg/dL (0.1-1.0); Blood Urea Nitrogen 18 mg/dL (8-24); Bun/Creatinine Ratio 22.3 (12.0-20.0); CO2, Blood 24 mmol/L (21-32); Calcium, Blood 8.8 mg/dL (8.5-10.1); Chloride, Blood 113 mmol/L (98-108); Creatinine, Blood 0.81 mg/dL (0.60-1.20); Globulin, Blood 2.8 g/dL (2.2-4.0); Glomerular Filtration Rate >60 (60-); Glucose, Blood 124 mg/dL (70-99); Phosphorus, Blood 3.3 mg/dL (2.5-4.9); Sodium, Blood 144 mmol/L (136-145); Total Protein, Blood 5.5 g/dL (6.4-8.2)
--- NOTE | 2021-08-20 08:00 | NUR ---
PT PLEASANT COOP A/O X3. STATTES WAS IN [employer]. DENIES PIAN. HR REG, NO MURMKUR NOTED. PER TELE CAILIN WITH 1' BLOCK. LUNGS CLEAR, RESP EASY, UNLABORED. ON R.A. BT HYPO. STATES LAST BM 2 DAYS. MED PER EMAR. VOIDS KURINAL OR 1 ASST BSC. PT STATES FEELS READY GO HOME. BED IN LOW POSITION, CALL LITE IN REACH, CALLS APPROP
--- NOTE | 2021-08-20 08:52 | NUR ---
GLUCOSE HOME READING. 118, NO INSULIN DUE
--- NOTE | 2021-08-20 12:04 | NUR ---
CBG 139, NO INSULIN DUE
[2021-08-20] MEDS ORDERED: ATOR40TA PO (12:07)
[2021-08-20] MEDS ORDERED: PREG100 PO (12:07)
[2021-08-20] MEDS ORDERED: K-Dur20 MEQ PO (12:07)
[2021-08-20] MEDS ORDERED: TORSE20 PO (12:08)
--- NOTE | 2021-08-20 12:34 | NUR ---
DISCHARGE REVIEWED WITH PT AND . PT VERBALIZED UNDERSTANDING MEDS AND INNSTRUCTIONS. IV PULLED INTACT. TELE REMOVED AND RETURNED. PT TO DRESS SELF. WILL CALL WHEN READY TO GO
--- NOTE | 2021-08-20 12:55 | NUR ---
PT DISHARGE, WHEELED TO DOOR AT 1255 BY AIDE.
== END 2021-08-20 13:06 | disposition home health service (06) | DRG 378 ==
LOC: ER 20:34 → MEDS 08-18 02:32
PROVIDERS: Hospitalist; Physician Assistant; Student in an Organized Health Care Education/Training Program; ADMIT Internal Medicine
PROC: 0W3P8ZZ Control Bleeding in Gastrointestinal Tract, Via Natural or Artificial Opening Endoscopic (ICD-10-PCS; principal; 2021-08-19)
PROC: 30233N1 Transfusion of Nonautologous Red Blood Cells into Peripheral Vein, Percutaneous Approach (ICD-10-PCS; 2021-08-19)
DX: K25.4 Chronic or unspecified gastric ulcer with hemorrhage (principal); D62 Acute posthemorrhagic anemia; J44.9 Chronic obstructive pulmonary disease, unspecified; I48.91 Unspecified atrial fibrillation; I25.10 Atherosclerotic heart disease of native coronary artery without angina pectoris; K44.9 Diaphragmatic hernia without obstruction or gangrene; K31.7 Polyp of stomach and duodenum; Z20.822 Contact with and (suspected) exposure to COVID-19; Z88.0 Allergy status to penicillin; Z88.8 Allergy status to other drugs, medicaments and biological substances; Z88.5 Allergy status to narcotic agent; I48.0 Paroxysmal atrial fibrillation; G47.33 Obstructive sleep apnea (adult) (pediatric); E03.9 Hypothyroidism, unspecified; Z86.73 Personal history of transient ischemic attack (TIA), and cerebral infarction without residual deficits; Z98.890 Other specified postprocedural states; Z95.1 Presence of aortocoronary bypass graft; Z95.820 Peripheral vascular angioplasty status with implants and grafts; I35.0 Nonrheumatic aortic (valve) stenosis; Z79.899 Other long term (current) drug therapy; E11.22 Type 2 diabetes mellitus with diabetic chronic kidney disease; I12.9 Hypertensive chronic kidney disease with stage 1 through stage 4 chronic kidney disease, or unspecified chronic kidney disease
CPT/HCPCS: 0241U; 36415; 36430; 80053; 82947; 83735; 84100; 85014; 85018; 85025; 86850; 86900; 86901; 86923; 93005; 93010; 94640; 94660; 94760; 94762; 96374; 96376; 97161; 97165; 97530; 99285-25; A9270; C9113; G0378; J1815; J2704; J7120; P9016

== ENCOUNTER 2021-09-07 01:49 | Day surgery (SDC) | payer OTHER ==
[~2021-09-07 01:49] MED LIST changes: +CIPRODEX OTIC7.5 M1; +DICLOFENAC SOD100 GM; +K-Dur20 MEQ PO; +SKYRIZI150 MG/1 M SC; +TRULICITY0.75 MG/01 SQ
== END 2021-09-07 23:05 | disposition home or self-care (01) ==
LOC: WOUND 01:49
DX: E11.621 Type 2 diabetes mellitus with foot ulcer (principal); L97.528 Non-pressure chronic ulcer of other part of left foot with other specified severity; L89.622 Pressure ulcer of left heel, stage 2; E11.51 Type 2 diabetes mellitus with diabetic peripheral angiopathy without gangrene
CPT/HCPCS: G0463

== ENCOUNTER 2021-10-24 12:38 | Emergency (ER) | payer MEDICARE, OTHER ==
[~2021-10-24] VITALS: Ht 185.4 cm; Wt 124.3 kg
== END 2021-10-24 14:20 | disposition home or self-care (01) ==
LOC: ER 12:38
DX: M25.561 Pain in right knee (principal); I25.10 Atherosclerotic heart disease of native coronary artery without angina pectoris; J44.9 Chronic obstructive pulmonary disease, unspecified; G47.33 Obstructive sleep apnea (adult) (pediatric); E11.22 Type 2 diabetes mellitus with diabetic chronic kidney disease; N18.30 Chronic kidney disease, stage 3 unspecified; E03.9 Hypothyroidism, unspecified; Z95.1 Presence of aortocoronary bypass graft; Z79.4 Long term (current) use of insulin; Z79.899 Other long term (current) drug therapy; Z79.01 Long term (current) use of anticoagulants; Z88.5 Allergy status to narcotic agent; Z88.0 Allergy status to penicillin; Z88.8 Allergy status to other drugs, medicaments and biological substances; Z91.81 History of falling
CPT/HCPCS: 73562-RT

== ENCOUNTER → 2021-10-25 | Outpatient (CLI) | payer MEDICARE, OTHER ==
[2021-10-25 15:26] LABS: Source, Urine Voided
[2021-10-25 17:29] LABS: Appearance, Urine Cloudy (Clear); Bilirubin, Urine Neg (Neg); Blood, Urine 4+ (Neg); Color, Urine Yellow (P-Yellow); Glucose Qualitative, Urine 4+ (Neg); Ketones, Urine Neg (Neg); Leukocyte Esterase, Urine 2+ (Neg); Nitrite, Urine Neg (Neg); Protein, Urine 2+ (Neg); Urobilinogen, Urine 1+ (Normal)
[2021-10-25 17:46] LABS: White Blood Cells, Urine TNTC /hpf (0-5)
[2021-10-25 17:47] LABS: Bacteria Mod /hpf; Squamous Epithelial Cells Rare /hpf (Few)
== END | disposition home or self-care (01) ==
LOC: LAB 15:21 → LAB SHORT 15:21
PROVIDERS: Internal Medicine
DX: R35.0 Frequency of micturition (principal)
CPT/HCPCS: 81001; 87077; 87086; 87186

== ENCOUNTER 2021-10-31 13:40 | Emergency (ER) | payer MEDICARE, OTHER ==
[~2021-10-31] VITALS: Ht 182.9 cm; Wt 116.6 kg
== END 2021-10-31 16:34 | disposition home or self-care (01) ==
LOC: ER 13:40
DX: M25.561 Pain in right knee (principal); M79.672 Pain in left foot; I10 Essential (primary) hypertension; E11.9 Type 2 diabetes mellitus without complications; J44.9 Chronic obstructive pulmonary disease, unspecified; Z87.891 Personal history of nicotine dependence; Z79.4 Long term (current) use of insulin; Z79.899 Other long term (current) drug therapy; Z79.01 Long term (current) use of anticoagulants; Z88.5 Allergy status to narcotic agent; Z88.0 Allergy status to penicillin; Z88.8 Allergy status to other drugs, medicaments and biological substances; W18.2XXA Fall in (into) shower or empty bathtub, initial encounter
CPT/HCPCS: 73562-RT; 73630; J1170; J2405

== ENCOUNTER → 2022-04-18 | Outpatient (CLI) | payer MEDICARE, OTHER ==
[2022-04-18 15:21] LABS: Albumin, Blood 3.3 g/dL (3.4-5.0); Albumin/Globulin Ratio 0.8 (0.8-1.8); Bilirubin, Total 0.8 mg/dL (0.1-1.0); Bun/Creatinine Ratio 20.2 (12.0-20.0); Calcium, Blood 9.3 mg/dL (8.5-10.1); Creatinine, Blood 1.04 mg/dL (0.60-1.20); Globulin, Blood 3.9 g/dL (2.2-4.0); Potassium, Blood 4.2 mmol/L (3.5-5.5); Total Protein, Blood 7.2 g/dL (6.4-8.2)
[2022-04-18 15:25] LABS: BASOPHILS ABSOLUTE AUTO 0.07 K/mm3 (0.00-0.23); BASOPHILS PERCENT AUTO 1 % (0-2); EOSINOPHILS ABSOLUTE AUTO 0.05 K/mm3 (0.00-0.68); EOSINOPHILS PERCENT AUTO 1 % (0-6); Hematocrit 41.9 % (37.0-53.0); Hemoglobin 13.5 g/dL (13.5-17.5); IMMATURE GRAN ABSOLUTE AUTO 0.02 K/mm3 (0.00-0.10); IMMATURE GRAN PERCENT AUTO 0 % (0-1); LYMPHOCYTES ABSOLUTE AUTO 0.82 K/mm3 (0.84-5.20); LYMPHOCYTES PERCENT AUTO 14 % (21-46); MONOCYTES ABSOLUTE AUTO 0.27 K/mm3 (0.16-1.47); MONOCYTES PERCENT AUTO 5 % (4-13); Mean Corpuscular HGB 29.9 pg (26.0-34.0); Mean Corpuscular HGB Conc 32.2 g/dL (31.5-36.5); Mean Corpuscular Volume 93 fL (80-100); NEUTROPHILS ABSOLUTE AUTO 4.67 K/mm3 (1.96-9.15); NEUTROPHILS PERCENT AUTO 79 % (41-73); Platelet Count 80 K/mm3 (150-400); RDW Coefficient Variation 15.9 % (11.7-14.2); RDW Standard Deviation 53.3 fL (35.1-46.3); Red Blood Cell Count 4.52 M/mm3 (4.30-5.90)
[2022-04-18 15:36] LABS: Mean Platelet Volume 13.4 fL (9.1-12.4)
== END | disposition home or self-care (01) ==
LOC: LAB 14:59 → LAB SHORT 14:59
PROVIDERS: Physician Assistant Medical
DX: D69.6 Thrombocytopenia, unspecified (principal); D72.810 Lymphocytopenia; R07.89 Other chest pain
CPT/HCPCS: 80053; 84484; 85025; 85060; 85379

== ENCOUNTER → 2022-07-11 | Outpatient (CLI) | payer MEDICARE, OTHER ==
[2022-07-11 15:59] LABS: BASOPHILS ABSOLUTE AUTO 0.02 K/mm3 (0.00-0.23); BASOPHILS PERCENT AUTO 1 % (0-2); EOSINOPHILS ABSOLUTE AUTO 0.04 K/mm3 (0.00-0.68); EOSINOPHILS PERCENT AUTO 1 % (0-6); Hematocrit 33.9 % (37.0-53.0); Hemoglobin 10.6 g/dL (13.5-17.5); IMMATURE GRAN ABSOLUTE AUTO 0.01 K/mm3 (0.00-0.10); IMMATURE GRAN PERCENT AUTO 0 % (0-1); LYMPHOCYTES ABSOLUTE AUTO 0.51 K/mm3 (0.84-5.20); LYMPHOCYTES PERCENT AUTO 12 % (21-46); MONOCYTES PERCENT AUTO 5 % (4-13); Mean Corpuscular HGB 29.1 pg (26.0-34.0); Mean Corpuscular HGB Conc 31.3 g/dL (31.5-36.5); Mean Corpuscular Volume 93 fL (80-100); NEUTROPHILS ABSOLUTE AUTO 3.43 K/mm3 (1.96-9.15); NEUTROPHILS PERCENT AUTO 81 % (41-73); Platelet Count 78 K/mm3 (150-400); RDW Coefficient Variation 15.8 % (11.7-14.2); RDW Standard Deviation 54.2 fL (35.1-46.3); Red Blood Cell Count 3.64 M/mm3 (4.30-5.90); White Blood Cell Count 4.21 K/mm3 (4.00-11.30)
[2022-07-11 16:11] LABS: Albumin, Blood 3.2 g/dL (3.4-5.0); Albumin/Globulin Ratio 0.8 (0.8-1.8); Bilirubin, Total 0.4 mg/dL (0.1-1.0); Bun/Creatinine Ratio 16.2 (12.0-20.0); Calcium, Blood 9.1 mg/dL (8.5-10.1); Creatinine, Blood 1.42 mg/dL (0.60-1.20); Globulin, Blood 3.9 g/dL (2.2-4.0); Potassium, Blood 4.6 mmol/L (3.5-5.5); Total Protein, Blood 7.1 g/dL (6.4-8.2)
[2022-07-11 16:53] LABS: Mean Platelet Volume 13.2 fL (9.1-12.4)
== END | disposition home or self-care (01) ==
LOC: LAB 15:54 → LAB SHORT 15:54
PROVIDERS: Emergency Medicine
DX: R07.9 Chest pain, unspecified (principal)
CPT/HCPCS: 80053; 83880; 84484; 85025; 85379

== ENCOUNTER 2022-11-24 11:13 | Inpatient (IN) | payer OTHER ==
[~2022-11-24] VITALS: Ht 185.4 cm; Wt 99.2 kg
[~2022-11-24 11:13] MED LIST changes: +ACET325 PO; +CIPRODEX OTIC7.5 M1 BOTHEARS; +EPINEPHRINE HCL IM; +IPRATROPIUM BRO15 ML; +JARDIANCE25 MG PO; +LASIX40 MG; +LEVOTHYROXINE125 MC9 PO; +LOSA25 PO; +MODAFINIL100 M1 PO; +ONDA4ODT SL; +POTA10T PO; +PRED20 PO; +PREG50 PO; +SOAANZ20 M2 PO; +STRIVERDI RESPIM4 G1; +Vitamin B-1250 MCG PO
[2022-11-24 12:22] LABS: Hematocrit 23.6 % (37.0-53.0); Hemoglobin 6.9 g/dL (13.5-17.5); Mean Corpuscular HGB 26.8 pg (26.0-34.0); Mean Corpuscular HGB Conc 29.2 g/dL (31.5-36.5); Mean Corpuscular Volume 92 fL (80-100); Platelet Count 85 K/mm3 (150-400); RDW Standard Deviation 70.7 fL (35.1-46.3); Red Blood Cell Count 2.57 M/mm3 (4.30-5.90); White Blood Cell Count 5.97 K/mm3 (4.00-11.30)
[2022-11-24 12:23] LABS: Mean Platelet Volume 13.8 fL (9.1-12.4)
[2022-11-24 12:45] LABS: BAND PERCENT MAN 4 % (0-8); BASOPHILS ABSOLUTE MAN 0.05 K/mm3 (0.00-0.23); BASOPHILS PERCENT MAN 1 % (0-2); EOSINOPHILS PERCENT MAN 0 % (0-6); LYMPHOCYTES ABSOLUTE MAN 0.35 K/mm3 (0.84-5.20); LYMPHOCYTES PERCENT MAN 6 % (21-46); MONOCYTES ABSOLUTE MAN 0.11 K/mm3 (0.16-1.47); MONOCYTES PERCENT MAN 2 % (4-13); NEUTROPHILS ABSOLUTE MAN 5.43 K/mm3 (1.96-9.15); SEG NEUTROPHILS PERCENT MAN 87 % (41-73); TOTAL CELLS COUNTED 100
[2022-11-24 12:51] LABS: Albumin/Globulin Ratio 0.5 (0.8-1.8); Bilirubin, Total 0.5 mg/dL (0.1-1.0); Calcium, Blood 8.2 mg/dL (8.5-10.1); Creatinine, Blood 1.44 mg/dL (0.60-1.20); Globulin, Blood 3.7 g/dL (2.2-4.0); Potassium, Blood 4.4 mmol/L (3.5-5.5); Total Protein, Blood 5.7 g/dL (6.4-8.2)
[2022-11-24 16:03] LABS: Magnesium, Blood 2.1 mg/dL (1.6-2.4); Phosphorus, Blood 2.5 mg/dL (2.5-4.9)
[2022-11-24 17:14] VITALS: BP 135/44
[2022-11-24] MEDS ORDERED: ASPI81CH PO (18:40)
[2022-11-24 18:43] LABS: BASOPHILS ABSOLUTE AUTO 0.02 K/mm3 (0.00-0.23); BASOPHILS PERCENT AUTO 0 % (0-2); EOSINOPHILS ABSOLUTE AUTO 0.01 K/mm3 (0.00-0.68); EOSINOPHILS PERCENT AUTO 0 % (0-6); Hematocrit 26.3 % (37.0-53.0); Hemoglobin 7.9 g/dL (13.5-17.5); IMMATURE GRAN ABSOLUTE AUTO 0.02 K/mm3 (0.00-0.10); IMMATURE GRAN PERCENT AUTO 0 % (0-1); LYMPHOCYTES ABSOLUTE AUTO 0.65 K/mm3 (0.84-5.20); LYMPHOCYTES PERCENT AUTO 9 % (21-46); MONOCYTES ABSOLUTE AUTO 0.43 K/mm3 (0.16-1.47); MONOCYTES PERCENT AUTO 6 % (4-13); Mean Corpuscular HGB 27.2 pg (26.0-34.0); Mean Corpuscular Volume 91 fL (80-100); NEUTROPHILS ABSOLUTE AUTO 6.32 K/mm3 (1.96-9.15); NEUTROPHILS PERCENT AUTO 85 % (41-73); Platelet Count 89 K/mm3 (150-400); RDW Coefficient Variation 21.2 % (11.7-14.2); RDW Standard Deviation 67.8 fL (35.1-46.3); White Blood Cell Count 7.45 K/mm3 (4.00-11.30)
[2022-11-24 19:40] VITALS: BP 126/44
[2022-11-25 03:40] VITALS: BP 124/40
--- NOTE | 2022-11-25 04:15 | NUR ---
SUPERVISOR TELEPHONE INFORMATION SUMMARY VSS. IVF INFUSED ORDERED. IV FLUSHED. VERBAL RESPONSE APPROPRIATE TO QUESTIONS ASKED. INCONT OF URINE WITH FECAL SMEARS X 2. CLEANED/LINEN CHANGED. HOB ELEVATED. BM SMEARS DARK BROWN. O2 SATS 90'S. HAS BEEN RESTING QUIETLY WITH CPAP IN USE. CALL LIGHT IN REACH. WILL CONTINUE TO MONITOR
[2022-11-25 05:22] LABS: BASOPHILS ABSOLUTE AUTO 0.03 K/mm3 (0.00-0.23); BASOPHILS PERCENT AUTO 0 % (0-2); EOSINOPHILS ABSOLUTE AUTO 0.04 K/mm3 (0.00-0.68); EOSINOPHILS PERCENT AUTO 1 % (0-6); Hematocrit 26.4 % (37.0-53.0); Hemoglobin 7.7 g/dL (13.5-17.5); IMMATURE GRAN ABSOLUTE AUTO 0.03 K/mm3 (0.00-0.10); IMMATURE GRAN PERCENT AUTO 0 % (0-1); LYMPHOCYTES ABSOLUTE AUTO 0.76 K/mm3 (0.84-5.20); LYMPHOCYTES PERCENT AUTO 10 % (21-46); MONOCYTES ABSOLUTE AUTO 0.53 K/mm3 (0.16-1.47); MONOCYTES PERCENT AUTO 7 % (4-13); Mean Corpuscular HGB 26.6 pg (26.0-34.0); Mean Corpuscular HGB Conc 29.2 g/dL (31.5-36.5); Mean Corpuscular Volume 91 fL (80-100); NEUTROPHILS ABSOLUTE AUTO 5.99 K/mm3 (1.96-9.15); NEUTROPHILS PERCENT AUTO 81 % (41-73); Platelet Count 105 K/mm3 (150-400); RDW Coefficient Variation 21.7 % (11.7-14.2); RDW Standard Deviation 69.2 fL (35.1-46.3); White Blood Cell Count 7.38 K/mm3 (4.00-11.30)
[2022-11-25 05:47] LABS: Albumin, Blood 2.2 g/dL (3.4-5.0); Anion Gap 4 mmol/L (6-16); Blood Urea Nitrogen 66 mg/dL (8-24); Bun/Creatinine Ratio 53.2 (12.0-20.0); CO2, Blood 27 mmol/L (21-32); Calcium, Blood 8.7 mg/dL (8.5-10.1); Chloride, Blood 115 mmol/L (98-108); Creatinine, Blood 1.24 mg/dL (0.60-1.20); Glomerular Filtration Rate 60 (60-); Glucose, Blood 145 mg/dL (70-99); Phosphorus, Blood 2.7 mg/dL (2.5-4.9); Potassium, Blood 4.4 mmol/L (3.5-5.5); Sodium, Blood 146 mmol/L (136-145)
[2022-11-25 08:01] VITALS: BP 137/44
[2022-11-25 09:15] LABS: Source, Urine Foley catheter
[2022-11-25 09:24] LABS: Appearance, Urine Hazy (Clear); Bilirubin, Urine Neg (Neg); Blood, Urine 1+ (Neg); Color, Urine Yellow (P-Yellow); Glucose Qualitative, Urine Neg (Neg); Ketones, Urine Neg (Neg); Leukocyte Esterase, Urine 3+ (Neg); Nitrite, Urine Neg (Neg); Protein, Urine 1+ (Neg); Specific Gravity, Urine 1.005 (1.003-1.022); Urobilinogen, Urine NORM (Normal)
[2022-11-25 09:34] LABS: Bacteria Few /hpf; Squamous Epithelial Cells Few /hpf (Few); Transitional Epithelial Cells Rare /hpf (0-Rare); White Blood Cells, Urine 25-50 /hpf (0-5)
--- NOTE | 2022-11-25 12:25 | NUR ---
BLANKET SUPPORT AND FOAM PAD ADDED TO BED DUE TO L HEEL PRESSURE SORE AND EXCORIATED BOTTOM. WOUND CARE TO L HEEL AND 2ND L TOE COMPLETED. WOUNDS WASHED WITH WOUND CLEANSER AND PATTED DRY WITH GAUZE. HEEL DRESSINGS APPLIED TO L/R HEEL, PINK FOAM HEEL PROTECTOR APPLIED TO L HEEL. MEPILEX APPLIED TO COCCYX. PT EDUCATED ON PRESSURE SORES, HOW THEY DEVELOP AND HOW TO PREVENT PRESSURE WOUNDS. PT STATED HE ALWAYS TAKES HEEL PROTECTORS OFF. RE-INFORCED NEED TO KEEP HEEL PROTECTORS ON FOR PREVENTION AND FOR WOUND TO HEAL. PT CARIDAD.
[2022-11-25 15:33] VITALS: BP 134/38
[2022-11-25 17:39] LABS: Hematocrit 24.8 % (37.0-53.0); Hemoglobin 7.4 g/dL (13.5-17.5)
--- NOTE | 2022-11-25 18:23 | NUR ---
SHIFT SUMMARY: PT A/O X 4, 2 MAX ASSIST WITH WALKER AND GB. PLEASANT AND COOPERATIVE WITH CARE. PT RECEIVED CEFTRIAXONE TODAY FOR UTI AND TOLERATED WELL. NO S/S OF ADVERSE REACTION. PT CONTINUES TO HAVE BLACK TARRY STOOLS. DR. GO CALLED AND STATED HE WOULD ROUND TONIGHT. PT HAD ONE EPISODE OF NAUSEA TODAY AFTER RECEIVING AM MEDICATIONS WHICH RESOLVED WITH ZOFRAN. PT COMPLAINED OF PAIN TO BOTTOM /BACK. OXYCODONE GIVEN PER ORDER. PT VERY SLEEPY AFTER RECEIVING ONE TAB. NO OTHER CONCERNS THROUGHOUT THE DAY.
[2022-11-25 19:59] VITALS: BP 148/41
[2022-11-26 04:19] LABS: Hematocrit 24.5 % (37.0-53.0); Hemoglobin 7.5 g/dL (13.5-17.5)
--- NOTE | 2022-11-26 04:49 | NUR ---
PT IS A&O3, BEDREST DUE TO WEAKENSS, 2L NC AT BASELINE, VSS, PRN PAIN MEDICATION GIVEN X2 FOR BACK AND FOOT PAIN, NO ACUTE OVERNIGHT EVENTS, FIRE SAFETY EDUCATION PROVIDED, CONTINUE POC
[2022-11-26 05:42] LABS: BASOPHILS ABSOLUTE AUTO 0.04 K/mm3 (0.00-0.23); BASOPHILS PERCENT AUTO 0 % (0-2); EOSINOPHILS ABSOLUTE AUTO 0.07 K/mm3 (0.00-0.68); EOSINOPHILS PERCENT AUTO 1 % (0-6); Hematocrit 25.4 % (37.0-53.0); Hemoglobin 7.6 g/dL (13.5-17.5); IMMATURE GRAN ABSOLUTE AUTO 0.02 K/mm3 (0.00-0.10); IMMATURE GRAN PERCENT AUTO 0 % (0-1); LYMPHOCYTES PERCENT AUTO 11 % (21-46); MONOCYTES ABSOLUTE AUTO 0.64 K/mm3 (0.16-1.47); MONOCYTES PERCENT AUTO 7 % (4-13); Mean Corpuscular HGB 27.6 pg (26.0-34.0); Mean Corpuscular HGB Conc 29.9 g/dL (31.5-36.5); Mean Corpuscular Volume 92 fL (80-100); NEUTROPHILS ABSOLUTE AUTO 7.39 K/mm3 (1.96-9.15); NEUTROPHILS PERCENT AUTO 81 % (41-73); Platelet Count 123 K/mm3 (150-400); RDW Coefficient Variation 22.3 % (11.7-14.2); RDW Standard Deviation 73.1 fL (35.1-46.3); Red Blood Cell Count 2.75 M/mm3 (4.30-5.90); White Blood Cell Count 9.16 K/mm3 (4.00-11.30)
[2022-11-26 05:55] LABS: Calcium, Blood 8.5 mg/dL (8.5-10.1); Creatinine, Blood 1.25 mg/dL (0.60-1.20); Potassium, Blood 4.4 mmol/L (3.5-5.5)
[2022-11-26 06:08] VITALS: BP 134/45
[2022-11-26 08:23] VITALS: BP 138/49
--- NOTE | 2022-11-26 14:06 | NUR ---
Spoke with Pt's Primary RN Joleen and discussed case. Pt resting in bed with his eyes closed upon arrival. Pt breifly wakes to gentle verbal stimuli reporting being tired. Pt drifts back to sleep. Pt's spouse Lucy at bedside. Engaged in therapeutic listening as Lucy reports Pt lives with her, their son and daughter also lives with them. Engaged in gentle advanced care planning. Educated on disease process including trajectory and discussed the importance of planning for the future. Continued therapeutic listening. Spouse Lucy reports having a discussion with Dr Lal and hospice was discussed. Educated on hospice philosophy and answered questions. Lucy expresses appreciation and reports no other concerns at this time. Palliative Care will remain available
[2022-11-26 14:35] VITALS: BP 138/45
--- NOTE | 2022-11-26 15:02 | NUR ---
11/26/22 1502 Kali Veronica History, Chart, Medications and Allergies reviewed before start of procedure.MONITOR INTACT WITH CONTINUOUS PULSE OXIMETRY, CONTINUOUS END TITAL CO2, AND INTERMITTENT BLOOD PRESSURE.3-LEAD EKG REVIEWED WITH PHYSICIAN PRIOR TO START OF PROCEDURE.O2 VIA POM INTACT THROUGHOUT SEDATION/PROCEDURE.See Anesthesia record.
[2022-11-26 16:05] VITALS: BP 137/42
[2022-11-26 16:17] LABS: Hematocrit 26.3 % (37.0-53.0); Hemoglobin 7.7 g/dL (13.5-17.5)
--- NOTE | 2022-11-26 18:16 | NUR ---
SHIFT SUMMARY: PT A/O X 4 2 MAX ASSIST/BEDREST DUE TO WEAKNESS. PT PLEASANT AND COOPERATIVE WITH CARE. PT HAD EGD TODAY AND TOLERATED PROCEDURE. PT REPORTS DECREASED APPETITE POST PROCEDURE AND REFUSED DINNER. PT DENIES NAUSEA/PAIN AT THIS TIME. CONTINUES TO HAVE BLACK TARRY STOOLS.
--- NOTE | 2022-11-26 18:29 | NUR ---
NO EVIDENT USE OF IGNITION SOURCES TODAY.
[2022-11-26 20:31] VITALS: BP 138/43
--- NOTE | 2022-11-27 00:32 | NUR ---
PATIENT REPORTED 10/10 PAIN MEDICATED WITH PERCOCET, PATEINT SLEEPING NOW, SNORING LOUDLY, NO DISTRESS, RESPS EVEN AND NON LABORED, CALL LIGHT WITH IN REACH
[2022-11-27 04:31] VITALS: BP 135/49
--- NOTE | 2022-11-27 04:35 | NUR ---
NO ACUTE CHANGES, BLACK TARRY SMEAR, PLEASANT TO CARE, SLEPT THROUGH THE NIGHT WITH CPAP ON, MEDICATED FOR PAIN, 96% ON 2L VIA NC, DENIES CHEST PAIN, SNF VS HOME HEALTH DECISIONS FOR RN PROGRESSIVE CARE UNIT TODAY, CALL LIGHT WITH IN REACH. ALERT AND ORIENTED, SLOW TO RESPOND, WILL RELAY TO PM RN
[2022-11-27 06:12] LABS: BASOPHILS ABSOLUTE AUTO 0.03 K/mm3 (0.00-0.23); BASOPHILS PERCENT AUTO 1 % (0-2); EOSINOPHILS ABSOLUTE AUTO 0.08 K/mm3 (0.00-0.68); EOSINOPHILS PERCENT AUTO 1 % (0-6); Hematocrit 26.2 % (37.0-53.0); Hemoglobin 7.7 g/dL (13.5-17.5); IMMATURE GRAN ABSOLUTE AUTO 0.03 K/mm3 (0.00-0.10); IMMATURE GRAN PERCENT AUTO 1 % (0-1); LYMPHOCYTES ABSOLUTE AUTO 0.73 K/mm3 (0.84-5.20); LYMPHOCYTES PERCENT AUTO 12 % (21-46); MONOCYTES ABSOLUTE AUTO 0.43 K/mm3 (0.16-1.47); MONOCYTES PERCENT AUTO 7 % (4-13); Mean Corpuscular HGB Conc 29.4 g/dL (31.5-36.5); Mean Corpuscular Volume 92 fL (80-100); NEUTROPHILS ABSOLUTE AUTO 4.66 K/mm3 (1.96-9.15); NEUTROPHILS PERCENT AUTO 78 % (41-73); Platelet Count 107 K/mm3 (150-400); RDW Coefficient Variation 22.6 % (11.7-14.2); RDW Standard Deviation 75.6 fL (35.1-46.3); Red Blood Cell Count 2.85 M/mm3 (4.30-5.90); White Blood Cell Count 5.96 K/mm3 (4.00-11.30)
[2022-11-27 06:30] LABS: Albumin, Blood 2.3 g/dL (3.4-5.0); Albumin/Globulin Ratio 0.6 (0.8-1.8); Bilirubin, Total 0.6 mg/dL (0.1-1.0); Bun/Creatinine Ratio 48.9 (12.0-20.0); Creatinine, Blood 0.94 mg/dL (0.60-1.20); Globulin, Blood 3.6 g/dL (2.2-4.0); Potassium, Blood 3.9 mmol/L (3.5-5.5); Total Protein, Blood 5.9 g/dL (6.4-8.2)
[2022-11-27 08:31] VITALS: BP 153/49
[2022-11-27 14:53] VITALS: BP 138/49
--- NOTE | 2022-11-27 16:58 | NUR ---
SHIFT SUMMARY- PT IS A/O, PLESANT AND COOPERATIVE. HE IS EATING AND DRINKING WELL. HE IS INC OF URINE AND STOOL, HAD ONE SMALL SMEAR THIS SHIFT. HE WORKED WITH PT AND OT THIS SHIFT AND TOLORATED WELL. FAMILY AT BEDSIDE MOST OF THIS SHIFT. HIS BED IS IN THE LOW POSITION AND CALL LIGHT IS WITHIN REACH. EDUCATED ON FIRE SAFTY
[2022-11-27 19:30] VITALS: BP 136/48
[2022-11-28 04:57] VITALS: BP 130/43
--- NOTE | 2022-11-28 05:27 | NUR ---
NO ACUTE CHANGES THROUGH THE NIGHT TO BE GOING TO A SNF POSSIBLE TODAY, [facility], PATIENT AGREEABLE, VSS, CPAP ON THROUGH OUT THE NIGHT, USES CALL LIGHT APPROPRIATELY, WILL RELAY TO AM RN
[2022-11-28 07:00] LABS: Albumin/Globulin Ratio 0.5 (0.8-1.8); Bilirubin, Total 0.5 mg/dL (0.1-1.0); Bun/Creatinine Ratio 38.6 (12.0-20.0); Calcium, Blood 8.7 mg/dL (8.5-10.1); Creatinine, Blood 1.01 mg/dL (0.60-1.20); Globulin, Blood 3.7 g/dL (2.2-4.0); Total Protein, Blood 5.7 g/dL (6.4-8.2)
[2022-11-28 07:23] VITALS: BP 140/44
[2022-11-28 07:27] LABS: BASOPHILS ABSOLUTE AUTO 0.03 K/mm3 (0.00-0.23); BASOPHILS PERCENT AUTO 1 % (0-2); EOSINOPHILS ABSOLUTE AUTO 0.06 K/mm3 (0.00-0.68); EOSINOPHILS PERCENT AUTO 1 % (0-6); Hematocrit 24.8 % (37.0-53.0); Hemoglobin 7.5 g/dL (13.5-17.5); IMMATURE GRAN ABSOLUTE AUTO 0.03 K/mm3 (0.00-0.10); IMMATURE GRAN PERCENT AUTO 1 % (0-1); LYMPHOCYTES ABSOLUTE AUTO 0.74 K/mm3 (0.84-5.20); LYMPHOCYTES PERCENT AUTO 15 % (21-46); MONOCYTES ABSOLUTE AUTO 0.34 K/mm3 (0.16-1.47); MONOCYTES PERCENT AUTO 7 % (4-13); Mean Corpuscular HGB 27.4 pg (26.0-34.0); Mean Corpuscular HGB Conc 30.2 g/dL (31.5-36.5); Mean Corpuscular Volume 91 fL (80-100); NEUTROPHILS ABSOLUTE AUTO 3.62 K/mm3 (1.96-9.15); NEUTROPHILS PERCENT AUTO 75 % (41-73); Platelet Count 87 K/mm3 (150-400); RDW Coefficient Variation 22.5 % (11.7-14.2); RDW Standard Deviation 74.5 fL (35.1-46.3); Red Blood Cell Count 2.74 M/mm3 (4.30-5.90); White Blood Cell Count 4.82 K/mm3 (4.00-11.30)
[2022-11-28 12:12] LABS: Influenza A, PCR NEGATIVE (NEGATIVE); Influenza B, PCR NEGATIVE (NEGATIVE); Resp Syncytial Virus, PCR NEGATIVE (NEGATIVE); SARS-Cov-2 (COVID-19) PCR, MMC NEGATIVE (NEGATIVE)
[2022-11-28] MEDS ORDERED: CEFP200 PO (12:25)
[2022-11-28 15:50] VITALS: BP 119/42
--- NOTE | 2022-11-28 17:39 | NUR ---
PT DISHCARGED FROM THE UNIT. IV REMOVED. REPORT CALLED TO [facility]. PT LEFT UNIT VIA TRANSPORT.
== END 2022-11-28 16:46 | DRG 441 ==
LOC: ER 11:13 → MEDS 15:43 → ENPENDDIS 11-28 11:23 → MEDS 11-28 16:46
PROVIDERS: Emergency Medicine; Internal Medicine; ADMIT Family Medicine
PROC: 30233N1 Transfusion of Nonautologous Red Blood Cells into Peripheral Vein, Percutaneous Approach (ICD-10-PCS; principal; 2022-11-24)
PROC: 0T9B70Z Drainage of Bladder with Drainage Device, Via Natural or Artificial Opening (ICD-10-PCS; 2022-11-25)
PROC: 0DJ08ZZ Inspection of Upper Intestinal Tract, Via Natural or Artificial Opening Endoscopic (ICD-10-PCS; 2022-11-26)
DX: K76.6 Portal hypertension (principal); I50.31 Acute diastolic (congestive) heart failure; D62 Acute posthemorrhagic anemia; I13.0 Hypertensive heart and chronic kidney disease with heart failure and stage 1 through stage 4 chronic kidney disease, or unspecified chronic kidney disease; N17.9 Acute kidney failure, unspecified; F11.20 Opioid dependence, uncomplicated; E87.0 Hyperosmolality and hypernatremia; R64 Cachexia; Z66 Do not resuscitate; Z20.822 Contact with and (suspected) exposure to COVID-19; K31.89 Other diseases of stomach and duodenum; D63.1 Anemia in chronic kidney disease; I25.10 Atherosclerotic heart disease of native coronary artery without angina pectoris; J44.9 Chronic obstructive pulmonary disease, unspecified; I48.0 Paroxysmal atrial fibrillation; G47.33 Obstructive sleep apnea (adult) (pediatric); E11.51 Type 2 diabetes mellitus with diabetic peripheral angiopathy without gangrene; I35.0 Nonrheumatic aortic (valve) stenosis; E03.9 Hypothyroidism, unspecified; E78.5 Hyperlipidemia, unspecified; D12.6 Benign neoplasm of colon, unspecified; N40.0 Benign prostatic hyperplasia without lower urinary tract symptoms; E11.42 Type 2 diabetes mellitus with diabetic polyneuropathy; E66.01 Morbid (severe) obesity due to excess calories; G89.29 Other chronic pain; K59.00 Constipation, unspecified; F41.8 Other specified anxiety disorders; M54.9 Dorsalgia, unspecified; E11.22 Type 2 diabetes mellitus with diabetic chronic kidney disease; F43.10 Post-traumatic stress disorder, unspecified; N18.30 Chronic kidney disease, stage 3 unspecified; Z95.1 Presence of aortocoronary bypass graft; Z86.73 Personal history of transient ischemic attack (TIA), and cerebral infarction without residual deficits; Z98.890 Other specified postprocedural states; Z87.891 Personal history of nicotine dependence; Z86.79 Personal history of other diseases of the circulatory system; Z99.81 Dependence on supplemental oxygen; Z79.01 Long term (current) use of anticoagulants; Z99.89 Dependence on other enabling machines and devices; Z85.828 Personal history of other malignant neoplasm of skin; Z88.0 Allergy status to penicillin; Z88.8 Allergy status to other drugs, medicaments and biological substances; Z79.82 Long term (current) use of aspirin; Z79.899 Other long term (current) drug therapy; Z79.890 Hormone replacement therapy; Z68.28 Body mass index [BMI] 28.0-28.9, adult
CPT/HCPCS: 0241U; 36415; 36430; 74177; 80048; 80053; 80069; 81001; 82330; 82947; 83735; 84100; 84443; 85014; 85018; 85025; 86850; 86900; 86901; 86923; 87077; 87086; 87186; 94640; 94660; 94664; 94760; 94762; 96361; 96374-59; 96375; 97110; 97162; 97166; 97530; 99285-25; A9270; C9113; J0696; J1940; J2001; J2371; J2405; J2704; J3010; J7030; J7120; P9016; P9612; Q9967

== ENCOUNTER 2022-11-30 21:18 | Emergency (ER) | payer MEDICARE, OTHER ==
[~2022-11-30] VITALS: Ht 185.4 cm; Wt 117.9 kg
[~2022-11-30 21:18] MED LIST changes: +CEFP200 PO
[2022-11-30 22:03] LABS: BASOPHILS ABSOLUTE AUTO 0.03 K/mm3 (0.00-0.23); BASOPHILS PERCENT AUTO 1 % (0-2); EOSINOPHILS ABSOLUTE AUTO 0.04 K/mm3 (0.00-0.68); EOSINOPHILS PERCENT AUTO 1 % (0-6); Hematocrit 24.1 % (37.0-53.0); Hemoglobin 7.2 g/dL (13.5-17.5); IMMATURE GRAN ABSOLUTE AUTO 0.02 K/mm3 (0.00-0.10); IMMATURE GRAN PERCENT AUTO 0 % (0-1); LYMPHOCYTES ABSOLUTE AUTO 0.67 K/mm3 (0.84-5.20); LYMPHOCYTES PERCENT AUTO 11 % (21-46); MONOCYTES ABSOLUTE AUTO 0.31 K/mm3 (0.16-1.47); MONOCYTES PERCENT AUTO 5 % (4-13); Mean Corpuscular HGB 27.4 pg (26.0-34.0); Mean Corpuscular HGB Conc 29.9 g/dL (31.5-36.5); Mean Corpuscular Volume 92 fL (80-100); NEUTROPHILS ABSOLUTE AUTO 5.24 K/mm3 (1.96-9.15); NEUTROPHILS PERCENT AUTO 83 % (41-73); Platelet Count 93 K/mm3 (150-400); RDW Coefficient Variation 22.1 % (11.7-14.2); RDW Standard Deviation 74.5 fL (35.1-46.3); Red Blood Cell Count 2.63 M/mm3 (4.30-5.90); White Blood Cell Count 6.31 K/mm3 (4.00-11.30)
[2022-11-30 22:13] LABS: Albumin, Blood 1.9 g/dL (3.4-5.0); Albumin/Globulin Ratio 0.5 (0.8-1.8); Bilirubin, Total 0.6 mg/dL (0.1-1.0); Bun/Creatinine Ratio 31.8 (12.0-20.0); Calcium, Blood 8.5 mg/dL (8.5-10.1); Creatinine, Blood 0.91 mg/dL (0.60-1.20); Globulin, Blood 3.8 g/dL (2.2-4.0); Potassium, Blood 4.6 mmol/L (3.5-5.5); Total Protein, Blood 5.7 g/dL (6.4-8.2)
[2022-12-01 01:00] VITALS: BP 134/59
== END 2022-12-01 04:32 | disposition home or self-care (01) ==
LOC: ER 21:18
PROVIDERS: Student in an Organized Health Care Education/Training Program
DX: R07.9 Chest pain, unspecified (principal); R10.9 Unspecified abdominal pain; D64.9 Anemia, unspecified; Z88.0 Allergy status to penicillin; Z88.8 Allergy status to other drugs, medicaments and biological substances; Z79.899 Other long term (current) drug therapy; Z79.82 Long term (current) use of aspirin; I48.0 Paroxysmal atrial fibrillation; I25.10 Atherosclerotic heart disease of native coronary artery without angina pectoris; J44.9 Chronic obstructive pulmonary disease, unspecified; G47.33 Obstructive sleep apnea (adult) (pediatric); E11.22 Type 2 diabetes mellitus with diabetic chronic kidney disease; E03.9 Hypothyroidism, unspecified; E78.5 Hyperlipidemia, unspecified; N18.30 Chronic kidney disease, stage 3 unspecified; Z87.891 Personal history of nicotine dependence
CPT/HCPCS: 71045; 74177; 80053; 83605; 83690; 83880; 84484; 85025; 93005; 93010; 96374-59; 96375; 99285-25; A9270; C9113; J2405; J3010; Q9967